=== PATIENT | male | born 1945 | race Caucasian/White ===

== ENCOUNTER 2025-01-30 06:43 | Emergency (ER) | payer MEDICARE, SELFPAY ==
--- NOTE | 2025-01-30 06:38 | CTR_ITS ---
PROCEDURE INFORMATION: Exam: CT Head Without Contrast Exam date and time: 01/30/2025 6:36 AM Age: 79 years old Clinical indication: Stroke-like symptoms; Speech disturbance; Additional info: Symptoms of acute stroke TECHNIQUE: Imaging protocol: Computed tomography of the head without contrast. Radiation optimization: All CT scans at this facility use at least one of these dose optimization techniques: automated exposure control; mA and/or kV adjustment per patient size (includes targeted exams where dose is matched to clinical indication); or iterative reconstruction. Other technique: STROKE PROTOCOL was implemented. COMPARISON: No relevant prior studies available. RADIATION DOSE METRICS: Total DLP (mGy-cm): 1090.08 FINDINGS: Brain: No hemorrhage. Periventricular white matter lucency represents atherosclerotic encephalopathic changes. Cerebral ventricles: No ventriculomegaly. Ventricular prominence proportionate to the degree of atrophy. Paranasal sinuses: Visualized sinuses are unremarkable. No fluid levels. Mastoid air cells: Visualized mastoid air cells are well aerated. Bones: Unremarkable. No acute fracture. Soft tissues: Unremarkable. Other findings: No mass effect. CT/CT head thrombolytic 99781 IMPRESSION: No acute intracranial abnormality. ASSESSMENT: ASPECTS ([place] Stroke Program Early CT Score) is 10.
--- NOTE | 2025-01-30 06:39 | W.ED.NEUROSD ---
HPI - Neuro Symptoms/Deficit General: Chief Complaint: Neuro Symptoms/Deficit Stated Complaint: low bp, fever History of Present Illness: 79-year-old male brought in by EMS as a stroke alert. Other complaints are low blood pressure and fever. Last known well was 2030 last evening. Patient is visiting here from [place]. On arrival here he is some slurred speech is difficult to tell if it is his usual speech ro or if there is actually an acute change. He gives a completely negative review of systems he has some vomitus on the front of his T-shirt which he acknowledges but cannot really give an explanation. There is no family at the bedside. Patient relates he is on medications but is not able to give any of the names of them. His stroke score was done initially when he was seen and was 1 for speech although I do not have a baseline to compare or any collateral history to endorse. Associated symptoms: Deny chest pain Related Data Home Medications ?Medication ?Instructions ?Recorded ?Confirmed amlodipine 5 mg tablet 5 mg PO DAILY 01/30/25 01/30/25 citalopram 20 mg tablet 20 mg PO DAILY 01/30/25 01/30/25 clopidogrel 75 mg tablet 75 mg PO DAILY 01/30/25 01/30/25 fluticasone propionate 50 1 spray intranasal DAILY 01/30/25 01/30/25 mcg/actuation nasal spray,suspension furosemide 20 mg tablet 20 mg PO DAILY PRN Edema 01/30/25 01/30/25 metoprolol succinate 25 mg 25 mg PO DAILY 01/30/25 01/30/25 tablet,extended release 24 hr rosuvastatin 40 mg tablet 40 mg PO DAILY 01/30/25 01/30/25 tramadol 50 mg tablet 50 mg PO Q8H PRN Pain 01/30/25 01/30/25 Previous Rx's ?Medication ?Instructions ?Recorded losartan 100 mg tablet 50 mg (1/2 x 100 mg) PO DAILY #30 01/30/25 tabs sitagliptin phosphate 50 mg tablet 50 mg PO DAILY #30 tabs 01/30/25 (Januvia) Allergies Allergy/AdvReac Type Severity Reaction Status Date / Time No Known Allergies Allergy Unverified 01/30/25 08:37 Review of Systems Const: Denies: fever(s) or chills Card: Denies: chest pain Resp: Denies: dyspnea GI: Denies: abdominal pain : Denies: dysuria, urinary frequency or urinary urgency Musc: Denies: neck pain or back pain Skin/Breast: Denies: rash NIH stroke score NIHSS: Level Of Consciousness - 1a: 0 Level Of Consciousness Questions - 1b: Both Correct Level Of Consciousness Commands - 1c: Both Correct Best Gaze - 2: Normal Visual Farrar - 3: No Visual Loss Facial Palsy - 4: Normal Motor Arm Right - 5: No Drift Motor Arm Left - 5: No Drift Motor Leg Right - 6: No Drift Motor Leg Left - 6: No Drift Limb Ataxia - 7: Absent Sensory - 8: Normal Best Language - 9: No Aphasia Dysarthia - 10: Mild/Moderate Dysarthia Extinction And Inattention - 11: 0 Score: Total Score: 1 Physical Exam Const: GENERAL APPEARANCE: cooperative ORIENTATION/CONSCIOUSNESS: Yes awake HENMT: COMMON NORMALS: normocephalic, atraumatic and hearing grossly normal bilaterally HEAD & SCALP: normocephalic and atraumatic Resp: COMMON NORMALS: normal respiratory effort, No retractions, No use of accessory muscles and clear to auscultation bilaterally AUSCULTATION: clear to auscultation bilaterally Cardio: COMMON NORMALS: regular rate, regular rhythm and No murmurs present (Cardio) RATE: regular rate RHYTHM: regular rhythm GI: COMMON NORMALS: Soft to palpation and No hepatosplenomegaly present AUSCULTATION: Yes normoactive bowel sounds PALPATION: Yes Soft to palpation, No Tenderness to palpation present (GI), No Guarding due to palpation present (GI) and Yes No hepatosplenomegaly present Extremity: COMMON NORMALS: normal to inspection, capillary refill normal, no clubbing, cyanosis or edema, no calf tenderness and no pedal edema Skin: COMMON NORMALS: no rashes or lesions noted GENERAL SKIN EXAM: no rashes or lesions noted Course Vital Signs: Vital signs: Vital Signs Temperature 97.7 F 01/30/25 06:45 Pulse Rate 62 01/30/25 08:31 Respiratory Rate 18 01/30/25 06:45 Blood Pressure 142/71 01/30/25 07:30 Pulse Oximetry 96 01/30/25 08:31 Oxygen Delivery Me thod Room Air 01/30/25 08:31 MDM - Neuro Symptoms/Deficit Medical Decision Making Glucose on arrival was 58 serum glucose 33. Patient was given orange juice as well as [address] head is negative. Patient glucose was rechecked he is doing much better he is not taking any of his morning meds today's was last glimepiride was yesterday. Family feels he is back at his baseline has been eating and drinking sustaining his blood glucose independently. He would prefer to go home at this point. Asked him to continue to monitor his blood sugars closely. He should stop his glimepiride and his metformin will put him on Januvia 50 mg once daily. Additionally because his creatinine is significantly elevated decrease his losartan to 50 mg daily. He should follow-up with his doctor as soon as he is able when he returns home. If blood sugar decreases and they cannot get it up or improved he should return to the emergency room. Medical Records I reviewed the patient's medical records. Lab Data I reviewed the patient's lab results. 01/30/25 06:46 01/30/25 06:[address] 01/30/25 06:38 IMPRESSION: No acute intracranial abnormality. ASSESSMENT: ASPECTS ([place] Stroke Program Early CT Score) is 10. ADDENDUM: 01/30/25 0704 THIS REPORT CONTAINS FINDINGS THAT MAY BE CRITICAL TO PATIENT CARE. The findings were electronically communicated via transcribed final report with TIM GUERRIER at 7:01 AM UROLOGIC NURSE on 01/30/2025. The findings were acknowledged and understood. Chest X-Ray 01/30/25 07:45 IMPRESSION: No acute chest abnormality. Laboratory Results WBC 9.29 10^3/uL (3.29-11.43) 01/30/25 06:46 RBC 5.18 10^6/uL (3.85-5.65) 01/30/25 06:46 Hgb 14.70 g/dL (11.27-16.99) 01/30/25 06:46 Hct 46.7 % (37-53) 01/30/25 06:46 MCV 90.2 fl (82-101) 01/30/25 06:46 MCH 28.4 pg (27-33) 01/30/25 06:46 MCHC 31.5 g/dL (30-55) 01/30/25 06:46 RDW 15.2 % (12.1-15.1) H 01/30/25 06:46 Plt Count 339 10^3/cmm (157-399) 01/30/25 06:46 MPV 9.4 fL (7.4-10.4) 01/30/25 06:46 Neut % (Auto) 68.6 % 01/30/25 06:46 Lymph % (Auto) 15.1 % 01/30/25 06:46 Meagher % (Auto) 13.3 % 01/30/25 06:46 Eos % (Auto) 1.7 % 01/30/25 06:46 Baso % (Auto) 1.0 % 01/30/25 06:46 Neut # (Auto) 6.37 10^3/uL (1.8-7.7) 01/30/25 06:46 Lymph # (Auto) 1.4 10^3/uL (0.8-4.8) 01/30/25 06:46 Meagher # (Auto) 1.2 10^3/uL (0.2-0.9) H 01/30/25 06:46 Eos # (Auto) 0.2 10^3/uL (0.0-0.8) 01/30/25 06:46 Baso # (Auto) 0.1 10^3/uL (0.0-0.1) 01/30/25 06:46 Nucleated RBC % (auto) 0 % 01/30/25 06:46 Nucleated RBCs # 0.0 /100WBC 01/30/25 06:46 PT 12.30 SECONDS (12.1-14.9) 01/30/25 06:46 INR 0.85 (0.8-1.2) 01/30/25 06:46 APTT 29.3 SECONDS (23.9-36.7) 01/30/25 06:46 Sodium 142 mmol/L (136-145) 01/30/25 06:46 Potassium 4.1 mmol/L (3.5-5.1) 01/30/25 06:46 Chloride 100 mmol/L (98-107) 01/30/25 06:46 Carbon Dioxide 26 mmol/L (22-29) 01/30/25 06:46 Anion Gap 20.1 (5-19) H 01/30/25 06:46 BUN 48 mg/dL (8-23) H 01/30/25 06:46 Creatinine 4.3 mg/dL (0.7-1.2) H 01/30/25 06:46 GFR Calculation Not Reportable 01/30/25 06:46 Glucose 39 mg/dL (65-115) L* 01/30/25 06:46 POC Glucose 106 mg/dL (70-110) 01/30/25 09:52 Calculated Osmolality 303 mOsm/kg (285-295) H 01/30/25 06:46 Lactic Acid 1.1 mmol/L (0.5-2.2) 01/30/25 06:46 Calcium 9.0 mg/dL (8.5-10.5) 01/30/25 06:46 Total Bilirubin 0.4 mg/dL (0.15-1.2) 01/30/25 06:46 AST 26 U/L (0-40) 01/30/25 06:46 ALT 13 U/L (0-41) 01/30/25 06:46 Alkaline Phosphatase 60 U/L (40-130) 01/30/25 06:46 Total Protein 8.2 g/dL (6.6-8.7) 01/30/25 06:46 Albumin 4.2 g/dL (3.5-5.2) 01/30/25 06:46 Globulin 4.0 g/dL (1.3-4.6) 01/30/25 06:46 Urine Color Yellow (Yellow) 01/30/25 07:50 Urine Appearance Cloudy (CLEAR) A 01/30/25 07:50 Urine pH 5.0 (5-7) 01/30/25 07:50 Ur Specific [place] 1.015 (1.005-1.030) 01/30/25 07:50 Urine Protein 2+ (Negative) A 01/30/25 07:50 Urine Glucose (UA) Negative (Normal) 01/30/25 07:50 Urine Ketones Negative (Negative) 01/30/25 07:50 Urine Blood 1+ (Negative) A 01/30/25 07:50 Urine Nitrate Negative (Negative) 01/30/25 07:50 Urine Bilirubin Negative (Negative) 01/30/25 07:50 Urine Urobilinogen 1.0 mg/dL (Negative) 01/30/25 07:50 Ur Leukocyte Esterase Negative (Negative) 01/30/25 07:50 Urine RBC 0-2 /hpf (0-2) 01/30/25 07:50 Urine WBC 0-5 /hpf (0-5) 01/30/25 07:50 Ur Squamous Epith Cells 11-20 /hpf (0-5) H 01/30/25 07:50 Amorphous Sediment Not Reportable 01/30/25 07:50 Urine Bacteria Trace /hpf (NONE) 01/30/25 07:50 Hyaline Casts 7.85 /lpf 01/30/25 07:50 Coarse Granular Casts 0-4 /lpf H 01/30/25 07:50 Urine Opiates Screen Negative ng/mL (Negative) 01/30/25 07:50 Ur Barbiturates Screen Negative ng/mL (Negative) 01/30/25 07:50 Ur Phencyclidine Scrn Negative ng/mL (Negative) 01/30/25 07:50 Ur Amphetamines Screen Negative ng/mL (Negative) 01/30/25 07:50 U Benzodiazepines Scrn Negative ng/mL (Negative) 01/30/25 07:50 Urine Cocaine Screen Negative ng/mL (Negative) 01/30/25 07:50 U Marijuana (THC) Screen Negative ng/mL (Negative) 01/30/25 07:50 Influenza A (PCR) Negative (Negative) 01/30/25 07:20 Influenza Type B (PCR) Negative (Negative) 01/30/25 07:20 RSV (PCR) Negative (Negative) 01/30/25 07:20 SARS-CoV-2 (PCR) Negative (Negative) 01/30/25 07:20 All radiology interpretation(s) finalized by discharge EKG Data EKG 1: I personally reviewed and interpreted this EKG as follows: Interpretation: EKG 01/30/2025 7:50 AM sinus rhythm rate of 64 WI interval [address]Tc [address] No acute [address] changes noted. No EKG available for comparison. Discharge Plan Discharge Patient Disposition: Home Clinical Impression: Hypoglycemia Condition: Stable Prescriptions: New Januvia 50 mg tablet 50 mg PO DAILY Qty: 30 0RF Changed losartan 100 mg tablet 50 mg PO DAILY Qty: 30 0RF Discontinued glimepiride 2 mg tablet 2 mg PO QAM metformin 500 mg tablet 500 mg PO BID No Action clopidogrel 75 mg tablet 75 mg PO DAILY amlodipine 5 mg tablet 5 mg PO DAILY tramadol 50 mg tablet 50 mg PO Q8H PRN (Reason: Pain) citalopram 20 mg tablet 20 mg PO DAILY metoprolol succinate 25 mg tablet extended release 24 hr 25 mg PO DAILY fluticasone propionate 50 mcg/actuation spray,suspension 1 spray INTRANASAL DAILY rosuvastatin 40 mg tablet 40 mg PO DAILY furosemide 20 mg tablet 20 mg PO DAILY PRN (Reason: Edema) Discharge Orders: Discharge ED (Routine); Ordered 01/30/25 Ordered By: Tim Guerrier Discharge Diet: Usual diet Discharge Activity: Resume usual activity Patient Instructions: Opioid Safety, Pain Management, Patient Portal & Umesh Instructions Activity Restrictions/Additional Instructions: Thank you for choosing [facility] for your healthcare needs today. It is very important that you follow up as instructed or that you return to the Emergency Department should you have concerns or if your condition changes or worsens in any way. Emergency department visits are focused on emergent conditions, in some cases you may require further evaluation on an outpatient basis. You were seen in the emergency room with difficulty with your speech and evaluated for or stroke which was negative. We did find that your glucose was significantly low at 33. You were given IV fluids to raise your glucose which did improve and your symptoms resolved. CT of your head was negative. We noted signs of chronic kidney issues on your lab work. Recommend the following in regards to your medications. Stop the glimepiride and the metformin as these can both be detrimental to your kidney function. Decrease your losartan to 50 mg once daily (half tablet). Finally we will start you on Januvia 50 mg daily, while this medicine helps lower blood sugars a does not cause hypoglycemia. You should follow-up with your doctor as soon as you are able when she return home. (Please note that included in your discharge packet is information concerning opioid safety and pain management. This information is given to all patients were discharged from the ER regardless of their discharge diagnosis or the medicines they usually take or are prescribed.) Print Language: Maltese Coding Level of Care Code ED Visual C Developer for Trena Chirinos
[2025-01-30 06:45] VITALS: BP 161/75; PULSE 67; RESP 18; TEMP 36.5; O2SAT 95; BMI 24.4
[2025-01-30 06:57] LABS: Hematocrit 46.7 % (37-53); Hemoglobin 14.70 g/dL (11.27-16.99); Mean Corpuscular HGB Conc 31.5 g/dL (30-55); Mean Corpuscular Hemoglobin 28.4 pg (27-33); Mean Corpuscular Volume 90.2 fl (82-101); Nucleated Red Blood Cells % 0 %; Platelet Count 339 10^3/cmm (157-399); Red Blood Count 5.18 10^6/uL (3.85-5.65); White Blood Count 9.29 10^3/uL (3.29-11.43)
[2025-01-30 07:10] VITALS: BP 161/75; PULSE 65
[2025-01-30 07:12] LABS: Lactic Sepsis W/Reflex 1.1 mmol/L (0.5-2.2)
[2025-01-30 07:13] LABS: Alanine Aminotransferase 13 U/L (0-41); Albumin Level 4.2 g/dL (3.5-5.2); Alkaline Phosphatase 60 U/L (40-130); Anion Gap 20.1 (5-19); Aspartate Amino Transferase 26 U/L (0-40); Blood Urea Nitrogen 48 mg/dL (8-23); Calcium 9.0 mg/dL (8.5-10.5); Carbon Dioxide 26 mmol/L (22-29); Chloride 100 mmol/L (98-107); Globulin 4.0 g/dL (1.3-4.6); Osmolality Calculated 303 mOsm/kg (285-295); Potassium 4.1 mmol/L (3.5-5.1); Sodium 142 mmol/L (136-145); Total Protein 8.2 g/dL (6.6-8.7)
[2025-01-30 07:18] LABS: Glucose 39 mg/dL (65-115)
[2025-01-30 07:23] LABS: INR 0.85 (0.8-1.2); Prothrombin Time 12.30 SECONDS (12.1-14.9)
[2025-01-30 07:24] LABS: Partial Thromboplastin Time 29.3 SECONDS (23.9-36.7)
[2025-01-30 07:30] VITALS: BP 142/71
--- NOTE | 2025-01-30 07:45 | XR_ITS ---
WS: [id number] XR chest 1V portable 02017 REASON FOR EXAM: Fever FINDINGS: No comparison examination. Mild to moderate tortuosity of the thoracic aorta with calcified aortic arch. Cardiomegaly. Coronary artery stent. Additional intracardiac device uncertain location likely atrial. Elevation of the right hemidiaphragm. Calcified granulomatous disease bilaterally. No acute pulmonary parenchymal or pleural abnormality. 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 Mild dextroscoliosis and degenerative spondylosis in the thoracic spine. XR/XR chest 1V portable [id number] IMPRESSION: No acute chest abnormality.
--- NOTE | 2025-01-30 07:50 | ECG_ITS ---
[facility] Test Date: 2025-01-30 Pat Name: Sha Bailey Department: Room: Gender: Male Slag Worker: : 1945 Requested By: Tim Nair Order Number: [id number] Mathieu MD: Alfredo Alvarez M.D. Measurements Intervals [place] Rate: 64 P: 46 SC: 200 QRS: -19 QRSD: 90 T: 28 QT: 418 QTc: 432 Interpretive Statements SINUS RHYTHM POSSIBLE ANTERIOR MYOCARDIAL INFARCTION , OF INDETERMINATE AGE [30 ms Q WAVE IN V3/V4, OR R < 0.2 mV IN V4] No previous ECG available for comparison Electronically Signed On 01-31-2025 14:04:57 PERSONNEL TRAINING OFFICER by Alfredo Alvarez M.D. [email or web address]
[2025-01-30 08:11] LABS: Glucose Urine UA Negative (Normal); Nitrate Urine Negative (Negative); Specific Gravity, Urine 1.015 (1.005-1.030)
[2025-01-30 08:12] LABS: Respiratory Syncytial Virus Ce NEGATIVE (Negative); SARS-CoV-2 PCR NEGATIVE (Negative)
[2025-01-30 08:20] LABS: PCP Screen Urine Negative (Negative)
[2025-01-30 08:25] LABS: Add Urine Microscopic? YES
[2025-01-30 08:31] VITALS: PULSE 62; O2SAT 96
--- NOTE | 2025-01-30 08:34 | PC.PHAR ---
Addendum entered by Adelina Hanna 01/30/25 08:37: Pt states he took all his meds yesterday. Original Note: [facility] states pt stopped filling Amlodipine 5mg when new order came in for Losartan 100mg. Pt also stopped filling Metformin 500mg last fill 08/27/24 90ds. Meds are verified with [facility] in [place] [phone].
[2025-01-30 08:35] LABS: UA Slide Review UA Slide Review Perf
== END 2025-01-30 10:03 | disposition home or self-care (01) ==
PROVIDERS: Emergency Provider Family Medicine
DX: R73.9 Hyperglycemia, unspecified (principal); Z11.52 Encounter for screening for COVID-19; Z79.02 Long term (current) use of antithrombotics/antiplatelets
CPT/HCPCS: 36416; 70450; 71045; 80053; 80306; 81001; 82962; 83605; 85025; 85610; 85730; 87040; 87637; 93005; 99285; J7030; J7799; J9999

== ENCOUNTER 2025-01-30 18:28 | Inpatient (IN) | payer MEDICARE, SELFPAY ==
[2025-01-30 18:31] VITALS: BP 137/62; PULSE 72; RESP 18; TEMP 36.7; O2SAT 100
--- OUTSIDE RECORDS SUMMARY | 2025-01-30 18:34 | XMS_ITS | Encounter Summary ---
Author Organization [facility] Address [address] [place], [address] Care Team Providers Care Punch Press Operator Helper Name Role Phone LeanneerTaurus MD Unavailable [phone] Mark Chery MD Primary Care Provider [phone] Lorena Ariza [facility] [phone] Merlene Wallis RN Unavailable Unavailable Milo Olson RN Unavailable Unavailable Osiris Mota RN Unavailable [phone] Pancho English MD Primary Care Provider [phone] Bernadette Bedolla RN Unavailable [phone] Encounter Details Date Type Department Care Team (Late st Contact Info) Description 04/15/2018 Medicare CCM [facility] [address] [place] [address] [place] [phone] Milo Olson, RN Type 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 disease, without long-term current use of insulin (HCC Code) (Primary Dx) Social History Tobacco Use Types Packs/Day Years Used Date Smoking Tobacco: Former Smokeless Tobacco: Former Chew Alcohol Use Standard Drinks/Week Comments No 0 (1 standard drink = 0.6 oz pur e alcohol) PHQ-2 Answer Date Recorded PHQ-2 Score 3 01/20/2018 Sex and Gender Information Value Date Recorded Sex Assigned at Not on file Legal Sex Male 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 Answer Date of Assessment Author No 11/30/2017 2:00 PM CDT Adolfo De La Garza, SULY * *Walks in Home Answer Date of Assessment Author No 11/30/2017 2:00 PM CDT Adolfo De La Garza, SULY * *Bathing Answer Date of Assessment Author No 11/30/2017 2:00 PM CDT Adolfo De La Garza RN * *Due to conditions difficulty w/ independent errands,shopping? Answer Date of Assessment Author No 11/30/2017 2:00 PM CDT Adolfo De La Garza RN documented as of this encounter Mental Status * *Due to conditions have difficulty w/decisions Answer Entry Date Author No 11/30/2017 2:00 PM CDT documented in this encounter Plan of Treatment Upcoming Encounters Date Type Department Care Team (Late st Contact Info) Description 02/09/2025 11:00 AM DENTAL INSTRUMENT MAKER Office Visit [facility] [address] [place] [address] 1[address] [place] [address] Sha Briggs MD [address] [place] [phone] 02/25/2025 2:00 PM DENTAL INSTRUMENT MAKER Office Visit [facility] [address] [place] [address], [place] [address] Fran Prajapati MD [address] [place] [phone] 02/27/2025 10:00 AM DENTAL INSTRUMENT MAKER Office Visit [facility] [address] [facility] [place] [address] Pancho English MD [address] [place] [address], [place] [phone] 05/13/2025 3:10 PM DENTAL INSTRUMENT MAKER [facility] Visit [facility] [address] [place] [address] Chris Read, LACE WINDER [address] [facility] [place] [address] documented as of this encounter Goals Goal Patient Goal Type Associated Problems Recent Progress Patient-Stated? Author Limit sodium intake to less than 2000 mg daily Additional Goals/Barriers Not on track(2024 2:34 PM CDT) Celestina Bejarano RN Take Plavix as prescribed Additional Goals/Barriers On track(2024 2:34 PM CDT) Celestina Bejarano RN CHF / AFib / CAD Additional Goals/Barriers On track(2024 2:33 PM CDT) Celestina Bejarano RN Note: Maintain pressure on skin tears for at least 5 minutes. Inspect skin with daily care and observe for bruising. Observe for signs of bleeding and report to provider immediately. Monitor for blood in urine, tarry colored stools, or bleeding after brushing teeth. Report any episodes of increased shortness of breath or chest pain Additional Goals/Barriers On track(2024 2:34 PM CDT) Celestina Bejarano RN Report any weight gain of three pounds overnight or five pounds in a week Additional Goals/Barriers On track(2024 2:34 PM CDT) Celestina Bejarano RN Note: CONGESTIVE HEART FAILURE (CHF): 1. Weigh yourself every morning at the same time with the same amount of clothes and before you eat or drink anything, and keep track of the readings on these sheets. Use the same scale each day. 2. Learn what your D ry Weight is, which is what you weigh without any extra water (fluid). Your goal is to keep your weight within 4 pounds of your dry weight. 3. If you gain more than 2-3 pounds in one day (24 hours) OR If you gain more than __5__lbs in five [5] days OR If you have swelling in legs, feet, or ankles, or you feel short of breath, then: A. Take an extra __Lasix 20 mg___ (fluid pill) that afternoon in addition to the usual dose of water pill that you usually take. Keep head elevated after eating Additional Goals/Barriers On track(2024 2:33 PM CDT) No Celestina Higgins RN Limit intake of spicy foods, greasy foods, and foods high in acid Additional Goals/Barriers Not on track(2024 2:33 PM CDT) Celestina Bejarano RN Limit intake of sugars, starches, and carbs and eat more fruits and vegetables Additional Goals/Barriers On track(2024 2:34 PM CDT) Celestina Bejarano RN Limit intake of fatty foods and eat more baked and grilled meats Additional Goals/Barriers On track(2024 2:33 PM CDT) Celestina Bejarano RN Blood Pressure < 140/90 Blood Pressure 134/63(12/02 9:37 AM CDT) Celestina Bejarano RN Plate method diet Diet On track(2024 2:34 PM CDT) Argentina Palacios RN Note: Diet, e.g. plate method - half plate fruits and vegetables, 1/4 plate lean meat, 1/4 plate starch (high-fiber/whole grain). Avoid carbohydrates in beverages (e.g. sweet tea, regular soda, fruit juice) Increase water intake Diet On track(2024 2:33 PM CDT) No Argentina Escamilla RN Note: Drink 40-60 ounces of water daily. Increase physical activity Lifestyle On track(2024 2:33 PM CDT) Argentina Palacios RN Note: Walk 10 minutes 3 days a week. Patient walks 4-6 miles daily. LDL CHOLESTEROL < 70 Result Component 62( 5 9:33 AM CDT) No Celestina Higgins RN PHOSPHORUS < 5.5 Result Component 3.6(08/25/19 8:08 PM CDT) No Celestina Higgins RN POTASSIUM < 5.5 Result Component 4.4(09/02/19 9:33 AM CDT) No Celestina Higgins RN Note: Low Potassium diet as needed to maintain this goal. HEMOGLOBIN A1C < 6.5 Result Component 5.9(12/03/19 9:38 AM CDT) No Argentina Escamilla RN documented as of this encounter Visit Diagnoses Diagnosis Type 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 disease, without long-term current use of insulin (HCC Code) (HCC)- Primary documented in this encounter Additional Health Concerns Infection Onset Date Last Indicated Resolved Time COVID-19 pending 09/19/2019 09/19/2019 09/21/2019 6:36 AM CDT COVID-19 pending 10/21/2019 10/21/2019 10/22/2019 12:10 PM CDT Mycoplasma pending 10/22/2019 10/22/2019 0 6:05 PM CDT COVID-19 pending 03/08/2020 03/08/2020 03/08/2020 11:04 AM DENTAL INSTRUMENT MAKER COVID-19 pending 03/08/2020 03/08/2020 03/08/2020 2:29 PM DENTAL INSTRUMENT MAKER COVID-19/FLU/RSV pending 05/08/2020 05/08/2020 10:52 AM DENTAL INSTRUMENT MAKER Mycoplasma pending 05/08/2020 05/08/2020 1 1:00 PM DENTAL INSTRUMENT MAKER documented as of this encounter Care Teams Punch Press Operator Helper Relationship Specialty Start Date End Date Mark Chery MD [address] [facility] [place], [phone] PCP - General Family Medicine 12/06/16 06/12/22 Pancho English MD [address] [place] [address], [place] [address] PCP - General Family Medicine 06/13/22 Taurus Jerry MD Cardiology 05/06/14 05/20/20 Lorena Ariza LMSW [address] [place] [address] Motorcycle Assembler 12/27/17 06/29/24 Merlene Wallis RN [address] [place] [address] CCM Computer Networking Instructor 12/27/17 Milo Olson RN [address] [place] [address] CCM Computer Networking Instructor 03/14/18 Osiris Mota, RN [address] [place] [address] Electric Repair Supervisor 08/25/21 09/23/21 Bernadette Bedolla, RN [address] [place] [address] Electric Repair Supervisor 06/30/24 documented as of this encounter
--- OUTSIDE RECORDS SUMMARY | 2025-01-30 18:34 | XMS_ITS | Encounter Summary ---
Author Organization [facility] Address [address] [place] [address] Care Team Providers Care External Auditor Name Role Phone Taurus Jerry MD Unavailable [phone] Mark Chery MD Primary Care Provider [phone] Celestina Higgins RN Unavailable Unavaila Lorena Crenshaw [facility] Unavailable [phone] Merlene Wallis RN Unavailable Unavailable Milo Olson RN Unavailable Unavailable Osiris Mota RN Unavailable [phone] Pancho English MD Primary Care Provider [phone] Mark Chery MD Unavailable [phone] Mark Chery MD Unavailable [phone] Bernadette Bedolla RN Unavailable [phone] Reason for Visit * Reason Comments Medication Refill Encounter Details Date Type Department Care Team (Late st Contact Info) Description 04/01/2014 Refill [facility] Care Services [address] [address] Lenore Ferrell MD [address] [place] [address] [place], [phone] Medication Refill Social History Tobacco Use Types Packs/Day Years Used Date Smoking Tobacco: Former Smokeless Tobacco: Current Chew Alcohol Use Standard Drinks/Week Comments No 0 (1 standard drink = 0.6 oz pur e alcohol) Sex and Gender Information Value Date Recorded Sex Assigned at Not on file Legal Sex Male 6:30 AM EDGER FEEDER Gender Identity Not on file Sexual Orientation Not on file documented as of this encounter Functional Status * Hearing - Left Ear Answer Date of Assessment Author No 01/28/2014 8:09 PM Russell Nunez RN * *Are you blind or serious difficulty even w/glasses? Answer Date of Assessment Author No 01/28/2014 8:09 PM EDGER FEEDER Russell Gilbert RN * *Walks in Home Answer Date of Assessment Author No 01/28/2014 8:09 PM Russell Nunez RN * *Bathing Answer Date of Assessment Author No 01/28/2014 8:09 PM Russell Nunez RN * *Due to conditions difficulty w/ independent errands,shopping? Answer Date of Assessment Author No 01/28/2014 8:09 PM Russell Nunez RN documented as of this encounter Mental Status * *Due to conditions have difficulty w/decisions Answer Entry Date Author No 01/28/2014 8:09 PM EDGER FEEDER documented in this encounter Plan of Treatment Upcoming Encounters Date Type Department Care Team (Late st Contact Info) Description 02/09/2025 11:00 AM EDGER FEEDER Office Visit [facility] Urology [address] [place] [address] 1st [place] [address] Sha Briggs MD [address] [place] [phone] 02/25/2025 2:00 PM EDGER FEEDER Office Visit Heart & Vascular [address] [place] [address], [place] [address] Fran Prajapati MD [address] [place] [address], [place] [phone] 02/27/2025 10:00 AM EDGER FEEDER Office Visit [address] [place] [address] Pancho English MD [address] [place] [address], [place] [phone] 05/13/2025 3:10 PM EDGER FEEDER [facility] [address] [place], [address] Chris Read, FEDERAL MEDIATION COMMISSIONER [address] [facility] [place], [address] documented as of this encounter Visit Diagnoses Not on filedocumented in this encounter Additional Health Concerns Infection Onset Date Last Indicated Resolved Time COVID-19 pending 09/19/2019 09/19/2019 09/21/2019 6:36 AM CDT COVID-19 pending 10/21/2019 10/21/2019 10/22/2019 12:10 PM CDT Mycoplasma pending 10/22/2019 10/22/2019 0 6:05 PM CDT COVID-19 pending 03/08/2020 03/08/2020 03/08/2020 11:04 AM EDGER FEEDER COVID-19 pending 03/08/2020 03/08/2020 03/08/2020 2:29 PM EDGER FEEDER COVID-19/FLU/RSV pending 05/08/2020 05/08/2020 10:52 AM EDGER FEEDER Mycoplasma pending 05/08/2020 05/08/2020 1:00 PM EDGER FEEDER documented as of this encounter Care Teams External Auditor Relationship Specialty Start Date End Date Mark Chery MD [address] [facility], [address] PCP - General Family Medicine 12/06/16 06/12/22 Pancho English MD [address] [place] [address], [phone] PCP - General Family Medicine 06/13/22 Mark Chery MD [address] [place] [address], [place] [address] PCP - Attributed Provider-Medicare ACO 09/08/17 10/16/17 Mark Chery MD [address] [facility], [address] PCP - Attributed Provider-Medicare ACO 12/09/17 03/25/18 Taurus Jerry MD Cardiology 05/06/14 05/20/20 Celestina Higgins, SULY [address] [facility], [address] CCM Radio News Writer 03/21/17 05/09/17 Lorena Ariza [facility] [address] [place] [address] Pediatric Physical Therapist 12/27/17 06/29/24 Merlene Wallis RN [address] [place] [address] CCM Radio News Writer 12/27/17 10/02/18 Milo Olson RN [address] [place] [address] CCM Radio News Writer 03/14/18 07/05/18 Osiris Mota, RN [address] [place] [address] Blanket Weaver 08/25/21 09/23/21 Bernadette Bedolla, SULY [address] [place] [address] Blanket Weaver 06/30/24 documented as of this encounter
--- OUTSIDE RECORDS SUMMARY | 2025-01-30 18:34 | XMS_ITS | Encounter Summary ---
Author Organization [facility] Address [address] [place] [address] Care Team Providers Care Neurosurgical Nurse Practitioner Name Role Phone Pancho English MD Primary Care Provider Bernadette Bedolla RN Unavailable [phone] Encounter Details Date Type Department Care Team (Late st Contact Info) Description 12/04/2024 Orders Only [facility] Care Services [address] [place] [address], [place] [address] Provider, MD Twin [address] [place] [address], [place] [address] Social History Tobacco Use Types Packs/Day Years Used Date Smoking Tobacco: Former Cigarettes Q uit: 1992 Pipe Passive Smoke Exposure: Never Smokeless Tobacco: Former Chew Quit: 1992 Alcohol Use Standard Drinks/Week Comments No 0 (1 standard drink = 0.6 oz pur e alcohol) B1300 Health Literacy Answer Date Recor ded How often do you need to hav e someone help you when you read instructions, pamphlets, or other written material from your doctor or pharmacy? Never 06/30/2024 [facility] Utilities Answer Date Recorded In the past 12 months has e [employer], gas, oil, or water [employer] threatened to shut off services in your home? No 06/30/2024 Humiliation, Afraid, Rape, and Kick questionnair e Answer Date Recorded Within the last year, have y ou been afraid of your partner or ex-partner? No 06/30/2024 Within the last year, have y ou been humiliated or emotionally abused in other ways by your partner or ex-partner? No Within the last year, have y ou been kicked, hit, slapped, or otherwise physically hurt by your partner or ex-partner? No 06/30/2024 Within the last year, have y ou been raped or forced to have any kind of sexual activity by your partner or ex-partner? No 06/30/2024 Social Connection and Isolation Panel Answer Date Recorded In a typical week, how many times do you talk on the phone with family, friends, or neighbors? More than three times a week 06/30/2024 Frequency of Social Gatherin gs with Friends and Family Not on file 06/30/2024 Attends Mosque Services Not on file 06/30 Do you belong to any clubs o r organizations such as spiritism groups, unions, fraternal or athletic groups, or school groups? No 06/30/2024 How often do you attend meet ings of the clubs or organizations you belong to? Never 06/30/2024 Are you , , di vorced, , never , or living with a partner? 06/30/2024 AUDIT-C Answer Date Recorded Q1: How often do you have a drink containing alcohol? Never 06/30/2024 Q2: How many drinks containi ng alcohol do you have on a typical day when you are drinking? Patient does not drink Q3: How often do you have si x or more drinks on one occasion? Never 06/30/2024 Overall Financial Resource Strain (CARDIA) Answe r Date Recorded How hard is it for you to pa y for the very basics like food, housing, medical care, and heating? Not hard at all 06/30/2024 PHQ-2 Answer Date Recorded Patient Health Questionnaire-2 Score 0 2024 [facility] [place] [facility] Occupat ional Health - Occupational Stress Questionnaire Answer Date Recorded Do you feel stress - tense, restless, nervous, or anxious, or unable to sleep at night because your mind is troubled all the time - these days? Not at all 06/30/2024 Exercise Vital Sign Answer Date Recorde d On average, how many days pe r week do you engage in moderate to strenuous exercise (like a brisk walk)? 0 days 06/30/2024 On average, how many minutes do you engage in exercise at this level? 0 min 06/30/2024 Hunger Vital Sign Answer Date Recorded Within the past 12 months, y ou worried that your food would run out before you got the money to buy more. Never true 07/01/19 Within the past 12 months, t he food you bought just didn't last and you didn't have money to get more. Never true 06/30/2024 PRAPARE - Transportation Answer Date Re corded In the past 12 months, has l ack of transportation kept you from medical appointments or from getting medications? No 06/11 In the past 12 months, has l ack of transportation kept you from meetings, work, or from getting things needed for daily living? No 06/30/2024 PHQ-9 Answer Date Recorded PHQ-9 Total Score 6 06/30/2024 Housing Stability Vital Sign Answer Mino e Recorded In the last 12 months, was t here a time when you were not able to pay the mortgage or rent on time? No 06/30/2024 In the past 12 months, how m any times have you moved where you were living? 0 06/30/2024 At any time in the past 12 m [facility], were you homeless or living in a correction (including now)? No 06/30/2024 NCSS - Interpersonal Safety Answer Date Recorded Do you feel physically and e motionally safe where you currently live? Yes 06/30/2024 Within the past 12 months, h ave you been hit, slapped, kicked or otherwise physically hurt by someone? No 06/30/2024 Within the past 12 months, h ave you been humiliated or emotionally abused in other ways by your partner or ex-partner? No 06/30/2024 Hunger Vital Sign Answer Date Recorded Within the past 12 months, y ou worried that your food would run out before you got the money to buy more. Never true 09/06/19 25 Within the past 12 months, t he food you bought just didn't last and you didn't have money to get more. Never true 2024 [facility] Utilities Answer Date Recorded In the past 12 months has th e electric, gas, oil, or water company threatened to shut off services in your home? No 2024 [facility] - Inadequate Housing Answer Date Re corded What is your living situation today? I have a [address] place to live [address] you li ve. Do you have problems with any of the following? None of the above 2024 [facility] - Transportation Answer Date Record ed In the past 12 months, has l ack of reliable transportation kept you from medical appointments, meetings, work or from getting things needed for daily living? No 2024 [facility] - Personal Safety Answer Date Recor ded How often does anyone, len zaragoza family and friends, physically hurt you? Never 2024 How often does anyone, len zaragoza family and friends, insult or talk down to you? Never 2024 How often does anyone, len zaragoza family and friends, threaten you with harm? Never 2024 How often does anyone, len zaragoza family and friends, scream or curse at you? Never 2024 [facility] - Financial Strain Answer Date Benito rded How hard is it for you to pa y for the very basics like food, housing, medical care, and heating? Would you say it is: Not hard at all 2024 [facility] - Employment Answer Date Recorded Do you want help finding or keeping work or a job? I do not need or want help 2024 [facility] - Social Connections Answer Date Re corded If for any reason you need h elp with day-to-day activities such as bathing, preparing meals, shopping, managing finances, etc., do you get the help you need? I don't need any help 2024 How often do you feel lonely or isolated from those around you? Never 2024 [facility] - Education Answer Date Recorded Do you speak a language other than [place] at [facility]? No 2024 Do you want help with school or training? For example, starting or completing job training or getting a high school diploma, GED or equivalent. No 2024 [facility] - Physical Activity Answer Date Rec orded In the last 30 days, other t osborne the activities you did for work, on average, how many days per week did you engage in moderate exercise (like walking fast, running, jogging, dancing, swimming, biking, or other similar activities)? 0 2024 On average, how many minutes did you usually spend exercising at this level on one of those days? 0 2024 [facility] - Substance Use Answer Date Recorde d How many times in the past 1 2 months have you had 5 or more drinks in a day (males) or 4 or more drinks in a day (females)? One drink is 12 ounces of beer, 5 ounces of wine, or 1.5 ounces of 80-proof spirits. Never 2024 How many times in the past 1 2 months have you used tobacco products (like cigarettes, cigars, snuff, chew, electronic cigarettes)? Never 2024 How many times in the past y ear have you used prescription drugs for non-medical reasons? Never 2024 How many times in the past year have you used il legal drugs? Never 2024 [facility] - Mental Health Answer Date Recorde d Little interest or pleasure in doing things Not at all 2024 Feeling down, depressed, or hopeless Not at all 2024 Stress means a situation in which a person feels tense, restless, nervous, or anxious, or is unable to sleep at night because his or her mind is troubled all the time. Do you feel this kind of stress these days? Not at all 2024 [facility] - Self-Management Answer Date Recor ded Because of a physical, menta l, or emotional condition, do you have serious difficulty concentrating, remembering, or making decisions? (5 years old or older) No 2024 Because of a physical, menta l, or emotional condition, do you have difficulty doing errands alone such as visiting a doctor's office or shopping? (15 years old or older) No 2024 Education Answer Date Recorded What is the highest level of school you have completed or the highest degree you have received? Associate degree: occupational, technical, or vocational program 08/30/2020 Sex and Gender Information Value Date Recorded Sex Assigned at Not on file Legal Sex Male 6:30 AM POT ROOM SUPERVISOR Gender Identity Not on file Sexual Orientation Not on file documented as of this encounter Functional Status * Hearing - Left Ear Answer Date of Assessment Author Yes 05/05/2022 1:00 PM Esther Anders RN * *Are you blind or serious difficulty even w/glasses? Answer Date of Assessment Author No 05/05/2022 1:00 PM POT ROOM SUPERVISOR Esther Lawton, RN * *Walks in Home Answer Date of Assessment Author No 05/05/2022 1:00 PM POT ROOM SUPERVISOR Esther Lawton, RN * *Bathing Answer Date of Assessment Author No 05/05/2022 1:00 PM Esther Anders, SULY * *Due to conditions difficulty w/ independent errands,shopping? Answer Date of Assessment Author No 05/05/2022 1:00 PM POT ROOM SUPERVISOR Esther Lawton RN documented as of this encounter Mental Status * *Due to conditions have difficulty w/decisions Answer Entry Date Author No 05/05/2022 1:00 PM POT ROOM SUPERVISOR Ady Max MD documented in this encounter Plan of Treatment Upcoming Encounters Date Type Department Care Team (Late st Contact Info) Description 02/09/2025 11:00 AM POT ROOM SUPERVISOR Office Visit [facility] Urology [address] [place] [address] 1st [place] [address] Sha Briggs MD [address] [place] [address], [place] [phone] 02/25/2025 2:00 PM POT ROOM SUPERVISOR Office Visit Heart & Vascular [address] [place] [address], [place] [address] Fran Prajapati MD [address] [place] [address], [place] [phone] 02/27/2025 10:00 AM POT ROOM SUPERVISOR Office Visit [address] [place] [phone] Pancho English MD [address] [place] [address], [place] [phone] 05/13/2025 3:10 PM POT ROOM SUPERVISOR [facility] [address] [facility] [address] [place], [address] Chris Read FNP [address] [facility] [place] [address] documented as of this encounter Goals Goal Patient Goal Type Associated Problems Recent Progress Patient-Stated? Author Limit sodium intake to less than 2000 mg daily Additional Goals/Barriers Not on track(2024 2:34 PM CDT) No Celestina Higgins RN Take Plavix as prescribed Additional Goals/Barriers [...] intake Diet On track(2024 2:33 PM CDT) Argentina Palacios RN Note: Drink 40-60 ounces of water daily. Increase physical activity Lifestyle On track(2024 2:33 PM CDT) Argentina Palacios RN Note: Walk 10 minutes 3 days a week. Patient walks 4-6 miles daily. LDL CHOLESTEROL < 70 Result Component 62( 9:33 AM CDT) No Celestina Higgins RN PHOSPHORUS < 5.5 Result Component 3.6(08/25/19 8:08 PM CDT) No Celestina Higgins RN POTASSIUM < 5.5 Result Component 4.4(09/02/19 9:33 AM CDT) No Celestina Higgins RN Note: Low Potassium diet as needed to maintain this goal. HEMOGLOBIN A1C < 6.5 Result Component 5.9(12/03/19 9:38 AM CDT) No Argentina Escamilla RN documented as of this encounter Procedures Procedure Name Priority Date/Time Associated Diagnosis Comments DIABETIC EYE EXAM - EXTERNAL Routine 11/24/2024 documented in this encounter Results * Diabetic Eye Exam - External (11/24/2024) Diabetic Retinopathy No Hypertensive Retinopathy No Anatomical Region Laterality Modality Radiographic Isabelle ging us Historical Provider MD OPHTHALMOLOGY SERVICES OR DERABLES Edited Result - Final documented in this encounter Visit Diagnoses Not on filedocumented in this encounter Care Teams Neurosurgical Nurse Practitioner Relationship Specialty Start Date End Date Pancho English MD [address] [place] [phone] PCP - General Family Medicine 06/13/22 Bernadette Bedolla RN [address] [place] [address] [place] [address] Facing Baster 06/30/24 documented as of this encounter
--- OUTSIDE RECORDS SUMMARY | 2025-01-30 18:34 | XMS_ITS | Encounter Summary ---
Author Organization [facility] Address [address] [address] Care Team Providers Care Risk Advisor Name Role Phone Taurus Jerry MD Unavailable [phone] Mark Chery MD Primary Care Provider [phone] Lorena Ariza [facility] Unavailable [phone] Osiris Mota RN Unavailable [phone] Pancho English MD Primary Care Provider [phone] Bernadette Bedolla RN Unavailable [phone] Encounter Details Date Type Department Care Team (Latest Contact Info) Description 12/18/2018 Scanned Document EXTERNAL Scan, Clinical [address] [facility] [address] Social History Tobacco Use Types Packs/Day Years Used Date Smoking Tobacco: Former Cigarettes Smokeless Tobacco: Former Chew Alcohol Use Standard Drinks/Week Comments No 0 (1 standard drink = 0.6 oz pur e alcohol) PHQ-2 Answer Date Recorded PHQ-2 Score 0 09/02/2018 Sex and Gender Information Value Date Recorded Sex Assigned at Not on file Legal Sex Male 6:30 AM FISHING VESSEL OPERATOR Gender Identity Not on file Sexual Orientation Not on file documented as of this encounter Functional Status * Hearing - Left Ear Answer Date of Assessment Author No 05/29/2018 6:22 PM CDT Familia Antunez, RN * *Are you blind or serious difficulty even w/glasses? Answer Date of Assessment Author No 05/29/2018 6:22 PM CDT Familia Antunez RN * *Walks in Home Answer Date of Assessment Author No 05/29/2018 6:22 PM CDT Familia Antunez RN * *Bathing Answer Date of Assessment Author No 05/29/2018 6:22 PM CDT Familia Antunez, SULY * *Due to conditions difficulty w/ independent errands,shopping? Answer Date of Assessment Author No 05/29/2018 6:22 PM CDT Familia Antunez RN documented as of this encounter Mental Status * *Due to conditions have difficulty w/decisions Answer Entry Date Author No 05/29/2018 6:22 PM CDT documented in this encounter Plan of Treatment Upcoming Encounters Date Type Department Care Team (Late st Contact Info) Description 02/09/2025 11:00 AM FISHING VESSEL OPERATOR Office Visit [facility] Urology [address] [place] [address] 1st [place] [address] Sha Briggs MD [address] [place] [address] 02/25/2025 2:00 PM FISHING VESSEL OPERATOR Office Visit Heart & Vascular [address] [place] [address], [place] [address] Fran Prajapati MD [address] [place] [address], [place] [address] 02/27/2025 10:00 AM FISHING VESSEL OPERATOR Office Visit [address] [place] [phone] Pancho English MD [address] [place] [address], [place] [phone] 05/13/2025 3:10 PM FISHING VESSEL OPERATOR [facility] [address] [place] [address] Chris Read FNP [address] [place] [address] documented as of this encounter Goals Goal [...] CDT) Celestina Bejarano RN Limit intake of spicy foods, greasy [...] diet Diet On track(2024 2:34 PM CDT) No Argentina Escamilla RN Note: Diet, e.g. plate method - [...] 70 Result Component 62( 9:33 AM CDT) Celestina Bejarano RN PHOSPHORUS < 5.5 Result Component 3.6(08/25/19 8:08 PM CDT) No Celestina Higgins RN POTASSIUM < 5.5 Result Component 4.4(09/02/19 9:33 AM CDT) No Celestina Higgins RN Note: Low Potassium diet as needed to maintain this goal. HEMOGLOBIN A1C < 6.5 Result Component 5.9(12/03/19 9:38 AM CDT) No Argentina Escamilal RN documented as of this encounter Visit Diagnoses Not on filedocumented in this encounter Additional Health Concerns Infection Onset Date Last Indicated Resolved Time COVID-19 pending 09/19/2019 09/19/2019 09/21/2019 6:36 AM CDT COVID-19 pending 10/21/2019 10/21/2019 10/22/2019 12:10 PM CDT Mycoplasma pending 10/22/2019 10/22/2019 0 6:05 PM CDT COVID-19 pending 03/08/2020 03/08/2020 03/08/2020 11:04 AM FISHING VESSEL OPERATOR COVID-19 pending 03/08/2020 03/08/2020 03/08/2020 2:29 PM FISHING VESSEL OPERATOR COVID-19/FLU/RSV pending 05/08/2020 05/08/2020 10:52 AM FISHING VESSEL OPERATOR Mycoplasma pending 05/08/2020 05/08/2020 1 1:00 PM FISHING VESSEL OPERATOR documented as of this encounter Care Teams Risk Advisor Relationship Specialty Start Date End Date Mark Chery MD [address] [place] [phone] PCP - General Family Medicine 12/06/16 06/12/22 Pancho English MD [address] [place] [address], [place] [phone] PCP - General Family Medicine 06/13/22 Taurus Jerry MD Cardiology 05/06/14 05/20/20 Lorena Ariza LMSW [address] [place] [address], [place] [address] Sleep Technologist 12/27/17 06/29/24 Osiris Mota, SULY [address] [place] [address], [place] [address] Baffle Installer 08/25/21 09/23/21 Bernadette Bedolla, RN [address] [place] [address], [place] [phone] Baffle Installer 06/30/24 documented as of this encounter
--- OUTSIDE RECORDS SUMMARY | 2025-01-30 18:34 | XMS_ITS ---
Author Organization [facility] Address [address] [place] [address] [place], [address] Care Team Providers Care Sales Associate Key Holder Name Role Phone Pancho English MD Primary Care Provider [phone] Bernadette Bedolla RN Unavailable [phone] Active Problems Patient Care Coordination No te Formatting of this note migh t be different from the original. The patient is a 79 y.o. male followed by Pancho Stone MD who has agreed to participate in the APCM program. The patient resides with family in own home. The patient does not require assistance with ADLS. The patient follows a low-sodium, diabetic diet and does notparticipate in an exercise program. In review of the chart, the patient has the following chronic diagnoses: CAD, HTN, CHF, AFIB, CKD5, OA, DM, GERD, HLD, Depression, BPH Problem Noted Date Diagnosed Date Hypertensive heart and chron ic kidney disease with heart failure and with stage 5 chronic kidney disease, or end stage renal disease 05/19/2022 History of prostate cancer 05/19/2022 Nausea and vomiting 05/05/2022 Primary localized osteoarthrosis of right should er region 05/30/2021 Nontraumatic complete tear of right rotator cuff 05/30/2021 Benign prostatic hyperplasia with nocturia 04/14 Hypertensive heart and renal disease with congestive heart failure (HCC Code) 11/05/2020 Respiratory distress 08/04/2020 Status post ablation of atrial fibrillation 07/11 Presence of Watchman left atrial appendage closu re device 06/08/2020 Acute on chronic systolic co ngestive heart failure (HCC Code) 10/21/2019 Diabetic gastroparesis (HCC Code) 10/21/2019 Dyspnea 09/25/2019 Class 1 obesity with serious comorbidity and body mass index (BMI) of 34.0 to 34.9 in adult 10/31/2018 Actinic keratosis due to exposure to sunlight Debility 06/21/2018 Cardiomyopathy, ischemic 06/18/2018 Severe obesity (BMI 35.0-39.9) with comorbidity (HCC Code) 12/07/2017 Chronic combined systolic an d diastolic congestive heart failure (HCC Code) 12/07/2017 Type 2 diabetes mellitus wit h stage 3 chronic kidney disease, without long-term current use of insulin (HCC Code) 12/07/2017 Mild single current episode of major depressive disorder 12/07/2017 Memory loss 12/11/2016 Gout, unspecified 07/13/2015 Chronic a-fib 07/13/2015 Bilateral knee pain 07/13/2015 CKD (chronic kidney disease) stage 3, GFR 30-59 ml/min 05/06/2014 Mixed hyperlipidemia 05/06/2014 Essential hypertension 05/06/2014 GERD (gastroesophageal reflux disease) 4 Hypertensive heart disease w ith chronic combined systolic and diastolic congestive heart failure (HCC Code) 01/28/2014 Atrial fibrillation with RVR (HCC Code) 01/29/20 14 Coronary artery disease invo lving [place] coronary artery of [place] heart with other form of angina pectoris Current Treatment and Therapy Plans No current plan information found. Past Treatment and Therapy Plans No past plan information found. Lifetime Dose Tracking * Chemical Lifetime Dose Automatic Entry Manual Entr y Radiation 121.3 mSv 121.3 mSv 0 mSv Resolved Problems Problem Noted Date Diagnosed Date Resolved Date Chest pain, rule out acute m yocardial infarction 05/05/2022 03/26/2024 Slurred speech 08/24/2021 08/25/2021 Acute congestive heart failure (HCC Code) 08/04/2020 04/29/2021 Atrial fibrillation with rap id ventricular response (HCC Code) 05/08/2020 09/01/2024 Pneumonia of both lungs due to infectious organism 03/08/2020 06/08/2022 Acute hypoxemic respiratory failure (HCC Code) 10/21/2019 10/23/2019 Hyperglycemic hyperosmolar n onketotic coma (HCC Code) 10/21/2019 10/21/2019 Prostate cancer (HCC Code) 11/29/2018 0 05/19/2022 Cancer Staging:Clinical stage from 12/05/2018:Stage IIB(cT1c, cN0, cM0, PSA: 19, Grade Group: 2) - Signed by Hazel Pollard MD on 12/05/2018 Hypertension 10/31/2018 03/10/2021 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 Weight as of 05/30/18: 218 lb 14.4 oz (99.3 kg). Influenza B 03/07/2017 03/20/2017 Morbid obesity with BMI of 4 0.0-44.9, adult (HCC Code) 07/13/2015 03/20/2017 Presence of stent in LAD coronary artery 07/13/2015 12/07/2017 Anticoagulated by anticoagulation treatment 07/13/2015 11/22/2019 Left ventricular systolic dysfunction 07/13/2015 12/07/2017 Mild mitral regurgitation 07/13/2015 Dry eyes 08/19/2014 12/07/2017 Cataract, nuclear 08/19/2014 12/07/2017 Presbyopia - Both Eyes 08/19/201412/07 Astigmatism 08/19/2014 12/07/2017 Far-sightedness 08/19/2014 12/07/2017 Diabetes mellitus without co mplication (HCC Code) 08/19/2014 06/12/2017 Type 2 diabetes mellitus wit h hyperglycemia, without long-term current use of insulin (HCC Code) 05/06/2014 09/02/2018 Acute on chronic systolic co ngestive heart failure (HCC Code) 01/29/2014 05/06/2014
--- OUTSIDE RECORDS SUMMARY | 2025-01-30 18:34 | XMS_ITS | Encounter Summary ---
Author Organization [facility] Address [address] [place], [address] Care Team Providers Care Sales Engineering Manager Name Role Phone Lorena Ariza [facility] Un[place] Pancho English MD Primary Care Provider [phone] Bernadette Bedolla RN Unavailable [phone] Encounter Details Date Type Department Care Team (Late st Contact Info) Description 02/05/[address] [place] [address] Pancho English MD [address] [place] [address], [place] [address] Social History Tobacco Use Types Packs/Day Years Used Date Smoking Tobacco: Former Cigarettes Q uit: 1992 Pipe Passive Smoke Exposure: Never Smokeless Tobacco: Former Chew Quit: 1992 Alcohol Use Standard Drinks/Week Comments No 0 (1 standard drink = 0.6 oz pur e alcohol) PHQ-2 Answer Date Recorded PHQ-2 Score Yes - No Depression 04/13/2023 PHQ-9 Answer Date Recorded PHQ-9 Total Score 2 04/13/2023 Education Answer Date Recorded What is the highest level of school you have completed or the highest degree you have received? Associate degree: occupational, technical, or vocational program 08/30/2020 Sex and Gender Information Value Date Recorded Sex Assigned at Not on file Legal Sex Male 6:30 AM SUPERINTENDENT GEOPHYSICAL LABORATORY Gender Identity Not on file Sexual Orientation Not on file documented as of this encounter Functional Status * Hearing - Left Ear Answer Date of Assessment Author Yes 05/05/2022 1:00 PM SUPERINTENDENT GEOPHYSICAL LABORATORY Esther Lawton, SULY * *Are you blind or serious difficulty even w/glasses? Answer Date of Assessment Author No 05/05/2022 1:00 PM SUPERINTENDENT GEOPHYSICAL LABORATORY Esther Lawton, RN * *Walks in Home Answer Date of Assessment Author No 05/05/2022 1:00 PM SUPERINTENDENT GEOPHYSICAL LABORATORY Esther Lawton, SULY * *Bathing Answer Date of Assessment Author No 05/05/2022 1:00 PM SUPERINTENDENT GEOPHYSICAL LABORATORY Esther Lawton, RN * *Due to conditions difficulty w/ independent errands,shopping? Answer Date of Assessment Author No 05/05/2022 1:00 PM SUPERINTENDENT GEOPHYSICAL LABORATORY Esther Lawton RN documented as of this encounter Mental Status * *Due to conditions have difficulty w/decisions Answer Entry Date Author No 05/05/2022 1:00 PM SUPERINTENDENT GEOPHYSICAL LABORATORY Ady Max MD documented in this encounter Miscellaneous Notes * Telephone Encounter - Dami Wray LPN - 02/06/2024 9:22 AM CST Samples left at manager helpdesk and pt notified [employer]OR[employer] * Telephone Encounter - Imani Lagunas - 02/05/2024 3:25 PM CST Needs jardiance 25 samples [employer] documented in this encounter Plan of Treatment Upcoming Encounters Date Type Department Care Team (Late st Contact Info) Description 02/09/2025 11:00 AM SUPERINTENDENT GEOPHYSICAL LABORATORY Office Visit [facility] Urology [address] [place] [address] 1st [place] [address] Sha Briggs MD [address] [place] [address] 02/25/2025 2:00 PM SUPERINTENDENT GEOPHYSICAL LABORATORY Office Visit Heart & Vascular [address] [place] [address] Fran Prajapati MD [address] [facility] [place], [phone] 02/27/2025 10:00 AM SUPERINTENDENT GEOPHYSICAL LABORATORY Office Visit [address] [place] [address] Pancho English MD [address] [place] [phone] 05/13/2025 3:10 PM SUPERINTENDENT GEOPHYSICAL LABORATORY [facility] [address] [place] [address] Chris Read FNP [address] [place] [address] documented as of this encounter Goals Goal Patient Goal Type Associated Problems Recent Progress Patient-Stated? Author Limit sodium intake to less than 2000 mg daily Additional Goals/Barriers Not on track(2024 2:34 PM CDT) No Celestina Higgins RN Take Plavix as prescribed Additional Goals/Barriers On track(2024 2:34 PM CDT) No Celestina Higgins RN CHF / AFib / CAD Additional Goals/Barriers On track(2024 2:33 PM CDT) No Celestina Higgins RN Note: Maintain pressure on skin tears for at least 5 minutes. Inspect skin with daily care and observe for bruising. Observe for signs of bleeding and report to provider immediately. Monitor for blood in urine, tarry colored stools, or bleeding after brushing teeth. Report any episodes of increased shortness of breath or chest pain Additional Goals/Barriers On track(2024 2:34 PM CDT) No Celestina Higgins, SULY Report any weight gain of three pounds overnight or five pounds in a week Additional Goals/Barriers On track(2024 2:34 PM CDT) No Celestina Higgins RN Note: CONGESTIVE HEART FAILURE (CHF): 1. [...] Goals/Barriers On track(2024 2:33 PM CDT) Celestina Bjearano RN Blood Pressure < 140/90 Blood Pressure 134/63(12/02 9:37 AM CDT) No Celestina Higgins RN Plate method diet Diet On track(2024 [...] activity Lifestyle On track(2024 2:33 PM CDT) No Argentina Escamilla RN Note: Walk 10 minutes 3 days a week. Patient walks 4-6 miles daily. LDL CHOLESTEROL < 70 Result Component 62( 9:33 AM CDT) No Celestina Higgins RN PHOSPHORUS < 5.5 Result Component 3.6(08/25/19 8:08 PM CDT) Celestina Bejarano RN POTASSIUM < 5.5 Result Component 4.4(09/02/19 9:33 AM CDT) Celestina Bejarano RN Note: Low Potassium diet as needed to maintain this goal. HEMOGLOBIN A1C < 6.5 Result Component 5.9(12/03/19 9:38 AM CDT) No Argentina Escamilla RN documented as of this encounter Visit Diagnoses Not on filedocumented in this encounter Care Teams Sales Engineering Manager Relationship Specialty Start Date End Date Pancho English MD [address] [place] [address] PCP - General Family Medicine 06/13/22 Lorena Ariza LMSW [address] [place] [address], [place] [address] Peach Grower 12/27/17 06/29/24 Bernadette Bedolla RN [address] [place] [address], [place] [address] Hollow Core Door Frame Assembler 06/30/24 documented as of this encounter
--- OUTSIDE RECORDS SUMMARY | 2025-01-30 18:34 | XMS_ITS | Encounter Summary ---
Author Organization [facility] Address [address] [place] [address] Care Team Providers Care Servicenow Administrator Developer Name Role Phone Taurus Jerry MD Unavailable [phone] Mark Chery MD Primary Care Provider [phone] Celestina Higgins RN Unavailable Unavaila Lorena Crenshaw [facility] [place] [place] Unavailable [phone] Merlene Wallis RN Unavailable Unavailable Milo Olson RN Unavailable Unavailable Osiris Mota RN Unavailable [phone] Pancho English MD Primary Care Provider [phone] Mark Chery MD Unavailable [phone] Mark Chery MD Unavailable [phone] Bernadette Bedolla RN Unavailable [phone] Encounter Details Date Type Department Care Team (Latest Contact Info) Description 08/19/2014 Scanned Document EXTERNAL Scan, Clinical [address] [facility] [place] [address] Social History Tobacco Use Types Packs/Day Years Used Date Smoking Tobacco: Former Smokeless Tobacco: Current Chew Alcohol Use Standard Drinks/Week Comments No 0 (1 standard drink = 0.6 oz pur e alcohol) Sex and Gender Information Value Date Recorded Sex Assigned at Not on file Legal Sex Male 6:30 AM COVERING MACHINE OPERATOR Gender Identity Not on file Sexual Orientation Not on file documented as of this encounter Functional Status * Hearing - Left Ear Answer Date of Assessment Author No 01/28/2014 8:09 PM Russell Nunez RN * *Are you blind or serious difficulty even w/glasses? Answer Date of Assessment Author No 01/28/2014 8:09 PM Russell Nunez RN * *Walks in Home Answer Date [...] Entry Date Author No 01/28/2014 8:09 PM COVERING MACHINE OPERATOR documented in this encounter Plan of Treatment Upcoming Encounters Date Type Department Care Team (Late st Contact Info) Description 02/09/2025 11:00 AM COVERING MACHINE OPERATOR Office Visit [facility] Urology [address] [place] [address] 1st [place] [address] Sha Briggs MD [address] [place] [address], [place] [phone] 02/25/2025 2:00 PM COVERING MACHINE OPERATOR Office Visit Heart & Vascular [address] [place] [address], [place] [address] Fran Prajapati MD [address] [place] [address] 02/27/2025 10:00 AM COVERING MACHINE OPERATOR Office Visit [address] [place] [phone] Pancho English MD [address] [place] [address], [place] [phone] 05/13/2025 3:10 PM COVERING MACHINE OPERATOR [facility] Visit [facility] [address] [address] [address] [place] [address] ReadChris, CUSTOMER CARE SPECIALIST [address] [facility] [place], [address] documented as of this encounter Visit Diagnoses Not on filedocumented in this encounter Additional Health Concerns Infection Onset Date Last Indicated Resolved Time COVID-19 pending 09/19/2019 09/19/2019 09/21/2019 6:36 AM CDT COVID-19 pending 10/21/2019 10/21/2019 10/22/2019 12:10 PM CDT Mycoplasma pending 10/22/2019 10/22/2019 0 6:05 PM CDT COVID-19 pending 03/08/2020 03/08/2020 03/08/2020 11:04 AM COVERING MACHINE OPERATOR COVID-19 pending 03/08/2020 03/08/2020 03/08/2020 2:29 PM COVERING MACHINE OPERATOR COVID-19/FLU/RSV pending 05/08/2020 05/08/2020 10:52 AM COVERING MACHINE OPERATOR Mycoplasma pending 05/08/2020 05/08/2020 1:00 PM COVERING MACHINE OPERATOR documented as of this encounter Care Teams Servicenow Administrator Developer Relationship Specialty Start Date End Date Mark Chery MD [address] [place] [address], [place] [address] PCP - General Family Medicine 12/06/16 06/12/22 Pancho English MD [address] [place] [phone] PCP - General Family Medicine 06/13/22 Mark Chery MD [address] [place] [address], [place] [address] PCP - Attributed Provider-Medicare ACO 09/08/17 10/16/17 Mark Chery MD [address] [place] [address] PCP - Attributed Provider-Medicare ACO 12/09/17 03/25/18 Taurus Jerry MD Cardiology 05/06/14 05/20/20 Celestina Higgins, RN [address] [place] [address] CCM [employer] Mechanic 03/21/17 05/09/17 Lorena Ariza [facility] [place] [place] [address] [place] [address] Hybrid Tester 12/27/17 06/29/24 Merlene Wallis RN [address] [place] [address], [place] [address] CCM [employer] Mechanic 12/27/17 10/02/18 Milo Olson RN [address] [place] [address] CCM [employer] Mechanic 03/14/18 07/05/18 Osiris Mota, RN [address] [place] [address], [place] [address] Log Preparer 08/25/21 09/23/21 Bernadette Bedolla, RN [address] [address] Log Preparer 06/30/24 documented as of this encounter
--- OUTSIDE RECORDS SUMMARY | 2025-01-30 18:34 | XMS_ITS | Encounter Summary ---
Author Organization [facility] Address [address] [place] [address] Care Team Providers Care Building Wrecker Name Role Phone Pancho English MD Primary Care Provider [phone] Bernadette Bedolla RN Unavailable [phone] Encounter Details Date Type Department Care Team ([facility] Contact Info) Description 01/12/[address] [place] [address] Pancho English MD [address] [place] [address], [place] [address] Social History Tobacco Use Types Packs/Day [...] from your doctor or pharmacy? Never 06/30/2024 [facility] Utilities Answer Date Recorded In the past 12 months has e electric, gas, oil, or water company [...] and Family Not on file 06/30/2024 Attends Congregational Services Not on file 06/30 Do you belong to any clubs o r organizations such as protestant groups, unions, fraternal or athletic groups, or [...] Recorded Patient Health Questionnaire-2 Score 0 2024 [facility] [place] of Occupat ional Health - Occupational Stress [...] any time in the past 12 m [facility], were you homeless or living in a residential (including now)? No 06/30/2024 [facility] - Interpersonal [...] money to get more. Never true 2024 [facility] Utilities Answer Date Recorded In the past 12 months has th e electric, gas, oil, or water company threatened to shut off services in your home? No 2024 [facility] - Inadequate Housing Answer Date Re corded What is your living situation today? I have a [facility] place to live [address] you li ve. Do you have problems with any of the following? None of the above 2024 [facility] - Transportation Answer Date Record ed In the past 12 months, has l ack of reliable transportation kept you from medical appointments, meetings, work or from getting things needed for daily living? No 2024 [facility] - Personal Safety Answer Date Recor ded [...] scream or curse at you? Never 2024 [facility] - Financial Strain Answer Date Benito rded How hard is it for you to pa y for the very basics like food, housing, medical care, and heating? Would you say it is: Not hard at all 2024 [facility] - Employment Answer Date Recorded Do you want help finding or keeping work or a job? I do not need or want help 2024 [facility] - Social Connections Answer Date Re corded If for any reason you need h elp with day-to-day activities such as bathing, preparing meals, shopping, managing finances, etc., do you get the help you need? I don't need any help 2024 How often do you feel lonely or isolated from those around you? Never 2024 [facility] - Education Answer Date Recorded Do you speak a language other than [place] at [facility]? No 2024 Do you want help with school or training? For example, starting or completing job training or getting a high school diploma, GED or equivalent. No 2024 [facility] - Physical Activity Answer Date Rec orded [...] on one of those days? 0 2024 [facility] - Substance Use Answer Date Recorde d [...] you used il legal drugs? Never 2024 [facility] - Mental Health Answer Date Recorde d [...] stress these days? Not at all 2024 [facility] - Self-Management Answer Date Recor ded Because [...] file Legal Sex Male 6:30 AM SUPERINTENDENT SERVICE Gender Identity Not on file Sexual Orientation Not on file documented as of this encounter Functional Status * Hearing - Left Ear Answer Date of Assessment Author Yes 05/05/2022 1:00 PM SUPERINTENDENT SERVICE Esther Lawton, SULY * *Are you blind or serious difficulty even w/glasses? Answer Date of Assessment Author No 05/05/2022 1:00 PM SUPERINTENDENT SERVICE Esther Lawton, RN * *Walks in Home Answer Date of Assessment Author No 05/05/2022 1:00 PM SUPERINTENDENT SERVICE Esther Lawton, SULY * *Bathing Answer Date of Assessment Author No 05/05/2022 1:00 PM SUPERINTENDENT SERVICE Esther Lawton, SULY * *Due to conditions difficulty w/ independent errands,shopping? Answer Date of Assessment Author No 05/05/2022 1:00 PM SUPERINTENDENT SERVICE Esther Lawton RN documented as of this encounter Mental Status * *Due to conditions have difficulty w/decisions Answer Entry Date Author No 05/05/2022 1:00 PM SUPERINTENDENT SERVICE Ady Max MD documented in this encounter Miscellaneous Notes * Telephone Encounter - Imani Lagunas - 01/15/2025 4:08 PM CST Karyn called to follow up. Asking for PT due to patients recent falls RINTENDENT SERVICE * Telephone Encounter - Imani Lagunas - 01/12/2025 1:06 PM CST [facility] out patient rehab called, said they just completed OT eval, also asking for PT eval to be ordered RINTENDENT SERVICE documented in this encounter Plan of Treatment Upcoming Encounters Date Type Department Care Team (Late st Contact Info) Description 02/09/2025 11:00 AM SUPERINTENDENT SERVICE Office Visit [facility] Urology [address] 1st [place] [address] Sha Briggs MD [address] [place] [address] [facility] [place] [phone] 02/25/2025 2:00 PM SUPERINTENDENT SERVICE Office Visit Heart & Vascular [address] [place] [address] Fran Prajapati MD [address] [place] [phone] 02/27/2025 10:00 AM SUPERINTENDENT SERVICE Office Visit [address] [place] [phone] Pancho English MD [address] [place] [address], [place] [phone] 05/13/2025 3:10 PM SUPERINTENDENT SERVICE [facility] [address] [place] [address] Chris Read FNP [address] [place] [address] documented as of this encounter Goals Goal [...] 2:34 PM CDT) No Celestina Higgins RN Report any weight gain of three [...] on filedocumented in this encounter Care Teams Building Wrecker Relationship Specialty Start Date End Date Pancho English MD [address] [place] [address] PCP - General Family Medicine 06/13/22 Bernadette Bedolla RN [address] [place] [address] [place] [address] Construction Worker 4/21/25 documented as of this encounter
--- OUTSIDE RECORDS SUMMARY | 2025-01-30 18:34 | XMS_ITS | Encounter Summary ---
Author Organization [facility] Address [address] [place] [address] Care Team Providers Care Remediation Project Engineer Name Role Phone Pancho English MD Primary Care Provider [phone] Bernadette Bedolla RN Unavailable [phone] Encounter Details Date Type Department Care Team ([facility] Contact Info) Description 11/19/[address] [place] [address] Pancho English MD [address] [place] [address], [place] [address] Social History Tobacco Use Types Packs/Day [...] from your doctor or pharmacy? Never 06/30/2024 [facility] Utilities Answer Date Recorded In the past [...] and Family Not on file 06/30/2024 Attends [employer] Not on file 06/30 Do you belong to any clubs o r organizations such as jain groups, unions, fraternal or athletic groups, or [...] Recorded Patient Health Questionnaire-2 Score 0 2024 [facility] Occupat ional [facility] - Occupational Stress [...] any time in the past 12 m [facility], were you homeless or living in a halfway (including now)? No 06/30/2024 [facility] - Interpersonal [...] money to get more. Never true 2024 [facility] Utilities Answer Date Recorded In the past 12 months has th e electric, gas, oil, or water company threatened to shut off services in your home? No 2024 [facility] - Inadequate Housing Answer Date Re corded What is your living situation today? I have a [facility] [address] place to live [address] you li ve. Do you have problems with any of the following? None of the above 2024 [facility] - Transportation Answer Date Record ed In the past 12 months, has l ack of reliable transportation kept you from medical appointments, meetings, work or from getting things needed for daily living? No 2024 [facility] - Personal Safety Answer Date Recor ded [...] scream or curse at you? Never 2024 [facility] - Financial Strain Answer Date Benito rded How hard is it for you to pa y for the very basics like food, housing, medical care, and heating? Would you say it is: Not hard at all 2024 [facility] - Employment Answer Date Recorded Do you want help finding or keeping work or a job? I do not need or want help 2024 [facility] - Social Connections Answer Date Re corded If for any reason you need h elp with day-to-day activities such as bathing, preparing meals, shopping, managing finances, etc., do you get the help you need? I don't need any help 2024 How often do you feel lonely or isolated from those around you? Never 2024 [facility] - Education Answer Date Recorded Do you speak a language other than [place] at [facility]? No 2024 Do you want help with school or training? For example, starting or completing job training or getting a high school diploma, GED or equivalent. No 2024 [facility] - Physical Activity Answer Date Rec orded [...] on one of those days? 0 2024 [facility] - Substance Use Answer Date Recorde d [...] you used il legal drugs? Never 2024 [facility] - Mental Health Answer Date Recorde d [...] stress these days? Not at all 2024 [facility] - Self-Management Answer Date Recor ded Because [...] on file Legal Sex Male 6:30 AM OPTICAL BRIGHTENER MAKER HELPER Gender Identity Not on file Sexual Orientation Not on file documented as of this encounter Functional Status * Hearing - Left Ear Answer Date of Assessment Author Yes 05/05/2022 1:00 PM OPTICAL BRIGHTENER MAKER HELPER Esther Lawton, SULY * *Are you blind or serious difficulty even w/glasses? Answer Date of Assessment Author No 05/05/2022 1:00 PM OPTICAL BRIGHTENER MAKER HELPER Esther Lawton, SULY * *Walks in Home Answer Date of Assessment Author No 05/05/2022 1:00 PM OPTICAL BRIGHTENER MAKER HELPER Esther Lawton, SULY * *Bathing Answer Date of Assessment Author No 05/05/2022 1:00 PM OPTICAL BRIGHTENER MAKER HELPER Esther Lawton, SULY * *Due to conditions difficulty w/ independent errands,shopping? Answer Date of Assessment Author No 05/05/2022 1:00 PM OPTICAL BRIGHTENER MAKER HELPER Esther Lawton RN documented as of this encounter Mental Status * *Due to conditions have difficulty w/decisions Answer Entry Date Author No 05/05/2022 1:00 PM OPTICAL BRIGHTENER MAKER HELPER Ady Max MD documented in this encounter Miscellaneous Notes * Telephone Encounter - Dami Wray LPN - 11/19/2024 11:29 AM CDT LEFT AT [employer] [facility]ER AND PT NOTIFIED THROUGH [facility] * Telephone Encounter - Nida Montiel - 11/19/2024 10:27 AM CDT Pt needs handicap form filled out documented in this encounter Plan of Treatment Upcoming Encounters Date Type Department Care Team (Late st Contact Info) Description 02/09/2025 11:00 AM OPTICAL BRIGHTENER MAKER HELPER Office Visit [facility] Urology [address] [place] [address] Sha Briggs MD [address] [place], [phone] 02/25/2025 2:00 PM OPTICAL BRIGHTENER MAKER HELPER Office Visit Heart & Vascular [address] [place] [address] Fran Prajapati MD [address] [place], [phone] 02/27/2025 10:00 AM OPTICAL BRIGHTENER MAKER HELPER Office Visit [address] [place] [address] Pancho English MD [address] [place] [address], [place] [phone] 05/13/2025 3:10 PM OPTICAL BRIGHTENER MAKER HELPER [facility] [address] [facility] [place] [address] Chris Read FNP [address] [facility] [place] [address] documented as of this encounter Goals Goal [...] on filedocumented in this encounter Care Teams Remediation Project Engineer Relationship Specialty Start Date End Date Pancho English MD [address] [facility] [place] [address] PCP - General Family Medicine 06/13/22 Bernadette Bedolla RN [address] [place], [phone] News Agent 06/30/24 documented as of this encounter
--- OUTSIDE RECORDS SUMMARY | 2025-01-30 18:34 | XMS_ITS | Encounter Summary ---
Author Organization [facility] Address [address] [facility] [address] Care Team Providers Care Personal Companion Name Role Phone Taurus Jerry MD Unavailable [phone] Mark Chery MD Primary Care Provider [phone] Lorena Ariza [facility] Unavailable [phone] Osiris Mota RN Unavailable [phone] Pancho English MD Primary Care Provider [phone] Bernadette Bedolla RN Unavailable [phone] Encounter Details Date Type Department Care Team (Late st Contact Info) Description 05/21/2019 Telephone [facility] [address] [place] [address] 2nd [place] [address] Rose Max MD [address] [facility] [place] [address] Social History Tobacco Use Types Packs/Day Years Used Date Smoking Tobacco: Former Cigarettes Smokeless Tobacco: Former Chew Alcohol Use Standard Drinks/Week Comments No 0 (1 standard drink = 0.6 oz pur e alcohol) PHQ-2 Answer Date Recorded PHQ-2 Score Yes - No Depression 04/22/2019 Sex and Gender Information Value Date Recorded Sex Assigned at Not on file Legal Sex Male 6:30 AM EMR ANALYST Gender Identity Not on file Sexual Orientation Not on file documented as of this encounter Functional Status * Is the person deaf or does he/she have difficulty hearing? Answer Date of Assessment Author No 05/21/2019 1:40 PM CDT Familia Antunez RN * Is this person blind or does he/she have serious difficulty seeing even when wearing glasses? Answer Date of Assessment Author No 05/21/2019 1:40 PM CDT Familia Antunez RN * Does this person have serious difficulty walking or climbing stairs? Answer Date of Assessment Author No 05/21/2019 1:40 PM CDT Familia Antunez RN * Does this person have difficulty dressing or bathing? Answer Date of Assessment Author No 05/21/2019 1:40 PM CDT Familia Antunez RN * Because of a medical condition, does this person have difficulty doing errands alone such as visiting a doctor's office or shopping? Answer Date of Assessment Author No 05/21/2019 1:40 PM CDT Familia Antunez RN documented as of this encounter Mental Status * Because of a medical condition, does this person have serious difficulty concentrating, remembering, or making decisions? Answer Entry Date Author No 05/21/2019 1:40 PM CDT Ady Max MD documented in this encounter Miscellaneous Notes * Telephone Encounter - Ruchi Vila - 05/21/2019 2:04 PM CDT Called pt to inform that his appt with was scheduled for June 02 at 1:15pm. documented in this encounter Plan of Treatment Upcoming Encounters Date Type Department Care Team (Late st Contact Info) Description 02/09/2025 11:00 AM EMR ANALYST Office Visit [facility] Urology [address] 1st [place] [address] Sha Briggs MD [address] [place] [facility] [place] [address] 02/25/2025 2:00 PM EMR ANALYST Office Visit Heart & Vascular [address] [facility] [place] [address] Fran Prajapati MD [address] [facility] [place] [facility] [place], [phone] 02/27/2025 10:00 AM EMR ANALYST Office Visit [address] [place] [address] Pancho English MD [address] [facility] [address] 05/13/2025 3:10 PM EMR ANALYST [facility] Visit [facility] [address] [place] [address] Chris Read FNP [address] [place] [address] documented as of this encounter Goals Goal [...] Goals/Barriers On track(2024 2:34 PM CDT) Celestina Bejarano, RN Report any weight gain of three [...] 6.5 Result Component 5.9(12/03/19 9:38 AM CDT) Argentina Palacios RN documented as of this encounter Visit Diagnoses Not on filedocumented in this encounter Additional Health Concerns Infection Onset Date Last Indicated Resolved Time COVID-19 pending 09/19/2019 09/19/2019 09/21/2019 6:36 AM CDT COVID-19 pending 10/21/2019 10/21/2019 10/22/2019 12:10 PM CDT Mycoplasma pending 10/22/2019 10/22/2019 0 6:05 PM CDT COVID-19 pending 03/08/2020 03/08/2020 03/08/2020 11:04 AM EMR ANALYST COVID-19 pending 03/08/2020 03/08/2020 03/08/2020 2:29 PM EMR ANALYST COVID-19/FLU/RSV pending 05/08/2020 05/08/2020 10:52 AM EMR ANALYST Mycoplasma pending 05/08/2020 05/08/2020 1:00 PM EMR ANALYST documented as of this encounter Care Teams Personal Companion Relationship Specialty Start Date End Date Mark Chery MD [address] [facility] [place] [address] PCP - General Family Medicine 12/06/16 06/12/22 Pancho English MD [address] [place] [address] PCP - General [facility] Medicine 06/13/22 Taurus Jerry MD Cardiology 05/06/14 05/20/20 Lorena Ariza [facility] [address] [place] [address], [place] [address] Rail Walker 12/27/17 06/29/24 Osiris Mota RN [address] [place] [address], [place] [address] News Wire Photo Operator 08/25/21 09/23/21 Bernadette Bedolla RN [address] [place] [address] News Wire Photo Operator 06/30/24 documented as of this encounter
--- OUTSIDE RECORDS SUMMARY | 2025-01-30 18:34 | XMS_ITS | Clinical Summary ---
Author Organization [facility] Address [address] [place] [address] [place], [address] Care Team Providers Care Dowel Inserting Machine Operator Name Role Phone Pancho English MD Primary Care Provider Bernadette Bedolla RN Unavailable [phone] Allergies Active Allergy Reactions Criticality Noted Date Comments Penicillins Rash Low 04/04/2013 Medications [place]-3 Fatty Acids (FISH OIL) 500 MG CAPS Take 1 capsule by mouth daily. Active docusate sodium (COLACE) 100 MG capsule Take 100 mg by mouth daily. Active mirabegron (MYRBETRIQ) 50 MG 24 hr tabletIndications :Urinary urgency Take 1 tablet (50 mg total) by mouth daily. 30 tablet 11 08/14/19 20 Active aspirin 81 MG EC tablet Take 1 tablet (81 mg total) by mouth daily. 30 tablet 11 06/12/19 21 Active famotidine (PEPCID) 20 MG tablet Take 20 mg by mouth once daily. Active [place] 3 1000 MG CAPS Take 2 capsules (2,000 mg total) by mouth 2 (two) times daily. 180 each 06/09/19 23 Active nitroGLYCERIN (NITROSTAT) 0.4 MG SL tabletIndications :Coronary artery disease of [place] artery of [place] heart with stable angina pectoris (HCC Code) Place 1 tablet (0.4 mg total) under the tongue every 5 (five) minutes as needed for Chest pain. 90 tablet 3 06/14/19 23 Active losartan (COZAAR) 100 MG tablet Take 1 tablet (100 mg total) by mouth daily. 30 tablet 11 06/04/19 25 026 Active empagliflozin (JARDIANCE) 25 MG tablet Take 25 mg by mouth daily. Active sacubitril-valsar sood (ENTRESTO) 49-51 MG per tablet Take 1 tablet by mouth 2 (two) times daily. Active metoprolol (TOPROL-XL) 25 MG 24 hr tabletIndications :Hypertensive heart and renal disease with congestive heart failure (HCC Code) ([facility]) Take 1 tablet (25 mg total) by mouth daily. 90 tablet 3 07/02/19 25 026 Active rosuvastatin (CRESTOR) 40 MG tabletIndications :Hypertensive heart and renal disease with congestive heart failure (HCC Code) ([facility]) Take 1 tablet (40 mg total) by mouth daily. 90 tablet 07/02/19 026 Active Misc supplyIndications :Type 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 disease, without long-term current use of insulin, unspecified whether stage 3a or 3b CKD (HCC Code) ([facility]) Glucometer( [employer] insurance will cover), lancets, test strips, alcohol pads, control solution Check blood glucose twice a day 1 each 07/02/19 25 Active amLODIPine (NORVASC) 5 MG tabletIndications :Hypertensive heart and renal disease with congestive heart failure (HCC Code) ([facility]) Take 1 tablet (5 mg total) by mouth daily. 90 tablet 3 09/10/19 25 Active clopidogrel (PLAVIX) 75 MG tablet Take 1 tablet (75 mg total) by mouth daily. 90 tablet 3 09/10/19 25 Active furosemide (LASIX) 20 MG tablet Take 1 tablet (20 mg total) by mouth daily as needed. 90 tablet 3 09/10/19 25 Active glimepiride (AMARYL) 2 MG tablet Take 2 mg by mouth daily. 09/30/19 25 Active fluticasone (FLONASE) 50 MCG/ACT nasal sprayIndications: Bilateral chronic serous otitis media 1 spray by Each Nare route daily. 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 180 tablet 01/15/20 25 Active traMADol (ULTRAM) 50 MG tabletIndications :Primary osteoarthritis of right shoulder Take 2 tablets (100 mg total) by mouth every 8 (eight) hours as needed. 180 tablet 2 09/02/19 25 025 Discontinued Active Problems Patient Care Coordination No te [...] 01/29/20 14 Coronary artery disease invo lving [place] coronary artery of [place] heart with other form of angina pectoris Resolved Problems Problem Noted Date Diagnosed Date [...] with type 2 diabetes mellitus (HCC Code) 12/07/2017 10/0 10/2018 Chest pain with low risk for cardiac [...] ngestive heart failure (HCC Code) 01/29/2014 05/06/2014 Encounters Date Type Department Care Team Description 01/16/2025 Orders Only [facility] [address] [facility] [place] [address] Pancho English MD Frequent falls (Primary Dx) 01/15/2025 1:45 PM LAUNDRY MACHINE OPERATOR [facility] [address] [place], [address] Pancho English MD 01/15/2025 Travel 01/12/2025 12:00 PM LAUNDRY MACHINE OPERATOR [facility] [address] [place] [address] Pancho English MD Right shoulder pain, unspecified chronicity (Primary Dx) 01/12/2025 Refill [facility] [address] [place] [address] Pancho English MD Medication Refill 01/12/2025 Orders Only [address] [place] [address] Pancho English MD Right shoulder pain, unspecified chronicity (Primary Dx) 01/12/2025 Plan of Care Documentation [facility] [address] [place] [address] 01/12/[address] [place] [address] Pancho English MD 01/12/2025 Travel 01/08/2025 Orders Only [address] [place] [address] Pancho English MD 01/06/2025 [facility] Quality Management [address] [place] [address], [place] [address] Bernadette Bedolla RN 01/06/2025 Orders Only [facility] Management [address] [place] [address], [place] [address] Pacnho English MD Right shoulder pain, unspecified chronicity (Primary Dx) 12/24/[address] [place] [address] Pancho English MD Medication Refill 12/08/2024 [facility] Management [address] [place] [address], [place] [address] Bernadette Bedolla, SULY Routine health maintenance (Primary Dx) 12/04/2024 Orders Only [facility] [address] [place] [address], [place] [address] ProviderTwin MD 12/02/2024 9:30 AM CDT Office Visit [address] [place] [address] Pancho English MD Essential hypertension (Primary Dx); Type 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 disease, without long-term current use of insulin, unspecified whether stage 3a or 3b CKD (HCC Code); Atrial fibrillation with RVR (HCC Code); Bilateral chronic serous otitis media; Nontraumatic complete tear of right rotator cuff; Primary localized osteoarthrosis of right shoulder region; Primary osteoarthritis of right shoulder 11/19/[address], [address] Pancho English MD 11/13/2024 10:45 AM CDT [facility] [address] [facility] [address] [place], [phone] Chris Read FNP from Last 3 Months Immunizations Immunization Administration Dates Next Due Fluzone High-dose Influenza Vaccine 65+ Y/o 12/26/2022,02/13/2022,03/10/2021,03/10,03/10/2021,10/30/2019,12/07/2017 Moderna SARS-CoV-2 Vaccination 05/12/2021,2021 PPD Test 06/17/2018 Pneumococcal Polysaccharide Vaccine 23 Valent 12/06/2016 Pneumococcal conjugate vacci ne, 13 valent, for IM use 07/13/2015 Family History * Patient is adopted Medical History Relation Comments No Known Problems Brother No Known Problems Daughter 1 No Known Problems Daughter 2 No Known Problems Daughter 3 No Known Problems Daughter 4 No Known Problems Father No Known Problems Maternal Aunt No Known Problems Maternal Grandfather No Known Problems Maternal Grandmother No Known Problems Maternal Uncle Cataracts Mother Diabetes Mother Glaucoma Mother Heart disease Mother Hypertension Mother No Known Problems Other No Known Problems Paternal Aunt No Known Problems Paternal Grandfather No Known Problems Paternal Grandmother No Known Problems Paternal Uncle Cancer Sister 1 Diabetes Sister 1 Heart attack Sister 1 Heart disease Sister 1 Hypertension Sister 1 Diabetes Sister 2 Heart disease Sister 2 Hypertension Sister 2 Diabetes Sister 3 Heart disease Sister 3 Hypertension Sister 3 Diabetes Sister 4 Heart disease Sister 4 Hypertension Sister 4 Diabetes Sister 5 Heart disease Sister 5 Hypertension Sister 5 Amblyopia Neg Hx Blindness Neg Hx Macular degen Neg Hx Retinal detachment Neg Hx Strabismus Neg Hx Stroke Neg Hx Thyroid disease Neg Hx Relation Status Comments Brother Daughter 1 Alive Daughter 2 Alive Daughter 3 Alive Daughter 4 Alive Father Maternal Aunt Maternal Grandfather Maternal Grandmother Maternal Uncle Mother Other Paternal Aunt Paternal Grandfather Paternal Grandmother Paternal Uncle Sister 1 Sister 2 Sister 3 Sister 4 Sister 5 Social History Tobacco Use Types Packs/Day Years Used Date Smoking Tobacco: Former Cigarettes Q uit: 1992 Pipe Passive Smoke Exposure: Never Smokeless Tobacco: Former Chew Quit: 1992 Tobacco Cessation:Counseling Given: No Alcohol Use Standard Drinks/Week Comments No 0 (1 standard drink = 0.6 oz pur e alcohol) B1300 Health Literacy Answer Date Recor ded How often do you need to hav e someone help you when you read instructions, pamphlets, or other written material from your doctor or pharmacy? Never 06/30/2024 [facility] Utilities Answer Date Recorded In the past 12 months has e [employer], gas, oil, or water [employer] threatened to shut off services in your [...] and Family Not on file 06/30/2024 Attends Hinduism Services Not on file 06/30 Do you belong to any clubs o r organizations such as anabaptist groups, unions, fraternal or athletic groups, or [...] Recorded Patient Health Questionnaire-[address] [facility] - Occupational Stress [...] money to buy more. Never true 07/01/19 25 Within the past 12 months, t [...] any time in the past 12 m [facility], were you homeless or living in a fdc (including now)? No 06/30/2024 [facility] - Interpersonal [...] money to get more. Never true 2024 [facility] Utilities Answer Date Recorded In the past 12 months has th e electric, gas, oil, or water company threatened to shut off services in your home? No 2024 [facility] - Inadequate Housing Answer Date Re corded What is your living situation today? I have a [facility] place to live [address] you li ve. Do you have problems with any of the following? None of the above 2024 [facility] - Transportation Answer Date Record ed In the past 12 months, has l ack of reliable transportation kept you from medical appointments, meetings, work or from getting things needed for daily living? No 2024 [facility] - Personal Safety Answer Date Recor ded How often does anyone, inclu ding family and friends, physically hurt you? Never 2024 How often does anyone, inclu ding family and friends, insult or talk down to you? Never 2024 How often does anyone, inclu ding family and friends, threaten you with harm? Never 2024 How often does anyone, inclu ding family and friends, scream or curse at you? Never 2024 [facility] - Financial Strain Answer Date Benito rded How hard is it for you to pa y for the very basics like food, housing, medical care, and heating? Would you say it is: Not hard at all 2024 [facility] - Employment Answer Date Recorded Do you want help finding or keeping work or a job? I do not need or want help 2024 [facility] - Social Connections Answer Date Re corded If for any reason you need h elp with day-to-day activities such as bathing, preparing meals, shopping, managing finances, etc., do you get the help you need? I don't need any help 2024 How often do you feel lonely or isolated from those around you? Never 2024 [facility] - Education Answer Date Recorded Do you speak a language other than [place] at [facility]? No 2024 Do you want help with school or training? For example, starting or completing job training or getting a high school diploma, GED or equivalent. No 2024 [facility] - Physical Activity Answer Date Rec [...] on one of those days? 0 2024 [facility] - Substance Use Answer Date Recorde [...] you used il legal drugs? Never 2024 [facility] - Mental Health Answer Date Recorde [...] stress these days? 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 Gender Identity Not on file Sexual Orientation Not on file Last Filed Vital Signs Vital Sign Reading Time Taken Comments Blood Pressure 134/63 12/02/2024 9:37 AM CDT Pulse 65 12/02/2024 9:37 AM CDT Temperature 36.6 C (97.8 F) 12/02/2024 9:35 AM CDT Respiratory Rate 18 12/02/2024 9:35 AM CDT Oxygen Saturation 97% 12/02/2024 9:35 AM CDT Inhaled Oxygen Concentration - - Weight 81.5 kg (179 lb 9.6 oz) 12/02/2024 9:35 A M CDT Height 167.6 cm (5' 6 ) 12/02/2024 9:35 AM CDT Body Mass Index 28.99 12/02/2024 9:35 AM CDT Plan of Treatment Upcoming Encounters Date Type Department Care Team (Late st Contact Info) Description 02/09/2025 11:00 AM LAUNDRY MACHINE OPERATOR Office Visit [facility] Urology [address] [place] [address] 1st [place] [address] Sha Briggs MD [address] [place] [address], [place] [address] 02/25/2025 2:00 PM LAUNDRY MACHINE OPERATOR Office Visit [facility] & V[facility] [address] [place] [address] Fran Prajapati MD [address] [place], [place] [address] [place] [address] 02/27/2025 10:00 AM LAUNDRY MACHINE OPERATOR Office Visit [address] [place] [phone] Pancho English MD [address] [place] [address], [place] [phone] 05/13/2025 3:10 PM LAUNDRY MACHINE OPERATOR [facility] [address] [place] [phone] Chris Read FNP [address] [place] [address] Health Maintenance Due Date Last Done Comments ZOSTER VACCINE AGE 50 AND OVER (1 of 2) 09/04/1993 Adult RSV Vaccine Age 60 and older (1 - 1-dose 75+ series) 09/04/2018 INFLUENZA VACCINE 10/10/2024 12/26/2022, , 03/10/2021, Additional history exists COVID-19 Vaccine (2024- season) 2024 05/12/2021, 04/14/2021 DIABETES MELLITUS YEARLY MICROALBUMIN 12/02/2025 12/02/2024, 06/24/2024, 03/26/2024, Additional history exists DIABETIC EYE EXAM 11/24/2026 11/24/2024, , 01/16/2023, Additional history exists ADULT TETANUS VACCINE (2) 12/11/2026 12/11/2016 (Dec lined) Adult Pneumococcal Age 50 and Older Completed 12/06/2016, 07/13/2015 Annual 360 Visit Completed 03/26/2024, 04/2023, 05/16/2022, Additional history exists DIABETES MELLITUS YEARLY SERUM CREATININE Discontinued 09/01/2024, 09/01/2024, 06/28/2024, Additional history exists Meningococcal ACWY Aged Out No longer eligible based on patient's age to complete this topic Meningococcal B Aged Out No longer el igible based on patient's age to complete this topic Goals Goal Patient Goal Type Associated Problems [...] 9:38 AM CDT) No Argentina Escamilla RN Medical Devices Implanted Type Area Resource Efficiency Manager Device Identifier Shelf Expiration Date Model / Serial / Lot German Implanted:Qty: 1 on 02/13/2017 by Rose Max MD at [facility] Intraocular lens Right: Eye 07/14/2018 [id number] / [id number] / Iol Lens - Staar - [id number] Implanted:Qty: 1 on 02/28/2017 by Rose Max MD at [facility] Intraocular lens Left: Eye 11/09/2018 [id number] / [id number] / Procedures Procedure Name Priority Date/Time Associated Diagnosis Comments MICROALBUMIN/CREAT RATIO, URINE (SPOT) Routine 12/02/2024 9:39 AM CDT Type 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 disease, without long-term current use of insulin, unspecified whether stage 3a or 3b CKD (HCC Code) POCT GLYCOSYLATED HEMOGLOBIN (HGB A1C) Routine 12/02/2024 9:38 AM CDT Type 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 disease, without long-term current use of insulin, unspecified whether stage 3a or 3b CKD (HCC Code) DIABETIC EYE EXAM - EXTERNAL Routine 11/24/2024 BASIC METABOLIC PANEL Routine 09/01/2024 9:09 AM CDT Acute congestive heart failure, unspecified heart failure type (HCC Code) from Last 3 Months or Most Recently Relevant to Health Maintenance Results * Microalbumin/creat ratio, urine (spot) (12/02/2024 9:39 AM CDT) Creatinine, Urine 62.3 mg/dL 12/02/2024 4:17 PM CDT HBC Microalbumin, Urine <0.5 mg/dL 12/02/2024 4:17 PM CDT HBC Urine 12/02/2024 9:39 AM CDT 12/02/2024 9:39 AM CDT Narrative HBC - 12/02/2024 4:17 PM CDT Unable to perform calculations, urine microalbumin below instrument sensitivity Pancho English MD URINE ORDERABLES Final Resu lt [facility] [address] [place] [address], [place] * POCT glycosylated hemoglobin (Hb A1C) (12/02/2024 9:38 AM CDT) Hemoglobin A1C 5.9 4.2 - 6.5 % [facility] Blood, Capillary 12/02/2024 9:38 AM CDT Pancho English MD POINT OF CARE TEST ORDERABL ES Final Result Performing Organization Address City/[facility]/ZIP Co de Phone Number [facility] [address] [place] [address] * Diabetic Eye Exam - External (11/24/2024) Diabetic Retinopathy No Hypertensive Retinopathy No Anatomical Region Laterality Modality Radiographic Isabelle ging Historical Provider OPHTHALMOLOGY SERVICES OR DERABLES Edited Result - Final * (ABNORMAL) Basic metabolic panel (09/01/2024 9:09 AM CDT) Sodium 145 135 - 145 mEq/L 09/01/2024 4:50 PM CDT HBC Potassium 4.5 3.4 - 5.1 mEq/L 09/01/2024 4:50 PM CDT HBC Chloride 108 101 - 112 mEq/L 09/01/2024 4:50 PM CDT HBC CO2 27 18 - 32 mEq/L 09/01/2024 4:50 PM CDT HBC BUN 32(H) 6 - 20 mg/dL 09/01/2024 4:50 PM CDT HBC Creatinine 1.57(H) 0.60 - 1.20 mg/dL 09/01/2024 4:50 PM CDT HBC Calcium 8.4(L) 8.5 - 10.5 mg/dL 09/01/2024 4:50 PM CDT HBC Glucose 106 74 - 106 mg/dL 09/01/2024 4:50 PM CDT HBC Osmolality Calc 296(H) 275 - 295 mOsml/kg 09/01/2024 4:50 PM CDT HBC Anion Gap 10 3 - 15 mEq/L 09/01/2024 4:50 PM CDT HBC eGFR 44(L) >=60 mls/min/1. 73m2 09/01/2024 4:50 PM CDT HBC Blood Venipuncture / Unknown 09/01/2024 9:09 AM CDT 09/01/2024 9:09 AM CDT Lisa KERR LAB BLOOD ORDERABLES Rose l Result [facility] [address] [place] [address], from Last 3 Months or Most Recently Relevant to Health Maintenance Insurance [employer] PREFERRED MEDICARE ADVANTAGE [facility] [employer] Advance Directives * Full Code (Latest Code Status on File) Date Activated Date Inactivated Comments 05/05/2022 8:59 AM 05/06/2022 5:36 PM * Full Code Date Activated Date Inactivated Comments 08/24/2021 11:44 PM 08/25/2021 11:00 PM * Full Code Date Activated Date Inactivated Comments 08/04/2020 10:25 AM 08/12/2020 3:11 PM * Full Code Date Activated Date Inactivated Comments 07/29/2020 4:04 PM 07/30/2020 1:48 PM * Full Code Date Activated Date Inactivated Comments 06/08/2020 8:06 PM 06/11/2020 5:05 PM Care Teams Dowel Inserting Machine Operator Relationship Specialty Start Date End Date Pancho English MD [address] [place] [address], [place] [address] PCP - General Family Medicine 06/13/22 Bernadette Bedolla, RN [address] [address] Internal Control Specialist 06/30/24
--- OUTSIDE RECORDS SUMMARY | 2025-01-30 18:34 | XMS_ITS | Encounter Summary ---
Author Organization [facility] Address [address] [address] Care Team Providers Care Replenishment Associate Name Role Phone Taurus Jerry MD Unavailable [phone] Mark Chery MD Primary Care Provider [phone] Celestina Higgins RN Unavailable Unavaila Lorena Crenshaw [facility] Unavailable [phone] Merlene Wallis RN Unavailable Unavailable Milo Olson RN Unavailable Unavailable Osiris Mota RN Unavailable [phone] Pancho English MD Primary Care Provider [phone] Mark Chery MD Unavailable [phone] Mark Chery MD Unavailable [phone] Bernadette Bedolla RN Unavailable [phone] Encounter Details Date Type Department Care Team (Latest Contact Info) Description 09/02/2013 Scanned Document EXTERNAL Scan, Clinical [address] [facility] [place] [address] Social History Tobacco Use Types Packs/Day Years Used Date Smoking Tobacco: Former Smokeless Tobacco: Current Chew Alcohol Use Standard Drinks/Week Comments No 0 (1 standard drink = 0.6 oz pur e alcohol) Sex and Gender Information Value Date Recorded Sex Assigned at Not on file Legal Sex Male 6:30 AM FUND DIRECTOR Gender Identity Not on file Sexual Orientation Not on file documented as of this encounter Plan of Treatment Upcoming Encounters Date Type Department Care Team (Late st Contact Info) Description 02/09/2025 11:00 AM FUND DIRECTOR Office Visit [facility] Urology [address] [place] [address] 1st [place] [address] Sha Briggs MD [address] [place] [address], [place] [address] 02/25/2025 2:00 PM FUND DIRECTOR Office Visit Heart & Vascular [address] [place] [address], [place] [address] Fran Prajapati MD [address] [place] [address], [place] [phone] 02/27/2025 10:00 AM FUND DIRECTOR Office Visit [address] [place] [phone] Pancho English MD [address] [place] [address], [place] [address] 05/13/2025 3:10 PM FUND DIRECTOR [facility] Visit [facility] [address] [place] [address] Chris Read FNP [address] [place] [address] documented as of this encounter Visit Diagnoses Not on filedocumented in this encounter Additional Health Concerns Infection Onset Date Last Indicated Resolved Time COVID-19 pending 09/19/2019 09/19/2019 09/21/2019 6:36 AM CDT COVID-19 pending 10/21/2019 10/21/2019 10/22/2019 12:10 PM CDT Mycoplasma pending 10/22/2019 10/22/2019 0 6:05 PM CDT COVID-19 pending 03/08/2020 03/08/2020 03/08/2020 11:04 AM FUND DIRECTOR COVID-19 pending 03/08/2020 03/08/2020 03/08/2020 2:29 PM FUND DIRECTOR COVID-19/FLU/RSV pending 05/08/2020 05/08/2020 10:52 AM FUND DIRECTOR Mycoplasma pending 05/08/2020 05/08/2020 1:00 PM FUND DIRECTOR documented as of this encounter Care Teams Replenishment Associate Relationship Specialty Start Date End Date Mark Chery MD [address] [place] [address], [place] [address] PCP - General Family Medicine 12/06/16 06/12/22 Pancho English MD [address] [place] [address], [place] [address] PCP - General Family Medicine 06/13/22 Mark Chery MD [address] [place] [address], [place] [address] PCP - Attributed Provider-Medicare ACO 09/08/17 10/16/17 Mark Chery MD [address] [place] [address], [place] [address] PCP - Attributed Provider-Medicare ACO 12/09/17 03/25/18 Taurus Jerry MD Cardiology 05/06/14 05/20/20 Celestina Higgins, RN [address] [place] [address] CCM Electronics Mechanic Apprentice 03/21/17 05/09/17 Lorena Ariza LMSW [address] [place] [address] Laborer Dairy Farm 12/27/17 06/29/24 Merlene Wallis, RN [address] [place] [facility] [place] [address] CCM Electronics Mechanic Apprentice 12/27/17 10/02/18 Milo Olson RN [address] [address] CCM Electronics Mechanic Apprentice 03/14/18 07/05/18 Osiris Mota RN [address] [place] [address], [place] [address] Sas Programmer Remote 08/25/21 09/23/21 Bernadette Bedolla RN [address] [address] Sas Programmer Remote 06/30/24 documented as of this encounter
--- OUTSIDE RECORDS SUMMARY | 2025-01-30 18:34 | XMS_ITS | Data Portability ---
Author Organization [place] [facility] [employer] [facility] Address [address] [place] [id number] Care Team Providers Care Fight Manager Name Role Phone REI RICHARDS Primary Care Provider [phone] Assessment Encounter Date Assessment Date Assessment LastModified by Organization Details LastModified Time 04/09/2023 04/09/2023 I spent minutes [id number] with the patient. Over half of the time was spent in discussion of the diagnosis, the treatment plan including risks, benefits and alternatives, and the importance of adherence. Consents in [employer]. Patient educated on program and services. Follow up as below, patient educated that if a need arises they can contact [facility] 02/10. Direct provider number provided to patient. Next Primary Care appointment is on Next Nephrology appointment is on Return to Clinic- On: . After visit summary will be faxed to active providers listed, and uploaded to [employer] by Patient Dyehouse Worker (PSS) and for review and communication to [facility] Assigned Care Managers and Social Workers. Patient to follow up on regular ro with Managed Care [facility] Metal Forger'S Assistant and Ribbing Machine Operator. [email or web address] Not available 04/09/2023 15:17:34 11/08/2023 11/08/2023 I spent 40 minutes [id number] with the patient. Over half of the time was spent in discussion of the diagnosis, the treatment plan including risks, benefits and alternatives, and the importance of adherence. Patient evaluated for a renal complication related to diabetes. Patient educated on risk for kidney disease and need to control blood sugar levels to prevent injury. Discussed follow up and orders indicated below. [email or web address] Not available 11/13/2023 14:20:12 08/18/2024 08/18/2024 I spent 60 minutes telephonic with the patient. Over half of the time was spent in discussion of the diagnosis, the treatment plan including risks, benefits and alternatives, and the importance of adherence. Next Primary Care appointment is on 10/31/2024 [employer] [facility] Visit Scheduled for 12/15/24 Self Management Activities Patient understands the importance of and agrees to the following Self Management Activities at today's visit: Blood Pressure Log. Patient agrees to perform Daily. Not available 08/18/2024 10:02:39 Plan of Treatment Reminders Order Date Submit Date Provider Last Modified By Organization Details Last Modified Time Details Appointments None record ed. Lab None record ed. Referral None record ed. Procedures None record ed. Surgeries None record ed. Imaging None record ed. Medication Orders None record ed. Patient TargetsNo targets recorded. Patient Instructions Encounter Date Encounter Id Patient Instructions Last Modified By Organization Details Last Modified Time 04/09/2023 [id number] You were seen to day for a [facility] [employer] Comprehensive Inventory Assessment as recommended by your health plan. You are recommended to: 1. Have routine physical activity of at least 30 minutes 5 times per week. 2. Eat a healthy diet low in sodium and saturated fats 3. Smoking cessation, if you are a smoker. This includes e-cigarettes and vaping as well. 4. Obtain your annual Influenza vaccination as well as Pneumonia vaccination if you have not had one since age 63. 5. Obtain an annual diabetic foot and eye exam, if you have Diabetes. 6. Take your daily medications as prescribed 7. Follow up with your Primary Care Provider for your preventative cancer screenings, including colorectal cancer screening, mammogram for women, prostate exam for men, and Lung CT for smokers. 8. It is important to know that for those patients over the age of 60 with certain chronic conditions, that you are at risk for adverse outcomes from COVID-19. 9. It is important to know that for patients with CKD Stage 4 and one or more of the following chronic conditions, then you are most at risk for adverse outcomes: Hypertension, Diabetes, Hypercholesterolemi a, Obesity, Tobacco use, Proteinuria, Hyperkalemia, Anemia due to renal disease, Volume overload, Hyperphosphatemia, and Secondary hyperparathyroidism . 10. Follow up with your Primary Care Provider as scheduled for continued management of your chronic health conditions. [email or web address] Not available 04/09/2023 15:17:35 11/08/2023 [id number] I, Ema Pavon MD, was not present for the visit. I have reviewed the encounter/chart and below is a summary of my review: Pt is an 78 y/o male with CKD 3a, HTN, T2D, and maybe undiagnosed heart failure. He is currently on appropriate treatment with RASI, SGLT2i, and a statin. His labs are from several months ago and should be updated. We also should obtain labs to assess for albuminuria (urine albumin, urine creatinine, and albumin/creatinine ratio). [email or web address] Not available 11/14/2023 10:13:50 08/18/2024 [id number] Top Three Goals: The Patient agrees to focus on improving the top three health conditions identified on today's LUIS visit, as documented in the Assessment and Plan. Assigned prioritization reflects a collaborative effort, and includes input from the Patient. The patient will work on these conditions with a [facility] RN, who will create patient-specific care goals based on today's visit. The patient will receive a [facility] Plan of Care within 60 days, and follow-up visits with both the RN and LUIS will be scheduled according to the personalized plan of care. Instructions: You had a [employer] Follow Up Visit today, as recommended by your health plan. Here are some important steps to help you stay healthy: 1. Get Moving: Aim for at least 30 minutes of physical activity, 5 days a week. 2. Eat Smart: Focus on a diet low in sodium and saturated fats to keep your heart healthy. 3. Avoid Harmful Habits: Stay away from smoking and limit or avoid alcohol. 4. Keep Vaccinations Current: Make sure your vaccinations are up to date. 5. Take Medications: Remember to take your daily medications as prescribed. 6. Stay on top of Screenings: Keep up with your preventive screening tests to catch any issues early. 7. Track Your Health: Monitor your blood pressure, weight, and other [facility] stats regularly. 8. Follow Up: Keep in touch with your [facility] Team, Primary Care Provider, and any specialists as scheduled to manage your health conditions. Following these recommendations will help you maintain your health and well-being. Not available 08/18/2024 09:44:55 Reason for Referral None Reported. Results Created Date Observation Date Name Description Value Unit Range Abnormal Flag Note LastModifiedBy Organization Detail LastModifiedTime 04/04/19 24 07/19/2022 cardi ac stres s test No observ ation record ed. [email or web address] Not Available 15:17:38 Result Notes None recorded. Problems Name Problem SNOMED Code Status Onset Date Resolution Date Notes Provider Name and Address Organization Details Recorded Time History of malignant neoplasm of prostate 771526928 Active 2023 Jimmie Boggs Sach[place], [employer] [address], [place], [address] , [facility] 10:43:31 Recurrent major depression in full remission 16163113 Active 2023 Jimmie Boggs Sachin, [employer] [address], [place], [address] , [facility] 10:44:49 Mixed hyperlipid emia 766998755 Active 2023 Jimmie Boggs Sachin, [employer] [address], [place], [address] , [facility] 10:48:14 Chronic kidney disease stage 3A 229022954 Active 2024 Jayda Howe NP [address], [place], [address] , [facility] 10:02:08 Essential hypertensi on 58723592 Active 2024 Jadya Howe NP [address], [place], [address] , [facility] 10:02:18 Chronic kidney disease due to type 2 diabetes mellitus 360867530826 Active 2024 Jayda Howe NP [address], [place], [address] , [facility] 10:02:22 Coronary arterioscl erosis 21209479 Active 2024 Jayda Howe NP [address], [place], [address] , [facility] 10:03:32 Congestive heart failure 14696674 Active 2024 Jayda Howe NP [address], [place], [address] , [facility] [employer] 5 10:11:42 Chronic atrial fibrillati on 968855799 Active 2024 Jayda Howe, CARE WORKER [address], [place], [address] , [facility] [employer] 10:11:42 Problem Notes None recorded. Medical Equipment None Reported. Medications Name Sig Start Date Stop Date Status Note LastModified by Organization Details LastModified Time metformin 500 mg tablet Take 1 tablet twice a day by oral route for 90 days. active Not Available Not Available No t Available doxycycline hyclate 100 mg capsule TAKE 1 CAPSULE BY MOUTH TWICE DAILY FOR 7 DAYS DIRECTED 11/12 completed Not Available Not Available Not Available azithromyci n 250 mg tablet TAKE 2 TABLETS BY MOUTH FOR 1 DAY THEN TAKE 1 TABLET BY MOUTH DAILY FOR 4 DAYS 11/12 completed Not Available Not Available Not Available clopidogrel 75 mg tablet Take 1 tablet every day by oral route for 90 days. active Not Available Not Available No t Available amlodipine 5 mg tablet Take 1 tablet every day by oral route for 90 days. active Not Available Not Available No t Available sulfamethox azole 800 mg-trimetho prim 160 mg tablet TAKE 1 TABLET BY MOUTH TWICE DAILY FOR 10 DAYS 08/18 completed Not Available Not Available Not Available tramadol 50 mg tablet TAKE 1 TABLET BY MOUTH EVERY 6 HOURS NEEDED active Not Available Not Available No t Available guaifenesin 100 mg/5 mL oral liquid TAKE 10 ML BY MOUTH EVERY 4 HOURS NEEDED 11/12 completed Not Available Not Available Not Available citalopram 20 mg tablet Take 1 tablet every day by oral route for 30 days. active Not Available Not Available No t Available erythromyci n 5 mg/gram (0.5 %) eye ointment APPLY THIN LAYER IN LEFT EYE THREE TIMES DAILY FOR 5 DAYS 04/10 completed Not Available Not Available Not Available nitroglycer in 0.[address] 1 TABLET (0.4 MG) BY SUBLINGUA L ROUTE AT 1ST SIGN OF ATTACK; MAY REPEAT EVERY 5 MINUTES UP TO 3 TABS; IF NO RELIEF SEEK MEDICAL HELP active Not Available Not Available No t Available furosemide 20 mg tablet Take 1 tablet every day by oral route for 90 days. active Not Available Not Available No t Available metoprolol succinate ER 25 mg tablet,exte nded release 24 hr Take 1 tablet every day by oral route for 90 days. active Not Available Not Available No t Available fluticasone propionate 50 mcg/actuati on nasal spray,suspe nsion SHAKE LIQUID AND USE 1 SPRAY IN EACH NOSTRIL DAILY active Not Available Not Available No t Available rosuvastati n 40 mg tablet Take 1 tablet every day by oral route for 90 days. active Not Available Not Available No t Available Alcohol Prep Pads USE TO TEST SUGAR TWICE DAILY active Not Available Not Available No t Available omega-3 acid ethyl esters 1 gram capsule Take 2 capsules twice a day by oral route. 08/18 completed Not Available Not Available Not Available aspirin 81mg one tab daily active Not Available Not Available No t Available Micro Thin Lancets 33 gauge USE TO TEST SUGAR TWICE DAILY active Not Available Not Available No t Available Jardiance 10 mg tablet Take 1 tablet every day by oral route. 11/12 completed Not Available Not Available Not Available Jardiance 25 mg tablet Take 1 tablet every day by oral route for 90 days. active Not Available Not Available No t Available True Metrix Glucose Meter USE TO TEST SUGAR TWICE DAILY active Not Available Not Available No t Available Entresto 49 mg-51 mg tablet TAKE 1 TABLET BY MOUTH TWICE DAILY active Not Available Not Available No t Available Vitals Date Recorded Body height Heart rate Body mass index (BMI) Body weight Systolic And Diastolic Provider Name and Address Organization Details Last Updated DateTime 04/09/2023 167.64 cm 66 /min 29.7 kg/m2 29083 g 117/68 mm[Hg] Jimmie Stephenson, ROBER [address], [place], [address] , [facility] [employer] 04/10/2023 10:32:13 Date Recorded Body height Body mass index (BMI) Body weight Heart rate Systolic And Diastolic Provider Name and Address Organization Details Last Updated DateTime 08/18/2024 167.64 cm 27.8 kg/m2 69393.89 g 97 /min 114/58 mm[Hg] Jayda Howe, LINNETTE [address], [place], [address], [facility] [employer] 09:45:49 Date Recorded Body height Body mass index (BMI) Body weight Heart rate Systolic And Diastolic Provider Name and Address Organization Details Last Updated DateTime 11/08/2023 167.64 cm 28.9 kg/m2 18557.03 g 88 /min 138/80 mm[Hg] Jimmie Stephenson, [address], [place], [address] , [place] - [facility] [employer] 11/13/2023 12:54:21 Social History Question Answer Notes LastModified by Organizat ion Details LastModified Time In A Normal Week, How Many Times Do You Engage In Vjcrxpau-rm-stua nuous Physical Activity For At Least 30 Minutes At A Time? Moderate Physical Activity Is Any Activity That Causes Speaking To Take A Little More Effort Than Usual, But Doesn t Leave You Gasping For Air, And Would Still Allow You To Carry On A Conversation. None [email or web address] Information not available 04/10/2023 What Is Your Current Smoking Status? Former Smoker [email or web address] Information not available 04/10/2023 In A Normal Week How Many Days Do You Consume Alcohol? None [email or web address] Information not available 04/10/2023 Describe Your Level Of Cognitive Function; Considering Your Ability To Communicate And Understand Instructions And Ability To Process Information About Your Current Health Conditions? Alert/oriented And Able To Focus And Shift Attention/compr ehends And Recalls Direction Independently. Information not available 04/10/2023 Do You Require Assistance Walking? No - Patient Is Fully Independent And Requires No Assistance Walking. [email or web address] Information not available 04/10/2023 Do You Require Assistance Transferring? No - Patient Is Fully Independent And Requires No Assistance Transferring. [email or web address] Information not available 04/10/2023 Do You Require Assistance With Feeding? No - Patient Is Fully Independent And Requires No Assistance With Feeding. [email or web address] Information not available 04/10/2023 Do You Require Assistance With Bathing? No - Patient Is Fully Independent And Requires No Assistance With Bathing. [email or web address] Information not available 04/10/2023 Do You Require Assistance Grooming? No - Patient Is Fully Independent And Requires No Assistance Grooming. [email or web address] Information not available 04/10/2023 Do You Require Assistance Getting Dressed? No - Patient Is Fully Independent And Requires No Assistance Getting Dressed. [email or web address] Information not available 04/10/2023 Do You Require Assistance Toileting? No - Patient Is Fully Independent And Requires No Assistance Toileting. [email or web address] Information not available 04/10/2023 Are You Incontinent Of The Following? Bladder [email or web address] Information not available 04/10/2023 Sex: Unknown Functional Status Question Answer Note LastModified by Organizat ion Details LastModified Time Do you use any illicit or recreational drugs? No Information not available 04/10/2023 Do you or have you ever used any other forms of tobacco or nicotine? No [email or web address] Information not available 04/10/2023 Are you currently employed? No [email or web address] Information not available 04/10/2023 Mental Status Question Answer Note LastModified by Organization D etails LastModified Time Do you have difficulty concentrating, remembering or making decisions? No [email or web address] Information no t available 04/10/2023 Family History Nothing Reported Notes:Cataracts Mother Diabe corky Mother Glaucoma Mother Heart disease Mother Hypertension Mother Medical History No medical history recorded. Past Encounters Encounter ID Performer Location Encounter Start Date Encounter Closed Date Diagnosis/Indication Diagnosis SNOMED-CT Code Diagnosis ICD10 Code Diagnosis IMO Codes Diagnosis Note [id number] [facility] [address] [facility] [address] [place] [address] 04/09/2023 15:15:25 04/16/2023 16:34:56 Chronic kidney disease stage 3B 320759016 N18.32 dialysis thoughts: have not thought about dialysis yet egfr 39 Reviewed home modalities and conservati ve kidney management with patient and all questions answered Reviewed with the patient the most recent renal function and current CKD stage. Discussed general principles to prevent further CKD progressio n including: blood pressure & blood sugar control, smoking cessation, eating foods low in salt and animal protein & avoiding NSAID medication s. recommende d and discussed the importance of regular medical follow-up as kidney function can often decline significan tly without symptoms. Stressed the importance of informing all medical providers of their impaired renal function as medication adjustment s may be necessary. 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 -Be aware of the warning symptoms of a blood clot - obtain medical help immediatel y if you suspect one (see above for symptoms). -Avoid lack of fluid in the body (dehydrati on) by drinking adequate amounts of fluid. Dehydratio n can contribute to blood clots forming. -Keep active and avoid being immobile for long periods - immobility helps cause blood clots in the legs (DVTs). -Caution with medication : some medication s increase the risk of a blood clot. For example, the combined oral contracept leander (DAMIR) pill or patch, and tablet forms of hormone replacemen t therapy (HRT). You may be advised to avoid certain medication s, or to change to one which does not affect blood clotting. -Keep to a healthy weight - being overweight or obese increases the risk of blood clots in legs. -To keep blood vessels healthy (arteries in particular ), do not smoke. This is important if you have thrombophi sulaiman of a type that can cause blood clots in arteries, as smoking also promotes arterial blood clots.Cathi ent is currently stable. Atrial fibrillation 494 6004 I48.20 -Recommend ations: Don't Ignore the Warning Signs, Control Diabetes and Blood Pressure, Eat a Heart-Heal thy Diet, Quit Smoking, Take Blood Thinners as Prescribed , Limit Alcohol and Stimulants , Avoid Excess Caffeine, Stay Active. -Follow up with your Cardiologi st. Coronary atherosclerosis 023143768 I25.118 -recommend ation onnot smoking (if applies) is one of the best ways to lower the risk of atheroscle rosis complicati ons-Exerci se most days of the week. Regular exercise improves blood flow, lowers blood pressure, and reduces the risk of conditions that increase the risk of atheroscle rosis and heart disease Chronic ki dney disease due to type 2 diabetes mellitus 2275047831 08 E11.22 N18.32 HbA1c 6.8Stresse d the importance of regular blood sugar monitoring , medication adherence, physical activity, and avoidance of foods with high sugar or carbohydra te content. Discussed increased risk of hypoglycem ia given impaired kidney function. Educated patient regarding signs and symptoms of hypoglycem ia and appropriat e response to both symptomati c and asymptomat ic hypoglycem ia. Managed by PCP/Encour aged daily BG monitoring and logging, as well as diabetic diet and exercise MEDICATION : metformin Hypertensi ve heart and renal disease with (congestive) heart failure 182400115 I13.0 - EF % unknown - Medication s: furosemide - Call your provider if your weight goes up by more than 3 pounds (about 1.5 kilograms) in a day or 5 pounds (2 kilograms) in a week. Also call your provider if you lose a lot of weight. - Track blood pressure with a daily log - Low sodium diet - If you shoes or clothing becomes tight this could be a sign of edema. - If you become short of breathe at night or have to sleep on multiple pillows or in a recliner let call your doctor. - Recommenda tions: start simple exercise regimen as discussed History of malignant neoplasm of prostate 196913996 Z85.46 patient education/ recommenda tion and treatment options: -Lifestyle changes Behavioral modificati ons and therapies may be helpful, particular ly as an adjunct to medication . Lifestyle changes include avoiding fluids prior to bedtime or before going out as well as reducing consumptio n of mild diuretics such as caffeine and alcohol. Pelvic floor muscle training, including the use of biofeedbac k, may be particular ly helpful for patients with urgency symptoms.. This includes: Stop drinking fluids a few hours before bedtime or going out.-Avoid or drink less fluids that can make you go more often, like caffeine and alcohol.Do uble void. This means that after you empty your bladder, you wait a moment and try to go again. --Do not strain or push to empty. Patient is stable Mixed hyperlipidemia 267 927601 E78.2 Current Medication s: rosuvastat in -Recommend ations: DASH Diet, Limit sodium 2g daily, Weight Reduction if applicable , 30min/5 days a week physical activity, limit alcohol consumptio n Recurrent major depression in full remission 36184747 F33.42 Patient educated on importance of compliance of pharmacoth erapy treatment and also participat ing in psychother apy treatment as combinatio n treatment is more effect than one treatment alone. Patient also educated on importance of relaxation , positive activities , and exercise as an outlet.Heidy riveront educated on common adverse effects of antidepres juan r medication s including diarrhea, nausea and vomiting, sexual dysfunctio n, somnolence , and weight gain.Briana nt educated on suicide hotline number 014 Essential hypertension 20846421 I10 patient taking amlodipine You have been diagnosed with hypertensi on, which means your blood pressures are too high. Having hypertensi on can increase your risk of heart attack and stroke and worsen kidney function. Everyone s blood pressure should be less than 140/90. Some patients with chronic kidney disease may have a lower blood pressure goal of 120/80. Your goal blood pressure is less than 140/90____ __. We have also asked you to keep a blood pressure log and let us know within the next month to see how things are going. In addition, we have discussed strategies to lower blood pressure including exercise, weight loss, and a low sodium diet. Certain over-the-c ounter medication s such as nonsteroid al anti-infla mmatory agents (NSAIDs, i.e. ibuprofen, Advil and Aleve) and cough/cold medication s that contain pseudoephe drine, ephedrine, phenylephr ine, naphazolin e and oxymetazol ine can contribute to high blood pressures and should be avoided. Acetaminop hen (Tylenol) and Coricidin HBP are safe, over-the-c ounter medication s to take for people with hypertensi on. Stable angina 695317018 I20.89 StableMedi cation: nitroglyce rin as directed No recent angina episodes [id number] ROBER Mata [facility] [address] [place] [address] 11/08/2023 14:48:57 03/21/2024 15:01:30 Chronic kidney disease due to hypertension [id number] 73786 N18.32 Medication : amlodipine and furosemide as directed-B P 138/80 11-08-23-BP 137/81 05-04-23-Do es not take BP daily-Admi ts to having lower extremity edema and some SOB-Denies any dizziness or chest pain You have been diagnosed with hypertensi on, which means your blood pressures are too high. Having hypertensi on can increase your risk of heart attack and stroke and worsen kidney function. Everyone s blood pressure should be less than 140/90. Some patients with chronic kidney disease may have a lower blood pressure goal of 120/80. Your goal blood pressure is less than 140/90____ __. We have also asked you to keep a blood pressure log and let us know within the next month to see how things are going. In addition, we have discussed strategies to lower blood pressure including exercise, weight loss, and a low sodium diet. Certain over-the-c ounter medication s such as nonsteroid al anti-infla mmatory agents (NSAIDs, i.e. ibuprofen, Advil and Aleve) and cough/cold medication s that contain pseudoephe drine, ephedrine, phenylephr ine, naphazolin e and oxymetazol ine can contribute to high blood pressures and should be avoided. Acetaminop hen (Tylenol) and Coricidin HBP are safe, over-the-c ounter medication s to take for people with hypertensi on. Chronic ki dney disease due to type 2 diabetes mellitus [id number] 08 E11.22 HbA1c 6.7 2-2-24- Hba1c 7 12-26-22-n o complaints of excessive thirst, significan t weight gain, vision changes-do es not take daily blood sugars daily Stressed the importance of regular blood sugar monitoring , medication adherence, physical activity, and avoidance of foods with high sugar or carbohydra te content. Discussed increased risk of hypoglycem ia given impaired kidney function. Educated patient regarding signs and symptoms of hypoglycem ia and appropriat e response to both symptomati c and asymptomat ic hypoglycem ia. Managed by PCP/Encour aged daily BG monitoring and logging, as well as diabetic diet and exercise MEDICATION : metformin and jardiance as directed Chronic ki dney disease stage 3A [id number] N18.31 dialysis thoughts: Does not know what he will do about dialysisEG FR 50 2-2-24EGFR 39 12-26-22-D enies any foamy urine, vomiting, fatigue Reviewed home modalities and conservati ve kidney management with patient and all questions answered Reviewed with the patient the most recent renal function and current CKD stage. Discussed general principles to prevent further CKD progressio n including: blood pressure & blood sugar control, smoking cessation, eating foods low in salt and animal protein & avoiding NSAID medication s. recommende d and discussed the importance of regular medical follow-up as kidney function can often decline significan tly without symptoms. Stressed the importance of informing all medical providers of their impaired renal function as medication adjustment s may be necessary. [id number] Jayda Howe NP [facility] [address] [facility] [place] [address] 08/18/2024 09:43:31 10/27/2024 15:23:52 Chronic kidney disease stage 3A [id number] N18.31 [id number] Stable- GFR : 5 53CKD Stage 3a01/ 25 49CKD Stage 3a/05/01 24 50CKD Stage 3a12/27/19 23 39CKD Stage 3b12/27/19 23 39 -on SGLT21 and sartan-rep orts that he has been drinking Dr Gipson and encouraged him to reduce/moriah t dark sodas from his diet- Denies symptoms of CKD including fatigue, N/V, loss of appetite, SOB, swelling, pruritis, urinary changes- Discussed causes of renal disease and goal of preventing further kidney damage -Avoid Nephrotoxi c Agents/NSA IDs & radiocontr ast unless emergent-D iet: 0.8-1.2 gm/kg /day Protein, 2 gm/day sodium, plus (possible additions - renal diet w/ potassium and phosphorus restrictio ns) Essential hypertension [id number] I10 20583 Status:rosina perezDamaso agement:am lodipine, valsartan, furosemide , metoprolol Referral:Shivam MALDONADO, cardiology Encouraged patient to monitor blood pressure daily with at home blood pressure machine. Keep blood pressure log. BP goal <140/90 Recommenda tions: DASH Diet, Limit sodium 2g daily, Weight Reduction if applicable , 30min/5 days a week physical activity, limit alcohol consumptio n. Follow low sodium diet, limit caffeine, increase water intake and exercise regularly. You have been diagnosed with hypertensi on, which means your blood pressures are too high. Having hypertensi on can increase your risk of heart attack and stroke and worsen kidney function. Everyone s blood pressure should be less than 140/90. Some patients with chronic kidney disease may have a lower blood pressure goal of 120/80. Your goal blood pressure is less than 140/90. We have also asked/gurjit mmended you to keep a blood pressure log and let us know within the next month to see how things are going. In addition, we have discussed strategies to lower blood pressure including exercise, weight loss, and a low sodium diet. Certain over-the-c ounter medication s such as nonsteroid al anti-infla mmatory agents (NSAIDs, i.e. ibuprofen, Advil and Aleve) and cough/cold medication s that contain pseudoephe drine, ephedrine, phenylephr ine, naphazolin e and oxymetazol ine can contribute to high blood pressures and should be avoided. Acetaminop hen (Tylenol) and Coricidin HBP are safe, over-the-c ounter medication s to take for people with hypertensi on. 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 Stressed the importance of regular blood sugar monitoring , medication adherence, physical activity, and avoidance of foods with high sugar or carbohydra te content. Discussed increased risk of hypoglycem ia given impaired kidney function. Educated patient regarding signs and symptoms of hypoglycem ia and appropriat e response to both symptomati c and asymptomat ic hypoglycem ia. Congestive heart failure [id number] I50.33 - Status of Diagnosis: Stable- Last known LV EF64% on 07/19/2022 Current Heart Failure Medication TherapyBet ablocker:m etoprololA RNi/ARB/AC Ei:valsart anAldoster one inhibitor: Diuretic:f urosemideS GLT2i:empa gliflozin( Jardiance) complaint with [employer] Patient Education- Call your provider if your weight goes up by more than 2 pounds in a day or 5 pounds in a week. Also call your provider if you lose more than 10lbs.- Hold BP medication s if systolic <100 before taking medication s.- Track blood pressure with a daily log- Low sodium diet- If your shoes or clothing becomes tight this could be a sign of edema.- If you become SOB at night and awaken SOB, have to sleep on multiple pillows, and/or sleep in a recliner. Immediatel y let your provider know.- If you have JOSR ensure you are utilizing CPAP, if you are unable to tolerate CPAP ensure you contact your sleep medicine provider. Cardiology Follow up: Annually Dr Sukhi Thomas at ria fibrillation [id number] I48.20 -presence of Watchman device-fol lowed by cardiology -compliant with metoprolol Mixed hyperlipidemia [id number] E78.2 compliant with rosuvastat [facility] ed following low cholestero l diet, cardiovasc ular exercise and weight loss. Avoid eating fatty, fried foods. 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 Discussed potential benefits & side effects. Patient agrees and verbalizes understand ing of adhering to statin use. Educated patient on potential side effects to include: myalgias & muscle weakness necessitat ing stopping the medication and contacting a doctor. Also discussed the importance of avoiding alcohol while taking this medication . Patient denies use of ETOH. Health Concerns Section Related Observation LastModified by Organization Detai ls LastModified Time None Recorded Concern Status LastModified by Organization Details LastModified Time None Recorded Advance Directives Directive None Recorded Payers Insurance Date Sequence Insurance Name Policy Number Policy Zuniga Covered Member ID [id number] Member ID Guarantor Name 08/18/2024 1 [place] - [place] - [place] - [facility] [place] - [place] - [place] - [place] (MEDICARE REPLACEMENT/AD VANTAGE - HMO) Sha Bailey [id number] Sha Bailey 12/11/2024 1 [place]USAN - [employer] [place] - [place] - [facility] - [place] - [place] - [place] - DUAL ELIGIBLE (MEDICARE REPLACEMENT/AD VANTAGE - HMO) Sha Bailey [id number] Sha Bailey 08/18/2024 1 [place] - [place] - [place] - [place] - [place] - [place] - [place]MEDICARE REPLACEMENT/AD VANTAGE - HMO) Sha Bailey [id number] Sha Bailey 08/18/2024 1 [employer] [place] - [place] - [place]MEDICARE REPLAC[place]/AD VANTAGE - HMO) Sha Bailey [id number] Sha Bailey 08/18/2024 1 [employer] [place] - [place] - [place] - [place] - [place] - [place] (MEDICARE REPLAC[place]/AD VANTAGE - HMO) Sha Bailey [id number] Sha Bailey Notes Date Note Type Note Provider Name and Address Organization Details Recorded Time 4 text/htm l Comprehensive Inventory Assessment ([facility])Reported by PatientMental StatusFor speech/motor difficulties, patient reportsno speech difficultiesandno difficulty expressing formulated concepts.Functional AbilityFor instrumental activities of daily living, patient reportsable to grocery shop with limited or no assistance,able to prepare meals with limited or no assistance,able to use the phone with limited or no assistance, andable to do housekeeping independently. For diet and nutrition, patient reportsdiscussed portion controlanddiscussed diet improvement. For fall risk assessment, patient reportsno fall in the past year.Pain AssessmentFor pain intensity and frequency, patient reports(if no pain = 0, has pain = 1-10) 10.Blood and Urine ScreeningsFor egfr (within 12 months), patient reportsdate: 88-20-84zawhdqvtv: 39 (ml/min/1.73). For a1c (within 12 months), patient reportsdate: ___.Preventative Screenings- (Results Must Include MM/DD/YYYY)For bladder control screening, patient reportsduring the last 3 months - have you leaked urine (even a small amount)? yesanddiscussed urinary incontinence, including bladder training exercises, medication and surgery yes.Chronic Condition Management- (Results Must Include MM/DD/YYYY)For depression, patient reportsseverity - phq-9 score: minimal 0-4,episode - recurrent,remission - full,psychotic features - no, andsuicidal ideation - nobut reportsphq-9 complete,depression - yes, andif depression; treatment: medications. For coronary artery disease (cad), patient reportscad - yesandif yes for cad; statin use: yes. For diabetes mellitus (dm), patient reportsdm - yesandif yes for dm; statin use: yes. For congestive heart failure (chf), patient reportschf - yes. For cancer, patient reportscancer - yesandif cancer; type: history of prstate cancer.Medication review for Optimal CKD Management:For 1. korey inhibitors/arbs, patient reportsnot taking. For 2. statin, patient reportstaking. For 4. nsaids, patient reportsnot taking.Patient given education on chronic kidney disease, increasing an exercise regimen, having nutritonal meals daily, and the importance of keeping all follow up appointments along with keeping a blood sugar and blood pressure log if appropriate. Patient seen today for in home assessment. Kazaana Metal Forger'S Assistant is present in home during visit. Patient located at home: [place] Provider located at home office in City/ State: [place] Patient s identity was confirmed with Driving License/ Other mode of identity. Metal Forger'S Assistant present in patients home: Metal Forger'S Assistant took patient vital signs: Reasonable efforts have been made to maintain usual and customary patient confidentiality. Reason for telemedicine visit: The HPI consists of patient reported history and the provider's clinical interpretation. Jimmie Stephenson, [facility] [address], [place], [address], [facility] - [employer] 04/18/2023 13:21:47 4 text/htm l Endocrinology - Diabetes HPIReported by PatientHPI- DiabetesFor nutrition, patient reportspatient does not know how to count carbohydratesandeats a high carbohydrate diet. For type of diabetes, patient reportstype 2 diabetes mellitus. For diabetes therapy, patient reportspatient is compliant with diabetic regimen. For glucose monitoring, patient reportsno recent hypoglycemic episodesandhypoglycemia awareness. For metabolic control and effort, patient reportsimproved diabetes control since last visit. For interval hospitalizations and emergency room visits, patient reportsno diabetic related hospitalizations/er visits in the past year. Treatment Visit HPIReported by PatientCKD:For ckd stage, patient reportsckd stage 3a,last gfr 50,last bun 25,last cr 1.42, andon date 04-13-23. For gfr trend, patient reportsincreasing.Medicatio ns:For 1. korey inhibitors/arbs, patient reportstaking. For 3. statin, patient reportstaking. For 4. nsaids, patient reportsnot taking.Recent Hospitalization/ER visits/Urgent Care Visits:For recent hospitalization/er visits/urgent care visits, patient reportsno. For hospitalization risk, patient reportsnot at risk for hospitalization.Concerning CKD Symptoms:For concerning ckd symptoms, patient reportsedemabut reportsno foamy urine,no anorexia,no vomiting, andno fatigue.Health Literacy:For health literacy, patient reportsaware of severity & stage of kidney diseaseandaware of nsaids risk.Lifestyle Concerns:For lifestyle, patient reportsdiet.Hypertension:Fo r hypertension, patient reportspatient has hypertension. For hypertension: reported range of home bp readings, patient reportsnot checking at home. For concerning symptoms, patient reportsno dizziness,no headache,no vision changes, andno chest pain.Diabetes:For diabetes, patient reportsyes. For glycemic control, patient reportslast a1c result & date 6.7 04-13-23. For a1c trend, patient reportsdecreasing. For concerning symptoms, patient reportsno weight gainandno weight loss.CHF:For chf, patient reportspatient does not have chf. For concerning symptoms, patient reportsno increased weight.78 year old male seen on today for follow up for HTN, DM, and CKD 3A. His last EGFR noted was 50 on 04-13-23 which is a increase from 39 on 12-26-22. His last A1c was 6.7 which is a decrease from 7 on 12-26-22. He takes jardiance and metformin for his DM. His blood pressure on today was 138/80. He does not keep a log of blood sugars or blood pressure readings and rarely takes them. He take rosuvastatin for his hyperlipemia. Metformin and Jardiance for his DM. Furosemide for his HTN. He is aware of his CKD stage but not sure if he understands the severity from speaking with the patient and explaining again what CKD is. Gave patient handouts to further explain his CKD stage along with a HTN and DM logs. He admits to having lower extremity edema and some SOB Denies any dizziness or chest pain Patient given extended education on chronic kidney disease, increasing an exercise regimen as tolerated , having nutritonal meals daily, and the importance of keeping all follow up appointments along with keeping a blood sugar and blood pressure log if appropriate. Encouraged to call monogram with all immediate needs. Patient located at home: [place] Provider located at home office in City/ State: [place], [place] Patient s identity was confirmed with Driving License/ Other mode of identity. Metal Forger'S Assistant present in patients home: Yes Metal Forger'S Assistant took patient vital signs: Yes BHAVANA MataP [address], [place], [address], [facility] - [employer] 11/14/2023 10:18:54 5 text/htm l Patient seen today for assessment. Kazaana Metal Forger'S Assistant is/not home during visit. Patient located at home: [place], [place] Provider located at home office in City/ State: [place], [place] Patient s identity was confirmed with Driving License/ Other mode of identity. Reasonable efforts have been made to maintain usual and customary patient confidentiality. The HPI consists of patient reported history and the provider's clinical interpretation. CLINICAL SUMMARY Sha Bailey is an 78 y/o M with identified conditions: Osteoarthritis, Congestive Heart Failure, Chronic Kidney Disease (Stage 1-4), Hypertensive Disorder, Type 2 Diabetes Mellitus, Anxiety. Currently in Kazaana s CKDelay Risk Factors program, indicating eGFR 45 or is unknown. Last seen by Kazaana on April 25, 2024 by a campground caretaker. Pharmacist medication review pending; clinicians reviewed medication list. no changes. Kazaana has not received notice of any inpatient or emergency visits in the last 12 months. Patient is currently receiving services for the following concerns: Behavioral Health. LABS eGFR 06/28/2024 (53 mL/min/1.73) 03/26/2024 (49 mL/min/1.73) 04/13/2023 (50 mL/min/1.73) Creatinine 06/28/2024 (1.36 mg/dL) 03/26/2024 (1.44 mg/dL) 04/13/2023 (1.42 mg/dL) Potassium 06/28/2024 (4.4 mmol/L) 06/24/2024 (4.1 mmol/L) 03/26/2024 (4 mmol/L) Bicarbonate (CO2) 06/28/2024 (28 mmol/L) 06/24/2024 (23 mmol/L) 04/13/2023 (27 mmol/L) Albumin (Serum) 06/28/2024 (4.1 g/dL) 06/24/2024 (3.9 g/dL) Vitamin D3 (25-OH) No recent Parathyroid Hormone (PTH), Intact No recent Albumin/Creatinine Ratio, Urine (uACR) 06/24/2024 (20.83 mg/g) Hemoglobin A1c (A1c) 06/24/2024 (6.1 %) 06/24/2024 (6.1 %) 03/26/2024 (6.6 %) Glucose 06/28/2024 (35 mg/dL) 06/24/2024 (118 mg/dL) 03/26/2024 (136 mg/dL) LDL 06/24/2024 (43.0 mg/dL) Triglycerides 06/24/2024 (107.0 mg/dL) White Blood Cell (WBC) Count No recent Hemoglobin No recent Iron No recent Ferritin No recent Total Iron Binding Capacity (TIBC) No recent CLINICAL HISTORY Was the patient hospitalized in the last 30 days? No [facility] CURRENT PROGRAM Please select the appropriate [employer] Program for this patient CKDelay - With Risk Factors Is patient in a Palliative Care Program? No, Patient is not enrolled in a Palliative Care Program DEMOGRAPHICS Patient's Primary Language Bengali Residence Status Lives With Family or Friend Are you currently employed? No MEDICATION Medication Review Completed Yes Is the patient taking all their prescription medications as prescribed? Yes Do you need help with any of your medications? No Do you have enough medication to get you through the next 30 days? Yes PATIENT REPORTED HEALTH CONDITIONS Stage of CKD CKD 3A Does the patient have a history of kidney transplant? No Does the patient have a functioning weight scale? Yes Checking Daily Weights Yes Does the patient have a Pacemaker, or Implantable Cardioverter-Defibrillator (ICD)? No Does patient have functioning blood pressure cuff? Yes Does the patient have a functioning glucometer? No SOCIAL HISTORY Does the patient require any assistance from a device/equipment or person, with any of the follwing ADLs: Walking, Transferring, Feeding, Bathing, Grooming, Dressing, Toileting, Continence Yes Assistance Walking: Independent Assistance Transferring Independent Assistance Feeding Independent Assistance Bathing Independent Assistance Grooming Independent Assistance Getting Dressed Independent Assistance Toileting Independent Incontinence No Incontinence Does the patient have any Durable Medical Equipment in the home to assist with Activities of Daily Living? Yes Choose durable medical equipment used by patient Cane Has the Patient had any falls in the last 3 months? No Does the Patient worry about falling or feel unsteady when walking? Yes Are there any concerns around the patient's cognitive status? No Are you worried or concerned that in the next two months you may not have stable housing that you own, rent, or stay in as part of a household? No Does your home have any problems that could make you sick or unsafe? (Examples: Pests, mold, smoke detectors not working, no heat, etc.) No In the past 6 months, has anyone threatened to turn off your utilities? (Example: heat, electric, gas, water) No In the past 2 months, did you or others you live with eat smaller meals or skip meals because you didn't have money for food? No Do you have trouble finding or paying for a ride? No Have you ever had to make the choice of buying your medication versus a basic necessity such as food? No Within the past 6 months, does the patient report anyone (including family or friends) causing physical harm, insulting or talking down to them, threatening them, screamed or cursed at them, or taken advantage of them financially? No Describe Patient's exercise level Exercise program in place In a normal week, how many days does the patient consume alcohol? None What is the patient's current smoking status (tobacco or legal use of marijuana)? Former smoker What is the members pack year history? 1 pack a day When did the member quit smoking? More than 15 years ago In the past year have you used any medications that were not prescribed for you, or which you took more of than you were supposed to take? No What Matters Most: What is most important to the patient in regards to their personal health goals, and individual health outcome? Getting senior hadoop developer visit completed as well as keeping on top of his health. Does the patient have a state advance directive in place? No Is the patient open to advance care planning discussion? Yes How would you rate your general health Good Does the patient have difficulty hearing? Yes Does the patient have difficulty seeing? Yes Vision/Hearing Impairment Additional Details He states is [place], does wear eye glasses. Adequacy of Caregiver Support Member independent PHQ 2-9 PHQ 2-9 Completed: Yes Little interest or pleasure in doing things Not at all Feeling down, depressed, or hopeless Not at all Total Score 0 VITALS Height (FT-IN) 08/18/2024 (0 ft 0 in) Weight (LBS) 08/18/2024 (172.0 lbs) Body Mass Index (BMI) 08/18/2024 (27.8) Blood Pressure (Systolic/Diastolic) 08/18/2024 (114/58) Pain Scale Assessment (1-10) 03/19/2024 (10) O2 Sat % No recent Heart Rate 08/18/2024 (97.0) Respiratory Rate No recent Temperature (Fahrenheit) No recent Jayda Howe, [facility] [address], [place], [address], [facility] - [employer] 08/18/2024 10:16:24
--- OUTSIDE RECORDS SUMMARY | 2025-01-30 18:35 | XMS_ITS | Encounter Summary ---
Author Organization [facility] Address [address] [place] [address] Care Team Providers Care Foam Rubber Mixer Name Role Phone Taurus Jerry MD Unavailable [phone] Mark Chery MD Primary Care Provider [phone] Celestina Higgins RN Unavailable Unavaila Lorena Crenshaw [facility] Unavailable [phone] Merlene Wallis RN Unavailable Unavailable Milo Olson RN Unavailable Unavailable Osiris Mota RN Unavailable [phone] Pancho English MD Primary Care Provider [phone] Mark Chery MD Unavailable [phone] Mark Chery MD Unavailable [phone] Bernadette Bedolla RN Unavailable [phone] Encounter Details Date Type Department Care Team (Latest Contact Info) Description 04/04/2016 Scanned Document EXTERNAL Scan, Clinical [address] [facility] [place] [address] Social History Tobacco Use Types Packs/Day Years Used Date Smoking Tobacco: Former Smokeless Tobacco: Current Chew Alcohol Use Standard Drinks/Week Comments No 0 (1 standard drink = 0.6 oz pur e alcohol) Sex and Gender Information Value Date Recorded Sex Assigned at Not on file Legal Sex Male 6:30 AM SECTION CREWS ACTIVITIES CLERK Gender Identity Not on file Sexual Orientation [...] Entry Date Author No 01/28/2014 8:09 PM SECTION CREWS ACTIVITIES CLERK documented in this encounter Plan of Treatment Upcoming Encounters Date Type Department Care Team (Late st Contact Info) Description 02/09/2025 11:00 AM SECTION CREWS ACTIVITIES CLERK Office Visit [facility] [address] [place] [address] 1st [place] [address] Sha Briggs MD [address] [place] [address], [place] [address] 02/25/2025 2:00 PM SECTION CREWS ACTIVITIES CLERK Office Visit [facility] & Vascular [address] [place] [address], [place] [address] Fran Prajapati MD [address] [place] [address] 02/27/2025 10:00 AM SECTION CREWS ACTIVITIES CLERK Office Visit [address] [place] [phone] Pancho English MD [address] [place] [address], [place] [phone] 05/13/2025 3:10 PM SECTION CREWS ACTIVITIES CLERK [facility] [address] [address] [address] [place] [address] ReadChris, ELECTRIC RANGE ASSEMBLER [address] [facility] [address] [facility] [place], [address] documented as of this encounter Visit Diagnoses Not on filedocumented in this encounter Additional Health Concerns Infection Onset Date Last Indicated Resolved Time COVID-19 pending 09/19/2019 09/19/2019 09/21/2019 6:36 AM CDT COVID-19 pending 10/21/2019 10/21/2019 10/22/2019 12:10 PM CDT Mycoplasma pending 10/22/2019 10/22/2019 0 6:05 PM CDT COVID-19 pending 03/08/2020 03/08/2020 03/08/2020 11:04 AM SECTION CREWS ACTIVITIES CLERK COVID-19 pending 03/08/2020 03/08/2020 03/08/2020 2:29 PM SECTION CREWS ACTIVITIES CLERK COVID-19/FLU/RSV pending 05/08/2020 05/08/2020 10:52 AM SECTION CREWS ACTIVITIES CLERK Mycoplasma pending 05/08/2020 05/08/2020 1:00 PM SECTION CREWS ACTIVITIES CLERK documented as of this encounter Care Teams Foam Rubber Mixer Relationship Specialty Start Date End Date Mark Chery MD [address] [place] [address], [place] [address] PCP - General Family Medicine 12/06/16 06/12/22 Pancho English MD [address] [place] [phone] PCP - General Family Medicine 06/13/22 Mark Chery MD [address] [place] [address], [place] [address] PCP - Attributed Provider-Medicare ACO 09/08/17 10/16/17 Mark Chery MD [address] [place] [address] PCP - Attributed Provider-Medicare ACO 12/09/17 03/25/18 Taurus Jerry MD Cardiology 05/06/14 05/20/20 Celestina Higgins, RN [address] [place] [address] CCM Flooring Professional 03/21/17 05/09/17 Lorena Ariza [facility] [address] [place] [address] Top Flavor Attendant 12/27/17 06/29/24 Merlene Wallis RN [address] [place] [address], [place] [address] CCM Flooring Professional 12/27/17 10/02/18 Milo Olson RN [address] [place] [address] CCM Flooring Professional 03/14/18 07/05/18 Osiris Mota, RN [address] [place] [address], [place] [address] Veneer Sorter 08/25/21 09/23/21 Bernadette Bedolla, RN [address] [place] [address] Veneer Sorter 06/30/24 documented as of this encounter
--- OUTSIDE RECORDS SUMMARY | 2025-01-30 18:35 | XMS_ITS | Encounter Summary ---
Author Organization [facility] Address [address] [place] [address] Care Team Providers Care Homeowner Association Manager Name Role Phone Taurus Jerry MD Unavailable [phone] Mark Chery MD Primary Care Provider [phone] Celestina Higgins RN Unavailable Unavaila Lorena Crenshaw [facility] Unavailable [phone] Merlene Wallis RN Unavailable Unavailable Milo Olson RN Unavailable Unavailable Osiris Mota RN Unavailable [phone] Pancho English MD Primary Care Provider [phone] Mark Chery MD Unavailable [phone] Mark Chery MD Unavailable [phone] Bernadette Bedolla RN Unavailable [phone] Encounter Details Date Type Department Care Team (Late st Contact Info) Description 12/04/2006 Historical Encounter [facility] [address] [place] [address] Enriqueta Palmer MD [address] [place] [address] [place], [phone] Social History Tobacco Use Types Packs/Day Years Used Date Smoking Tobacco: Never Assessed Sex and Gender Information Value Date Recorded Sex Assigned at Not on file Legal Sex Male 6:30 AM BUSINESS SERVICES TECH Gender Identity Not on file Sexual Orientation Not on file documented as of this encounter Miscellaneous Notes * [facility] History and Physical - Enriqueta Palmer MD - 12/04/2006 8:53 AM CDT [facility] NAME: Sha Bailey MR UNIT #: [id number] ROOM #: [facility] #: [id number] PATIENT TYPE: E : 1945 ATTEND PHY: Jason Campos MD ADMIT DATE: 12/02/2006 HISTORY/PHYSICAL The patient does not have any primary care. The patient is a 61-year-old white male with a past medical history significant for history of heart attack per patient when he was about 26 years old stating that at that time he used to drink a lot of alcohol and had a rough life and had a heart attack and stayed in the hospital for some time. Other than that he has had a history of dyslipidemia and has been put on Lipitor but has stopped taking Lipitor about a year ago because that was expensive. The patient does not take any medication currently and denies any other medical problem. He presented to the emergency room with a complaint of chest pain. The patient is stating that since Sunday has had this sense of congestion, indigestion and this morning when he was in the congregational he got this severe substernal chest pain which was sharp and radiated to his left shoulder and left arm. The patient also developed shortness of breath and also diaphoretic. The pain was sharp and was about 7/10. Somebody gave him an Excedrin in the congregational and then later on EMS gave him nitroglycerin, which relieved the pain. The patient is currently chest pain free. The patient denies any fever, cough, chills or headaches. PAST MEDICAL HISTORY: As stated above in the history or present illness. The patient has had a history of dyslipidemia. MEDICATIONS: None. ALLERGIES: No known drug allergies. SURGICAL HISTORY: Negative. SOCIAL HISTORY: The patient denies any alcohol or tobacco. Lives with his . The patient states that he used to drink when he was young. FAMILY HISTORY: Positive for diabetes. REVIEW OF SYSTEMS: The patient denies any headache, visual changes, dysphagia. Positive for occasional GERD. Positive for chest pain as described. Denies any shortness of breath. Positive for dyspnea on exertion on occasion. Denies any nausea or vomiting, constipation or diarrhea. Denies any lower extremity edema. The patient denies any fever or chills. The patient denies history of diabetes, thyroid problems or anemia. PHYSICAL EXAMINATION: GENERAL: The patient is alert and oriented in no acute distress. VITAL SIGNS: Blood pressure 145/101, respirations 16, pulse 68, temperature 96.8. HEENT: Head is normocephalic and atraumatic. Eyes are PERRLA. EOMI. Anicteric sclerae. Oral mucosa is moist, pink, no exudate. NECK: Supple, no JVD, no lymphadenopathy. No thyromegaly. CARDIOVASCULAR: Regular rhythm. S1 and S2. No murmur. No gallops. LUNGS: Clear to auscultation bilaterally. No rales, no wheeze, no rhonchi. ABDOMEN: Obese, soft, nontender. Bowel sounds present. EXTREMITIES: No edema. No cyanosis. Pedal pulses present bilaterally. NEUROLOGIC: Cranial nerves 2-12 are intact. The patient moves all extremities. Nonfocal. LYMPHS: There is no lymphadenopathy in the neck, axillary or groin. SKIN: Warm and dry. There is no skin ulceration or abrasion of the upper or lower extremity. LABS: H+H are 15.1 and 45.5, white cells are 7.5 and platelets are 266, sodium 139, potassium 4.2, bicarb 25, chloride 107, BUN and creatinine are 17 and 1. Glucose is 111. The LFTs are in the normal range. A BNP is 18. CK is 124, MB fraction 1, troponin less than 0.01. The patient also has had an EKG, which is showing sinus rhythm with left axis deviation and inferior infarct which is old. There is no current ST elevation or depression. There is no chest x-ray currently. ASSESSMENT AND PLAN: A 61-year-old with past medical history significant for a history of myocardial infarction and dyslipidemia here with chest pain. 1. Cardiovascular. We are going to admit the patient to telemetry. I am going to rule him out of acute coronary syndrome by serial EKGs given his story. I will do a Cardiolite stress test in the morning if the patient rules out. In the meanwhile we will check a lipid profile. If the patient has dyslipidemia the patient can be started on Pravachol, which is a generic version and is very cheap, about $4 a month. For now I will treat the patient with nitroglycerin and aspirin and Fragmin for DVT prophylaxis. 2. Prophylaxis with Protonix and Fragmin. We are going to modify medical management depending on the patient's outcome and his response to treatment. Electronically Signed by Enriqueta Palmer M.D. 12/03/2006 15:01 Enriqueta Palmer M.D. /OSI cc: MD Enriqueta Buchanan M.D. ex: P P DOC #: [id number] This document contains information that is confidential, exempt from disclosure under applicable law and protected by patient medical privilege. documented in this encounter Plan of Treatment Upcoming Encounters Date Type Department Care Team (Late st Contact Info) Description 02/09/2025 11:00 AM BUSINESS SERVICES TECH Office Visit [facility]rology [address] 1st [place] [address] Sha Briggs MD [address] [place] [address], [place] [address] 02/25/2025 2:00 PM BUSINESS SERVICES TECH Office Visit [facility] [address] [place] [address] Fran Prajapati MD [address] [place] [address] 02/27/2025 10:00 AM BUSINESS SERVICES TECH Office Visit [address] [place] [phone] Pancho English MD [address] [place] [address], [place] [phone] 05/13/2025 3:10 PM BUSINESS SERVICES TECH [facility] Visit [facility] [address] [place], [address] JacekJoseua, MAINTENANCE MILLWRIGHT [address] [facility] [place], [address] documented as of this encounter Visit Diagnoses Not on filedocumented in this encounter Additional Health Concerns Infection Onset Date Last Indicated Resolved Time COVID-19 pending 09/19/2019 09/19/2019 09/21/2019 6:36 AM CDT COVID-19 pending 10/21/2019 10/21/2019 10/22/2019 12:10 PM CDT Mycoplasma pending 10/22/2019 10/22/2019 0 6:05 PM CDT COVID-19 pending 03/08/2020 03/08/2020 03/08/2020 11:04 AM BUSINESS SERVICES TECH COVID-19 pending 03/08/2020 03/08/2020 03/08/2020 2:29 PM BUSINESS SERVICES TECH COVID-19/FLU/RSV pending 05/08/2020 05/08/2020 10:52 AM BUSINESS SERVICES TECH Mycoplasma pending 05/08/2020 05/08/2020 1:00 PM BUSINESS SERVICES TECH documented as of this encounter Care Teams Homeowner Association Manager Relationship Specialty Start Date End Date Mark Chery MD [address] [place] [address], [place] [address] PCP - General Family Medicine 12/06/16 06/12/22 Pancho English MD [address] [place] [address], [place] [address] PCP - General Family Medicine 06/13/22 Mark Chery MD [address] [place] [address], [place] [address] PCP - Attributed Provider-Medicare ACO 09/08/17 10/16/17 Mark Chery MD [address] [place] [address] PCP - Attributed Provider-Medicare ACO 12/09/17 03/25/18 Taurus Jerry MD Cardiology 05/06/14 05/20/20 Celestina Higgins, RN [address] [place] [address] CCM Demand Planning Manager 03/21/17 05/09/17 Lorena Ariza, [facility] [address] [address] Biscuit Packer 12/27/17 06/29/24 Merlene Wallis RN [address] [address] CCM Demand Planning Manager 12/27/17 10/02/18 Milo Olson RN [address] [address] CCM Demand Planning Manager 03/14/18 07/05/18 Osiris Mota, SULY [address] [address] Hall Clerk 08/25/21 09/23/21 Bernadette Bedolla, RN [address] [place] [address] Hall Clerk 06/30/24 documented as of this encounter
--- OUTSIDE RECORDS SUMMARY | 2025-01-30 18:35 | XMS_ITS | Encounter Summary ---
Author Organization [facility] Address [address] [place] [address] [place], [address] Care Team Providers Care Purchasing Engineer Name Role Phone Taurus Jerry MD Unavailable [phone] Mark Chery MD Primary Care Provider [phone] Celestina Higgins RN Unavailable Unavaila Lorena Crenshaw [facility] Unavailable [phone] Merlene Wallis RN Unavailable Unavailable Milo Olson RN Unavailable Unavailable Osiris Mota RN Unavailable [phone] Pancho English MD Primary Care Provider [phone] Mark Chery MD Unavailable [phone] Mark Chery MD Unavailable [phone] Bernadette Bedolla RN Unavailable [phone] Encounter Details Date Type Department Care Team (Late st Contact Info) Description 02/19/2007 Historical Encounter HISTORICAL Provider, MD [facility] [address] [facility] [address] Social History Tobacco Use Types Packs/Day Years Used Date Smoking Tobacco: Never Assessed Sex and Gender Information Value Date Recorded Sex Assigned at Not on file Legal Sex Male 6:30 AM HOSPICE MANAGER Gender Identity Not on file Sexual Orientation Not on file documented as of this encounter Plan of Treatment Upcoming Encounters Date Type Department Care Team (Late st Contact Info) Description 02/09/2025 11:00 AM HOSPICE MANAGER Office Visit [facility] Urology [address] 1st [place] [address] Sha Briggs MD [address] [facility] [place] [address] 02/25/2025 2:00 PM HOSPICE MANAGER Office Visit [facility] [address] [place] [address] Fran Prajapati MD [address] [place] [address], [place] [address] 02/27/2025 10:00 AM HOSPICE MANAGER Office Visit [address] [place] [address] Pancho English MD [address] [place] [address], [place] [address] 05/13/2025 3:10 PM HOSPICE MANAGER [facility] Visit [facility] [address] [place] [address] Chris Read FNP [address] [place] [address] documented as of this encounter Visit Diagnoses Not on filedocumented in this encounter Additional Health Concerns Infection Onset Date Last Indicated Resolved Time COVID-19 pending 09/19/2019 09/19/2019 09/21/2019 6:36 AM CDT COVID-19 pending 10/21/2019 10/21/2019 10/22/2019 12:10 PM CDT Mycoplasma pending 10/22/2019 10/22/2019 0 6:05 PM CDT COVID-19 pending 03/08/2020 03/08/2020 03/08/2020 11:04 AM HOSPICE MANAGER COVID-19 pending 03/08/2020 03/08/2020 03/08/2020 2:29 PM HOSPICE MANAGER COVID-19/FLU/RSV pending 05/08/2020 05/08/2020 10:52 AM HOSPICE MANAGER Mycoplasma pending 05/08/2020 05/08/2020 1:00 PM HOSPICE MANAGER documented as of this encounter Care Teams Purchasing Engineer Relationship Specialty Start Date End Date Mark Chery MD [address] [place] [address], [place] [address] PCP - General Family Medicine 12/06/16 06/12/22 Pancho English MD [address] [place] [address], [place] [address] PCP - General Family Medicine 06/13/22 Mark Chery MD [address] [place] [address], [place] [address] PCP - Attributed Provider-Medicare ACO 09/08/17 10/16/17 Mark Chery MD [address] [place] [address], [place] [address] PCP - Attributed Provider-Medicare ACO 12/09/17 03/25/18 Taurus Jerry MD Cardiology 05/06/14 05/20/20 Celestina Higgins, RN [address] [place] [address] CCM Group Sales Coordinator 03/21/17 05/09/17 Lorena Ariza LMSW [address] [place] [address], [place] [address] Jackscrew Worker 12/27/17 06/29/24 Merlene Wallis RN [address] [place] [address], [place] [address] CCM Group Sales Coordinator 12/27/17 10/02/18 Milo Olson RN [address] [place] [address], [place] [address] CCM Group Sales Coordinator 03/14/18 07/05/18 Osiris Mota, SULY [address] [place] [address], [place] [phone] Precision Agriculture Specialist 08/25/21 09/23/21 Bernadette Bedolla RN [address] [place] [address], [place] [address] Precision Agriculture Specialist 06/30/24 documented as of this encounter
--- OUTSIDE RECORDS SUMMARY | 2025-01-30 18:35 | XMS_ITS | Encounter Summary ---
Author Organization [facility] Address [address] [place] [address] Care Team Providers Care Construction Trench Digger Name Role Phone Taurus Jerry MD Unavailable [phone] Mark Chery MD Primary Care Provider [phone] Celestina Higgins RN Unavailable Unavaila Lorena Crenshaw [facility] Unavailable [phone] Merlene Wallis RN Unavailable Unavailable Milo Olson RN Unavailable Unavailable Osiris Mota RN Unavailable [phone] Pancho English MD Primary Care Provider [phone] Mark Chery MD Unavailable [phone] Mark Chery MD Unavailable [phone] Bernadette Bedolla RN Unavailable [phone] Encounter Details Date Type Department Care Team (Late st Contact Info) Description 08/28/2007 Historical Encounter Heart & Vascular [address] [place] [address] Taurus Jerry MD [address] [facility] [address] [facility] [place] [address] Social History Tobacco Use Types Packs/Day Years Used Date Smoking Tobacco: Never Assessed Sex and Gender Information Value Date Recorded Sex Assigned at Not on file Legal Sex Male 6:30 AM SUPERVISOR CONCRETE STONE FINISHING Gender Identity Not on file Sexual Orientation Not on file documented as of this encounter Miscellaneous Notes * Office Visit - Taurus Jerry MD - 08/28/2007 9:42 AM CDT Cardiology - [place] Office Visit DATE OF SERVICE: 08/26/2007 PATIENT NAME: PASCALE BAILEY : 1945 REASON FOR FOLLOW UP: CAD with drug-eluting stent. HISTORY OF PRESENT ILLNESS: The patient is a 61-year-old man with CAD who presented to our clinic with symptoms suggestive of angina. Following an abnormal cardiac CTA, he was taken to the cardiac catheterization laboratory in December of 2006 where he was found to have a high-grade proximal LAD stenosis that was treated with a drug-eluting stent. He has done quite well following his angioplasty procedure and otherwise has no flow limiting stenoses throughout the remainder of his coronary circulation and essentially has luminal irregularities elsewhere. He is continuing to do well and tolerating his current medical regimen without difficulty and we did discuss his medical profile in detail including the need for dual antiplatelet therapy for 12 months following angioplasty and stenting. PAST MEDICAL, PAST SURGICAL, SOCIAL, AND FAMILY HISTORY: Unchanged from prior. REVIEW OF SYSTEMS: As noted above. There is no angina, no shortness of breath, no palpitations, no syncope, no near syncope. PHYSICAL EXAMINATION: VITAL SIGNS: Blood pressure 132/67. Pulse 73 and regular. Respiratory rate normal. GENERAL: Well developed, well nourished, man in no apparent distress. CARDIAC: Regular rate and rhythm with no murmurs, gallops or rubs. LUNGS: Clear to auscultation bilaterally. No wheezes, rales or rhonchi. ABDOMEN: Soft, nontender, and nondistended with no palpable mass. EXT: Warm and well perfused. No cyanosis, clubbing or edema. DATA REVIEW: As referenced above. IMPRESSION: 1. CAD status post drug-eluting stent to the LAD, tolerating current medical regimen without difficulty. 2. Dyslipidemia, on Lipitor therapy. 3. Systemic hypertension, currently under excellent control with Toprol-XL. RECOMMENDATIONS: 1. Continue current medical profile as outlined above. 2. Dual antiplatelet therapy until December of 2007 uninterrupted. 3. Follow up with us in approximately six months. Taurus Jerry MD TR: BTR/TB Conf #: [id number] Dictation ID: [id number] cc: (Signed in IC-Chart by Taurus Jerry MD on 2007-08-28 16:06:42) documented in this encounter Plan of Treatment Upcoming Encounters Date Type Department Care Team (Late st Contact Info) Description 02/09/2025 11:00 AM SUPERVISOR CONCRETE STONE FINISHING Office Visit [facility] Urology [address] [place] [address] 1st [place] [address] Pascale Briggs MD [address] [place] [address] 02/25/2025 2:00 PM SUPERVISOR CONCRETE STONE FINISHING Office Visit Heart & Vascular [address] [place] [address], [place] [address] Fran Prajapati MD [address] [place] [address] 02/27/2025 10:00 AM SUPERVISOR CONCRETE STONE FINISHING Office Visit [address] [place] [address] Pancho English MD [address] [place] [address], [place] [address] 05/13/2025 3:10 PM SUPERVISOR CONCRETE STONE FINISHING [facility] [address] [place] [address] Chris Read FNP [address] [place] [address] documented as of this encounter Visit Diagnoses Not on filedocumented in this encounter Additional Health Concerns Infection Onset Date Last Indicated Resolved Time COVID-19 pending 09/19/2019 09/19/2019 09/21/2019 6:36 AM CDT COVID-19 pending 10/21/2019 10/21/2019 10/22/2019 12:10 PM CDT Mycoplasma pending 10/22/2019 10/22/2019 0 6:05 PM CDT COVID-19 pending 03/08/2020 03/08/2020 03/08/2020 11:04 AM SUPERVISOR CONCRETE STONE FINISHING COVID-19 pending 03/08/2020 03/08/2020 03/08/2020 2:29 PM SUPERVISOR CONCRETE STONE FINISHING COVID-19/FLU/RSV pending 05/08/2020 05/08/2020 10:52 AM SUPERVISOR CONCRETE STONE FINISHING Mycoplasma pending 05/08/2020 05/08/2020 1:00 PM SUPERVISOR CONCRETE STONE FINISHING documented as of this encounter Care Teams Construction Trench Digger Relationship Specialty Start Date End Date Mark Chery MD [address] [place] [address], [place] [address] PCP - General Family Medicine 12/06/16 06/12/22 Pancho English MD [address] [place] [address], [place] [phone] PCP - General Family Medicine 06/13/22 Mark Chery MD [address] [place] [address], [place] [address] [phone] PCP - Attributed Provider-Medicare ACO 09/08/17 10/16/17 Mark Chery MD [address] [facility] [place] [address] [phone] PCP - Attributed Provider-Medicare ACO 12/09/17 03/25/18 Taurus Jerry MD Cardiology 05/06/14 05/20/20 Celestina Higgins, RN [address] [facility] [place] [address] CCM Machinist Supervisor 03/21/17 05/09/17 Lorena Ariza, [facility] [address] [place] [address] Sweeper Brush Maker Machine 12/27/17 06/29/24 Merlene Wallis RN [address] [place] [address] CCM Machinist Supervisor 12/27/17 10/02/18 Milo Olson RN [address] [place] [address] CCM Machinist Supervisor 03/14/18 07/05/18 Osiris Mota, SULY [address] [place] [address] Healthcare Architect 08/25/21 09/23/21 Bernadette Bedolla, SULY [address] [address] Healthcare Architect 06/30/24 documented as of this encounter
--- OUTSIDE RECORDS SUMMARY | 2025-01-30 18:35 | XMS_ITS | Encounter Summary ---
Author Organization [facility] Address [address] [place] [address] Care Team Providers Care Sorting Machine Attendant Name Role Phone Taurus Jerry MD Unavailable [phone] Mark Chery MD Primary Care Provider [phone] Celestina Higgins RN Unavailable Unavaila Lorena Crenshaw [facility] [place] Unavailable [phone] Merlene Wallis RN Unavailable Unavailable Milo Olson RN Unavailable Unavailable Osiris Mota RN Unavailable [phone] Pancho English MD Primary Care Provider [phone] Mark Chery MD Unavailable [phone] Mark Chery MD Unavailable [phone] Bernadette Bedolla RN Unavailable [phone] Encounter Details Date Type Department Care Team (Late st Contact Info) Description 12/11/2006 Historical Encounter Heart & Vascular [address] [place] [address] Taurus Jerry MD [address] [facility] [address] [facility] [place] [address] Social History Tobacco Use Types Packs/Day Years Used Date Smoking Tobacco: Never Assessed Sex and Gender Information Value Date Recorded Sex Assigned at Not on file Legal Sex Male 6:30 AM GLOBAL RISK MANAGEMENT DIRECTOR Gender Identity Not on file Sexual Orientation Not on file documented as of this encounter Miscellaneous Notes * FG Procedures - Taurus Jerry MD - 12/11/2006 11:44 AM CDT [facility] NAME: Sha Bailey MR UNIT #: [id number] CONTROL #: [id number] : 1945 ROOM #: [id number] XRAY #: [id number] PROC DATE:12/11/2006 PROC. TYPE: Chest PT TYPE: RADIOLOGY REPORT HISTORY: chest pain PROCEDURE: Chest single view FINDINGS: Normal heart size. Normal vascularity. The lungs are clear. Mediastinum is normal. . IMPRESSION: No acute findings Electronically Signed by: MD Frank Neil J Document ID: [id number] Interpreted By: MD Frank Neil J Neil J. Solomon, M.D. /[facility] RADIOLOGIST Electronically Signed by Ignacio Frank M.D. 12/11/2006 11:10 cc: Angelo Haider M.D. ex: A A DOC #: [id number] This document contains information that is confidential, exempt from disclosure under applicable law and protected by patient medical privilege. documented in this encounter Plan of Treatment Upcoming Encounters Date Type Department Care Team (Late st Contact Info) Description 02/09/2025 11:00 AM GLOBAL RISK MANAGEMENT DIRECTOR Office Visit [facility] Urology [address] [place] [address] 1st [place] [address] Sha Briggs MD [address] [place] [address] [place] [address] 02/25/2025 2:00 PM GLOBAL RISK MANAGEMENT DIRECTOR Office Visit Heart & Vascular [address] [place] [address], [place] [address] Fran Prajapati MD [address] [place] [address] 02/27/2025 10:00 AM GLOBAL RISK MANAGEMENT DIRECTOR Office Visit [address] [place] [address] Pancho English MD [address] [place] [address] 05/13/2025 3:10 PM GLOBAL RISK MANAGEMENT DIRECTOR [facility] Visit [facility] [address] [place] [address] Chris Read FNP [address] [place] [address] documented as of this encounter Visit Diagnoses Not on filedocumented in this encounter Additional Health Concerns Infection Onset Date Last Indicated Resolved Time COVID-19 pending 09/19/2019 09/19/2019 09/21/2019 6:36 AM CDT COVID-19 pending 10/21/2019 10/21/2019 10/22/2019 12:10 PM CDT Mycoplasma pending 10/22/2019 10/22/2019 0 6:05 PM CDT COVID-19 pending 03/08/2020 03/08/2020 03/08/2020 11:04 AM GLOBAL RISK MANAGEMENT DIRECTOR COVID-19 pending 03/08/2020 03/08/2020 03/08/2020 2:29 PM GLOBAL RISK MANAGEMENT DIRECTOR COVID-19/FLU/RSV pending 05/08/2020 05/08/2020 10:52 AM GLOBAL RISK MANAGEMENT DIRECTOR Mycoplasma pending 05/08/2020 05/08/2020 1:00 PM GLOBAL RISK MANAGEMENT DIRECTOR documented as of this encounter Care Teams Sorting Machine Attendant Relationship Specialty Start Date End Date Mark Chery MD [address] [facility] [place] [address] PCP - General Family Medicine 12/06/16 06/12/22 Pancho English MD [address] [place] [address], [address] PCP - General Family Medicine 06/13/22 Mark Chery MD [address] [place] [address], [place] [address] PCP - Attributed Provider-Medicare ACO 09/08/17 10/16/17 Mark Chery MD [address] [place] [address], [place] [address] PCP - Attributed Provider-Medicare ACO 12/09/17 03/25/18 Taurus Jerry MD Cardiology 05/06/14 05/20/20 Celestina Higgins, RN [address] [place] [address] CCM Waterproofer 03/21/17 05/09/17 Lorena Ariza [facility] [address] [facility] [place] [address] Recreational Therapy Technician 12/27/17 06/29/24 Merlene Wallis, SULY [address] [facility] [place] [address] CCM Waterproofer 12/27/17 10/02/18 Milo Olson RN [address] [facility] [place] [address] CCM Waterproofer 03/14/18 07/05/18 Osiris Mota, SULY [address] [facility] [place] [address] Personalized Living Manager Nurse 08/25/21 09/23/21 Bernadette Bedolla, RN [address] [place] [address] Personalized Living Manager Nurse 06/30/24 documented as of this encounter
--- OUTSIDE RECORDS SUMMARY | 2025-01-30 18:35 | XMS_ITS | Encounter Summary ---
Author Organization [facility] Address [address] [address] Care Team Providers Care Dumpcart Driver Name Role Phone Taurus Jerry MD Unavailable [phone] Mark Chery MD Primary Care Provider [phone] Celestina Higgins RN Unavailable Unavaila Lorena Crenshaw [facility] Unavailable [phone] Merlene Wallis RN Unavailable Unavailable Milo Olson RN Unavailable Unavailable Osiris Mota RN Unavailable [phone] Pancho English MD Primary Care Provider [phone] Mark Chery MD Unavailable [phone] Mark Chery MD Unavailable [phone] Bernadette Bedolla RN Unavailable [phone] Encounter Details Date Type Department Care Team (Late st Contact Info) Description 12/07/2006 Historical Encounter [facility] Services [address] [facility] [place] [address] Julio C Arellano MD Social History Tobacco Use Types Packs/Day Years Used Date Smoking Tobacco: Never Assessed Sex and Gender Information Value Date Recorded Sex Assigned at Not on file Legal Sex Male 6:30 AM COMPUTERIZED TABLE CUTTER Gender Identity Not on file Sexual Orientation Not on file documented as of this encounter Miscellaneous Notes * Imaging - Julio C Arellano MD - 12/07/2006 12:00 AM CDT Imaging Department CT DATE OF SERVICE: 12/07/2006 PATIENT NAME: PASCALE CEJA : 1945 EXAM: [facility]-CARDIAC CTA WITH RADIOLOGIST MICHELE ORDERED BY: JULIO C ARELLANO A CTA study was performed in the Cardiology Department with the CTA vascular images manipulated and interpreted by them. The accompanying routine CT images of the remainder of the soft tissue structures are submitted to the Radiology Department for review and interpretation by us. The CTA findings have been generated in a separate report from the Cardiology Department. Our findings on the remaining visualized structures are included in this separate report. CARDIAC CTA - OVER-READ: LIMITED CT CHEST WITH AND WITHOUT CONTRAST: HISTORY: Chest pain. TECHNIQUE: Precontrast images obtained through the heart. Subsequently, 100 mL of Isovue 370 was administered intravenously and post-contrast images were obtained as well. FINDINGS: Precontrast images do demonstrate coronary calcifications. This will be described in detail on the CTA portion of this exam. With contrast administration, the portion of the thoracic aorta and the pulmonary arteries visualized are unremarkable in this patient. No evidence of filling defects is noted. In evaluating the lungs, no evidence of nodules, masses or focal infiltrates are demonstrated. Portions of the upper abdomen visualized demonstrate no evidence of abnormality. IMPRESSION: Negative limited CT of the chest. Mark Franz MD TR: SUKUMAR Conf #: [id number] Dictation ID: [id number] cc: (Signed in IC-Chart by Parish Alicea MD on Dec 11 2006 7:30AM) (Reviewed in IC-Chart by Julio C Arellano MD on 06/05/2007 2:16:04 PM) documented in this encounter Plan of Treatment Upcoming Encounters Date Type Department Care Team (Late st Contact Info) Description 02/09/2025 11:00 AM COMPUTERIZED TABLE CUTTER Office Visit [facility] Urology [address] 1st [place] [address] Pascale Briggs MD [address] [facility] [place] [address] 02/25/2025 2:00 PM COMPUTERIZED TABLE CUTTER Office Visit Heart & Vascular [address] [place] [address] Fran Prajapati MD [address] [place] [address] 02/27/2025 10:00 AM COMPUTERIZED TABLE CUTTER Office Visit [address] [place] [address] Pancho English MD [address] [place] [address], [place] [address] 05/13/2025 3:10 PM COMPUTERIZED TABLE CUTTER [facility] [address] [place] [address] Chris Read FNP [address] [place] [address] documented as of this encounter Visit Diagnoses Not on filedocumented in this encounter Additional Health Concerns Infection Onset Date Last Indicated Resolved Time COVID-19 pending 09/19/2019 09/19/2019 09/21/2019 6:36 AM CDT COVID-19 pending 10/21/2019 10/21/2019 10/22/2019 12:10 PM CDT Mycoplasma pending 10/22/2019 10/22/2019 0 6:05 PM CDT COVID-19 pending 03/08/2020 03/08/2020 03/08/2020 11:04 AM COMPUTERIZED TABLE CUTTER COVID-19 pending 03/08/2020 03/08/2020 03/08/2020 2:29 PM COMPUTERIZED TABLE CUTTER COVID-19/FLU/RSV pending 05/08/2020 05/08/2020 10:52 AM COMPUTERIZED TABLE CUTTER Mycoplasma pending 05/08/2020 05/08/2020 1:00 PM COMPUTERIZED TABLE CUTTER documented as of this encounter Care Teams Dumpcart Driver Relationship Specialty Start Date End Date Mark Chery MD [address] [place] [address], [place] [address] PCP - General Family Medicine 12/06/16 06/12/22 Pancho English MD [address] [place] [address], [place] [address] PCP - General Family Medicine 06/13/22 Mark Chery MD [address] [place] [address], [place] [address] PCP - Attributed Provider-Medicare ACO 09/08/17 10/16/17 Mark Chery MD [address] [place] [address], [place] [address] PCP - Attributed Provider-Medicare ACO 12/09/17 03/25/18 Taurus Jerry MD Cardiology 05/06/14 05/20/20 Celestina Higgins, RN [address] [place] [address] CCM Knapsack Sprayer 03/21/17 05/09/17 Lorena Ariza LMSW [address] [place] [address], [place] [address] Forward Air Controller/Air Officer 12/27/17 06/29/24 Merlene Wallis, SULY [address] [place] [address], [place] [address] CCM Knapsack Sprayer 12/27/17 10/02/18 Milo Olson RN [address] [place] [address], [place] [address] CCM Knapsack Sprayer 03/14/18 07/05/18 Osiris Mota RN [address] [place] [address], [place] [address] Paver Layer 08/25/21 09/23/21 Bernadette Bedolla RN [address] [place] [address], [place] [address] Paver Layer 06/30/24 documented as of this encounter
--- OUTSIDE RECORDS SUMMARY | 2025-01-30 18:35 | XMS_ITS | Encounter Summary ---
Author Organization [facility] Address [address] [place] [address] [place], [address] Care Team Providers Care Supervisor Telephone Information Name Role Phone Taurus Jerry MD Unavailable [phone] Mark Chery MD Primary Care Provider [phone] Celestina Higgins RN Unavailable Unavaila Lorena Crenshaw [facility] Unavailable [phone] Merlene Wallis RN Unavailable Unavailable Milo Olson RN Unavailable Unavailable Osiris Mota RN Unavailable [phone] Pancho English MD Primary Care Provider [phone] Mark Chery MD Unavailable [phone] Mark Chery MD Unavailable [phone] Bernadette Bedolla RN Unavailable [phone] Encounter Details Date Type Department Care Team (Late st Contact Info) Description 12/10/2006 Historical Encounter HISTORICAL Provider, MD Twin [address] [facility] [place] [address] Social History Tobacco Use Types Packs/Day Years Used Date Smoking Tobacco: Never Assessed Sex and Gender Information Value Date Recorded Sex Assigned at Not on file Legal Sex Male 6:30 AM LOCOMOTIVE CRANE OPERATOR HELPER Gender Identity Not on file Sexual Orientation Not on file documented as of this encounter Plan of Treatment Upcoming Encounters Date Type Department Care Team (Late st Contact Info) Description 02/09/2025 11:00 AM LOCOMOTIVE CRANE OPERATOR HELPER Office Visit [facility] Urology [address] 1st [place] [address] Sha Briggs MD [address] [place] [address] 02/25/2025 2:00 PM LOCOMOTIVE CRANE OPERATOR HELPER Office Visit Heart & Vascular [address] [address] Fran Prajapati MD [address] [place] [address], [place] [address] 02/27/2025 10:00 AM LOCOMOTIVE CRANE OPERATOR HELPER Office Visit [address] [place] [address] Pancho English MD [address] [place] [address], [place] [address] 05/13/2025 3:10 PM LOCOMOTIVE CRANE OPERATOR HELPER [facility] Visit [facility] [address] [place] [address] Chris Read FNP [address] [place] [address] documented as of this encounter Visit Diagnoses Not on filedocumented in this encounter Additional Health Concerns Infection Onset Date Last Indicated Resolved Time COVID-19 pending 09/19/2019 09/19/2019 09/21/2019 6:36 AM CDT COVID-19 pending 10/21/2019 10/21/2019 10/22/2019 12:10 PM CDT Mycoplasma pending 10/22/2019 10/22/2019 0 6:05 PM CDT COVID-19 pending 03/08/2020 03/08/2020 03/08/2020 11:04 AM LOCOMOTIVE CRANE OPERATOR HELPER COVID-19 pending 03/08/2020 03/08/2020 03/08/2020 2:29 PM LOCOMOTIVE CRANE OPERATOR HELPER COVID-19/FLU/RSV pending 05/08/2020 05/08/2020 10:52 AM LOCOMOTIVE CRANE OPERATOR HELPER Mycoplasma pending 05/08/2020 05/08/2020 1:00 PM LOCOMOTIVE CRANE OPERATOR HELPER documented as of this encounter Care Teams Supervisor Telephone Information Relationship Specialty Start Date End Date Mark Chery MD [address] [place] [address], [place] [address] PCP - General Family Medicine 12/06/16 06/12/22 Pancho English MD [address] [place] [address], [place] [address] PCP - General Family Medicine 06/13/22 Mark Chery MD [address] [place] [address], [place] [address] PCP - Attributed Provider-Medicare ACO 09/08/17 10/16/17 Mark Chery MD [address] [place] [address], [place] [address] PCP - Attributed Provider-Medicare ACO 12/09/17 03/25/18 Taurus Jerry MD Cardiology 05/06/14 05/20/20 Celestina Higgins, RN [address] [place] [address] CCM Boat Patcher Plastic 03/21/17 05/09/17 Lorena Ariza LMSW [address] [place] [address], [place] [address] Inspector Watch Train 12/27/17 06/29/24 Merlene Wallis RN [address] [place] [address], [place] [address] CCM Boat Patcher Plastic 12/27/17 10/02/18 Milo Olson RN [address] [place] [address], [place] [address] CCM Boat Patcher Plastic 03/14/18 07/05/18 Osiris Mota, SULY [address] [place] [address], [place] [address] Batch Heat Treat Operator 08/25/21 09/23/21 Bernadette Bedolla RN [address] [place] [address], [place] [address] Batch Heat Treat Operator 06/30/24 documented as of this encounter
--- OUTSIDE RECORDS SUMMARY | 2025-01-30 18:35 | XMS_ITS | Encounter Summary ---
Author Organization [facility] Address [address] [place] [address], [place] [address] Care Team Providers Care Sales Enablement Specialist Name Role Phone Taurus Jerry MD Unavailable [phone] Mark Chery MD Primary Care Provider [phone] Celestina Higgins RN Unavailable Unavaila ble Lorena Ariza [facility] Unavailable [phone] Merlene Wallis RN Unavailable Unavailable Milo Olson RN Unavailable Unavailable Osiris Mota RN Unavailable [phone] Pancho English MD Primary Care Provider [phone] Mark Chery MD Unavailable [phone] Mark Chery MD Unavailable [phone] Bernadette Bedolla RN Unavailable [phone] Encounter Details Date Type Department Care Team (Late st Contact Info) Description 08/20/2007 Letters (Transcribed) Heart & Vascular [address] [place] [address] Taurus Jerry MD [address] [facility] [address] [facility] [place] [address] Social History Tobacco Use Types Packs/Day Years Used Date Smoking Tobacco: Never Assessed Sex and Gender Information Value Date Recorded Sex Assigned at Not on file Legal Sex Male 6:30 AM LEASE ADMINISTRATOR Gender Identity Not on file Sexual Orientation Not on file documented as of this encounter Miscellaneous Notes * Letter - Taurus Jrery MD - 08/20/2007 11:38 AM CDT - [facility] - - 08/26/2007Sha Bailey1812 [facility], [place] Re: NOTICE OF CANCELLED APPOINTMENT - Dear Sha Bailey: This letter is to notify you that your appointment with Taurus Jerry MD on 08/26/2007 has been CANCELLED. We have rescheduled your appointment to 08/26/2007 at 09:00am If this appointment is not convenient for you, please call our office at to reschedule. We apologize for any inconvenience. Thank you. Sincerely, Taurus Jerry MD [address] [place] [address], [place] [address] documented in this encounter Plan of Treatment Upcoming Encounters Date Type Department Care Team ([facility] st Contact Info) Description 02/09/2025 11:00 AM LEASE ADMINISTRATOR Office Visit [facility] Urology [address] [place] [address], [place] [address] Sha Briggs MD [address] [place] [address], [place] [address] 02/25/2025 2:00 PM LEASE ADMINISTRATOR Office Visit Heart & Vascular [address] [place] [address], [place] [address] Fran Prajapati MD [address] [place] [address], [place] [address] 02/27/2025 10:00 AM LEASE ADMINISTRATOR Office Visit [address] [place] [address] Pancho English MD 502 [facility], [address] 05/13/2025 3:10 PM LEASE ADMINISTRATOR [facility] [address] [place] [address] Chris Read, GROUND SURVEILLANCE SYSTEMS OPERATOR [address] [place] [address] documented as of this encounter Visit Diagnoses Not on filedocumented in this encounter Additional Health Concerns Infection Onset Date Last Indicated Resolved Time COVID-19 pending 09/19/2019 09/19/2019 09/21/2019 6:36 AM CDT COVID-19 pending 10/21/2019 10/21/2019 10/22/2019 12:10 PM CDT Mycoplasma pending 10/22/2019 10/22/2019 0 6:05 PM CDT COVID-19 pending 03/08/2020 03/08/2020 03/08/2020 11:04 AM LEASE ADMINISTRATOR COVID-19 pending 03/08/2020 03/08/2020 03/08/2020 2:29 PM LEASE ADMINISTRATOR COVID-19/FLU/RSV pending 05/08/2020 05/08/2020 10:52 AM LEASE ADMINISTRATOR Mycoplasma pending 05/08/2020 05/08/2020 1:00 PM LEASE ADMINISTRATOR documented as of this encounter Care Teams Sales Enablement Specialist Relationship Specialty Start Date End Date Mark Chery MD [address] [place] [address], [address] PCP - General Family Medicine 12/06/16 06/12/22 Pancho English MD [address] [place] [address], [address] PCP - General Family Medicine 06/13/22 Mark Chery MD 8[address] [place] [address] PCP - Attributed Provider-Medicare ACO 09/08/17 10/16/17 Mark Chery MD 822 [place] [address] PCP - Attributed Provider-Medicare ACO 12/09/17 03/25/18 Taurus Jerry MD Cardiology 05/06/14 05/20/20 Celestina Higgins, RN 822 [place] [address] CCM Director Of Front Office 03/21/17 05/09/17 Lorena Ariza [facility] [address] [place] [address] Behavioral Health Worker 12/27/17 06/29/24 Merlene Wallis, SULY [address] [place] [address], [place] [address] CCM Director Of Front Office 12/27/17 10/02/18 Milo Olson RN [address] [place] [address] CCM Director Of Front Office 03/14/18 07/05/18 Osiris Mota, SULY [address] [place] [address] Colorist Dyer 08/25/21 09/23/21 Bernadette Bedolla, SULY [address] [address] Colorist Dyer 06/30/24 documented as of this encounter
--- OUTSIDE RECORDS SUMMARY | 2025-01-30 18:35 | XMS_ITS | Encounter Summary ---
Author Organization [facility] Address [address] [place], [address] Care Team Providers Care Stamp Clerk Name Role Phone Taurus Jerry MD Unavailable [phone] Mark Chery MD Primary Care Provider [phone] Celestina Higgins RN Unavailable Unavaila ble Lorena Ariza [facility] Unavailable [phone] Merlene Wallis RN Unavailable Unavailable Milo Olson RN Unavailable Unavailable Osiris Mota RN Unavailable [phone] Pancho English MD Primary Care Provider [phone] Mark Chery MD Unavailable [phone] Mark Chery MD Unavailable [phone] Bernadette Bedolla RN Unavailable [phone] Encounter Details Date Type Department Care Team (Late st Contact Info) Description 01/24/2008 Letters (Transcribed) [facility] Optometry [address]nd [place] [address] Lashell Higgins, OD [address] [place] [address] [facility] [place] [address] Social History Tobacco Use Types Packs/Day Years Used Date Smoking Tobacco: Never Assessed Sex and Gender Information Value Date Recorded Sex Assigned at Not on file Legal Sex Male 6:30 AM SNACK BAR ATTENDANT Gender Identity Not on file Sexual Orientation Not on file documented as of this encounter Miscellaneous Notes * Letter - Lashell Higgins OD - 01/24/2008 12:20 PM CST OPHTHALMOLOGY - 01/24/2008Sha Bailey1812 [facility] Re: Sha Bailey: - It is time for your visit with Lashell Higgins OD. If you have not already done so, please call our office at (or call our toll free number and ask for the Ophthalmology Department) at your earliest convenience to schedule this appointment. Thank you. Sincerely, Lashell Higgins OD Ophthalmology [address] [place] [address] documented in this encounter Plan of Treatment Upcoming Encounters Date Type Department Care Team (Late st Contact Info) Description 02/09/2025 11:00 AM SNACK BAR ATTENDANT Office Visit [facility] Urology [address] [place] [address] Sha Briggs MD [address] [place] [address] 02/25/2025 2:00 PM SNACK BAR ATTENDANT Office Visit Heart & Vascular [address] [place] [address] Fran Prajapati MD [address] [place] [address] 02/27/2025 10:00 AM SNACK BAR ATTENDANT Office Visit [address] [place] [address] Pancho English MD [address] [place] [address], [place] [address] 05/13/2025 3:10 PM SNACK BAR ATTENDANT [facility] Visit [facility] [address] [place], [address] Chris Read, ROBER [address] [facility] [place], [address] documented as of this encounter Visit Diagnoses Not on filedocumented in this encounter Additional Health Concerns Infection Onset Date Last Indicated Resolved Time COVID-19 pending 09/19/2019 09/19/2019 09/21/2019 6:36 AM CDT COVID-19 pending 10/21/2019 10/21/2019 10/22/2019 12:10 PM CDT Mycoplasma pending 10/22/2019 10/22/2019 0 6:05 PM CDT COVID-19 pending 03/08/2020 03/08/2020 03/08/2020 11:04 AM SNACK BAR ATTENDANT COVID-19 pending 03/08/2020 03/08/2020 03/08/2020 2:29 PM SNACK BAR ATTENDANT COVID-19/FLU/RSV pending 05/08/2020 05/08/2020 10:52 AM SNACK BAR ATTENDANT Mycoplasma pending 05/08/2020 05/08/2020 1 1:00 PM SNACK BAR ATTENDANT documented as of this encounter Care Teams Stamp Clerk Relationship Specialty Start Date End Date Mark Chery MD [address] [place] [address], [place] [address] PCP - General Family Medicine 12/06/16 06/12/22 Pancho English MD [address] [place] [address], [address] PCP - General Family Medicine 06/13/22 Mark Chery MD [address] [place] [address], [place] [address] [phone] PCP - Attributed Provider-Medicare ACO 09/08/17 10/16/17 Mark Chery MD 822 [facility], [address] PCP - Attributed Provider-Medicare ACO 12/09/17 03/25/18 Taurus Jerry MD Cardiology 05/06/14 05/20/20 Celestina Higgins, RN 822 [place] [address] CCM Lighting Technician 03/21/17 05/09/17 Lorena Ariza [facility] [address] [place] [address] Specialty Trimmer 12/27/17 06/29/24 Merlene Wallis, SULY [address] [address] CCM Lighting Technician 12/27/17 10/02/18 Milo Olson RN [address] [place] [address] CCM Lighting Technician 03/14/18 07/05/18 Osiris Mota, SULY [address] [address] Fagoter 08/25/21 09/23/21 Bernadette Bedolla, SULY [address] [place] [facility] [place] [address] Fagoter 06/30/24 documented as of this encounter
--- OUTSIDE RECORDS SUMMARY | 2025-01-30 18:35 | XMS_ITS | Encounter Summary ---
Author Organization [facility] Address [address] [place] [address] Care Team Providers Care Warehouse General Laborer Name Role Phone Taurus Jerry MD Unavailable [phone] Mark Chery MD Primary Care Provider [phone] Celestina Higgins RN Unavailable Unavaila ble Lorena Arzia [facility] Unavailable [phone] Merlene Wallis RN Unavailable Unavailable Milo Olson RN Unavailable Unavailable Osiris Mota RN Unavailable [phone] Pancho English MD Primary Care Provider [phone] Mark Chery MD Unavailable [phone] Mark Chery MD Unavailable [phone] Bernadette Bedolla RN Unavailable [phone] Encounter Details Date Type Department Care Team (Late st Contact Info) Description 01/17/2007 Historical Encounter [facility] [address] [place] [address] Lashell Higgins, OD [address] [place] [address] [facility] [place] [address] Social History Tobacco Use Types Packs/Day Years Used Date Smoking Tobacco: Never Assessed Sex and Gender Information Value Date Recorded Sex Assigned at Not on file Legal Sex Male 6:30 AM CARTON MAKING MACHINE OPERATOR Gender Identity Not on file Sexual Orientation Not on file documented as of this encounter Miscellaneous Notes * Office Visit - Lashell Higgins, OD - 01/17/2007 1:55 PM CST - PATIENT NAME: Sha Walden - : - 1945 - NEW VISIT - Pt presents as a 61 y/o white male for eye exam. States gradual decrease in va last 6 mths. States he had heart attack c stints Dec 13, 2006. hx of htn that is not currently controlled. Pt reports that he was adopted and recently learned that there is a strong family hx of heart dz in his biological family. - Location: ou - Severity: -07/19 - Timing:progressively worse - Modifying Factors: - Quality/Character: - Duration: 6 mos - Context/Situation: - Assoc signs/symptoms: - DROPS: n/a - - MEd - -Medications Checked and Reviewed (Medications Checked -and- Reviewed), -, -, - - - - RestTaurus green - 12/10/2006 - Acute - [ ] 2 - Aspirin Enteric Coated (aspirin), 325 mg, enteric coated tablet, oral, 1 tablet(s), QD - - - Enriqueta Palmer - - Acute - [ ] 3 - Lipitor (atorvastatin), 40 mg, tablet, oral, 1 tablet(s), QD - 30 - - Rest Taurus 01/01/2007 - Chronic - [ ] 4 - Plavix (clopidogrel), 75 mg, tablet, oral, 1 tablet(s), QD - 30 - - Rester, Taurus 01/01/2007 - Chronic - [ ] 5 - Protonix (pantoprazole), 40 mg, enteric coated tablet, oral, 1 tablet(s), QD - 30 - - Rester, Taurus 01/01/2007 - Chronic - [ ] 6 - Toprol-XL (metoprolol), 100 mg, tablet, extended release, oral, 1 tablet(s), QD - 30 - - Rest, Taurus 01/01/2007 - Chronic - - *List currently sorted by Description in an ascending direction. 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 - Current RX: 8 yrs - Contacts: - ETOH: no - TOB: no - Review of Systems:(positives indicated with X , otherwise negative per patient) - Constitutional Symptoms - Stomach: - Fever: - Intestines: - Weight Loss: - GENITOURINARY - EYES - Genitals: - Loss of vision - Kidney: - Blurred vision X - Bladder - Distorted vision - ENT - Loss of side vision: - Sinus congestion: - Double vision: - Runny nose: - Dryness: X - Post nasal drip: - Mucous discharge: - Chronic cough: - Redness: - Dry throat/mouth: - Brittaney or gritty feeling: - MUSCULOSKELETAL - Itching: - Muscle pain: - Burning: - Joint pain: - FBS: - INTEGUMENT - Excess tearing/watering: - Skin: - Occasional tearing: - Breast: - Glare/light sensitivity: - NEUROLOGICAL: - Eye pain/soreness: - PSYCHIATRIC: - Chronic infection eye or lid: - ENDOCRINE: - Sties/chalazion: - HEMATOLOGICAL/LYMPHATICS - Fluctuating visual acuity: - Blood: - Tired eye: - Lymph nodes: - CARDIOVASCULAR - Swelling: - Heart: - ALLERGIC/IMMUNOLOGIC - Blood vessels: - Head allergy: - RESPIRATORY - Seasonal allergies: - Chronic bronchitis: - Hay fever symptoms: - GASTROINTESTINAL - HEADACHES: - Va - OD:sc 20/ - OS: sc 20/ - cc 20/40-1 - cc 20/30 - PH 20/ - PH 20/ - WRx: -0.25 - WRx:-1.25+0.75 X 163 +2.25 - MRx:-1.75+0.75 X 005 - MRx:-1.00+1.50 X 165 - 20/25 - 20/25 - NEAR:+2.50 - NEAR:+2.50 - J1+ - J1+ - - - - - - - External - No APD OU - Motility: Full OU - CVF: Full OU - IOP@ 1:50PM - OD 15 - OS 17 - Neuro/psych: - Pt alert and oriented x3, appropriate mood and affect - SLE: - TF: Decreased OU - Lacrimal: Healthy OU - Lids/Lashes: Debris OU; dermatochalasis upper lid ou - C/S: W/Q OU - K: Clear OU - A/C: D/Q OU - I: Flat OU - L: 1-2 +NS changes OU - DFE: 1: 55 pm - DIL: OU 2.5% louisa and 1% trop - Vit: Clear OU, - C/D: 0.2 OU, No swelling pallor or edema OU - MAC: FLAT OU - B/V: 2/3 OU - JANELLE: FLAT OU, No breaks or tears OU LHS - A/P. - 1. dermatochalasis - monitor2. nsc - pt ed; monitor3. htn w/o ret - bp control stressed; monitor4. coronary artery dz - monitor5. presbyopia, myopia, astig - new spec rxrtc 1 yr (Signed in IC-Chart by Lashell Higgins, OD on 2007-01-18 08:45:54) documented in this encounter Plan of Treatment Upcoming Encounters Date Type Department Care Team (Late st Contact Info) Description 02/09/2025 11:00 AM CARTON MAKING MACHINE OPERATOR Office Visit [facility] [address] 1st [place] [address] Sha Briggs MD [address] [place] [address] 02/25/2025 2:00 PM CARTON MAKING MACHINE OPERATOR Office Visit Heart & Vascular [address] [place] [address] Fran Prajapati MD [address] [place] [address], [place] [address] 02/27/2025 10:00 AM CARTON MAKING MACHINE OPERATOR Office Visit [facility] 502 [facility] [address] Pancho English MD [address] [place] [address], [place] [address] 05/13/2025 3:10 PM CARTON MAKING MACHINE OPERATOR [facility] [address] [facility] [place] [address] Chris Read FNP [address] [place] [address] documented as of this encounter Visit Diagnoses Not on filedocumented in this encounter Additional Health Concerns Infection Onset Date Last Indicated Resolved Time COVID-19 pending 09/19/2019 09/19/2019 09/21/2019 6:36 AM CDT COVID-19 pending 10/21/2019 10/21/2019 10/22/2019 12:10 PM CDT Mycoplasma pending 10/22/2019 10/22/2019 0 6:05 PM CDT COVID-19 pending 03/08/2020 03/08/2020 03/08/2020 11:04 AM CARTON MAKING MACHINE OPERATOR COVID-19 pending 03/08/2020 03/08/2020 03/08/2020 2:29 PM CARTON MAKING MACHINE OPERATOR COVID-19/FLU/RSV pending 05/08/2020 05/08/2020 10:52 AM CARTON MAKING MACHINE OPERATOR Mycoplasma pending 05/08/2020 05/08/2020 1:00 PM CARTON MAKING MACHINE OPERATOR documented as of this encounter Care Teams Warehouse General Laborer Relationship Specialty Start Date End Date Mark Chery MD 822 [facility] [place], [address] PCP - General Family Medicine 12/06/16 06/12/22 Pancho English MD [address] [place] [address], [place] [address] PCP - General Family Medicine 06/13/22 Mark Cehry MD [address] [facility] [place] [address] PCP - Attributed Provider-Medicare ACO 09/08/17 10/16/17 Mark Chery MD [address] [facility], [address] PCP - Attributed Provider-Medicare ACO 12/09/17 03/25/18 Taurus Jerry MD Cardiology 05/06/14 05/20/20 Celestina Higgins, RN [address] [facility] [place] [address] CCM Social Services Designee 03/21/17 05/09/17 Lorena Ariza LMSW [address] [place] [address] Traffic Rate Analyst 12/27/17 06/29/24 Merlene Wallis RN [address] [place] [address] CCM Social Services Designee 12/27/17 10/02/18 Milo Olson RN [address] [facility] [place] [address] CCM Social Services Designee 03/14/18 07/05/18 Osiris Mota, SULY [address] [facility] [place] [address] Therapy Administrative Assistant 08/25/21 09/23/21 Bernadette Bedolla RN [address] [facility] [place] [address] Therapy Administrative Assistant 06/30/24 documented as of this encounter
--- OUTSIDE RECORDS SUMMARY | 2025-01-30 18:35 | XMS_ITS | Encounter Summary ---
Author Organization [facility] Address [address] [place] [address] [place], [address] Care Team Providers Care Presales Senior Specialist Name Role Phone Taurus Jerry MD Unavailable [phone] Mark Chery MD Primary Care Provider [phone] Celestina Higgins RN Unavailable Unavaila Lorena Crenshaw [facility] [place] [place] Unavailable [phone] Merlene Wallis RN Unavailable Unavailable Milo Olson RN Unavailable Unavailable Osiris Mota RN Unavailable [phone] Pancho English MD Primary Care Provider [phone] Mark Chery MD Unavailable [phone] Mark Chery MD Unavailable [phone] Bernadette Bedolla RN Unavailable [phone] Encounter Details Date Type Department Care Team (Late st Contact Info) Description 12/10/2006 Historical Encounter HISTORICAL Provider, MD Twin [address] [facility] [address] Social History Tobacco Use Types Packs/Day Years Used Date Smoking Tobacco: Never Assessed Sex and Gender Information Value Date Recorded Sex Assigned at Not on file Legal Sex Male 6:30 AM CUSTOMER RELATIONSHIP SPECIALIST Gender Identity Not on file Sexual Orientation Not on file documented as of this encounter Plan of Treatment Upcoming Encounters Date Type Department Care Team (Late st Contact Info) Description 02/09/2025 11:00 AM CUSTOMER RELATIONSHIP SPECIALIST Office Visit [facility] [address] [place] [address] Sha Briggs MD [address] [facility] [place] [address] 02/25/2025 2:00 PM CUSTOMER RELATIONSHIP SPECIALIST Office Visit Heart & Vascular [address] [place] [address] Fran Prajapati MD [address] [place] [address], [place] [address] 02/27/2025 10:00 AM CUSTOMER RELATIONSHIP SPECIALIST Office Visit [address] [place] [address] Pancho English MD [address] [place] [address], [place] [address] 05/13/2025 3:10 PM CUSTOMER RELATIONSHIP SPECIALIST [facility] [address] [place] [address] Chris Read FNP [address] [place] [address] documented as of this encounter Visit Diagnoses Not on filedocumented in this encounter Additional Health Concerns Infection Onset Date Last Indicated Resolved Time COVID-19 pending 09/19/2019 09/19/2019 09/21/2019 6:36 AM CDT COVID-19 pending 10/21/2019 10/21/2019 10/22/2019 12:10 PM CDT Mycoplasma pending 10/22/2019 10/22/2019 0 6:05 PM CDT COVID-19 pending 03/08/2020 03/08/2020 03/08/2020 11:04 AM CUSTOMER RELATIONSHIP SPECIALIST COVID-19 pending 03/08/2020 03/08/2020 03/08/2020 2:29 PM CUSTOMER RELATIONSHIP SPECIALIST COVID-19/FLU/RSV pending 05/08/2020 05/08/2020 10:52 AM CUSTOMER RELATIONSHIP SPECIALIST Mycoplasma pending 05/08/2020 05/08/2020 1:00 PM CUSTOMER RELATIONSHIP SPECIALIST documented as of this encounter Care Teams Presales Senior Specialist Relationship Specialty Start Date End Date Mark Chery MD [address] [place] [address], [place] [address] PCP - General Family Medicine 12/06/16 06/12/22 Pancho English MD [address] [place] [address], [place] [address] PCP - General Family Medicine 06/13/22 Mark Chery MD [address] [place] [address], [place] [address] PCP - Attributed Provider-Medicare ACO 09/08/17 10/16/17 Mark Chery MD [address] [place] [address], [place] [address] PCP - Attributed Provider-Medicare ACO 12/09/17 03/25/18 Taurus Jerry MD Cardiology 05/06/14 05/20/20 Celestina Higgins, RN [address] [facility] [place] [address] CCM Auditor Supervisor 03/21/17 05/09/17 Lorena Ariza LMSW [address] [place] [address], [place] [address] Calciminer 12/27/17 06/29/24 Merlene Wallis RN [address] [place] [address], [place] [address] CCM Auditor Supervisor 12/27/17 10/02/18 Milo Olson RN [address] [place] [address], [place] [address] CCM Auditor Supervisor 03/14/18 07/05/18 Osiris Mota, SULY [address] [place] [address], [place] [address] Preventive Maintenance Engineer 08/25/21 09/23/21 Bernadette Bedolla RN [address] [place] [address], [place] [address] Preventive Maintenance Engineer 06/30/24 documented as of this encounter
--- OUTSIDE RECORDS SUMMARY | 2025-01-30 18:35 | XMS_ITS | Encounter Summary ---
Author Organization [facility] Address [address] [place] [address] Care Team Providers Care Product Management Internship Name Role Phone Taurus Jerry MD Unavailable [phone] Mark Chery MD Primary Care Provider [phone] Celestina Higgins RN Unavailable Unavaila Lorena Crenshaw [facility] Unavailable [phone] Merlene Wallis RN Unavailable Unavailable Milo Olson RN Unavailable Unavailable Osiris Mota RN Unavailable [phone] Pancho English MD Primary Care Provider [phone] Mark Chery MD Unavailable [phone] Mark Chery MD Unavailable [phone] Bernadette Bedolla RN Unavailable [phone] Encounter Details Date Type Department Care Team (Late st Contact Info) Description 12/14/2006 Historical Encounter [facility] [address] [facility] [place] [address] Enriqueta Palmer MD [address] [place] [address] [place], [phone] Social History Tobacco Use Types Packs/Day Years Used Date Smoking Tobacco: Never Assessed Sex and Gender Information Value Date Recorded Sex Assigned at Not on file Legal Sex Male 6:30 AM TERMITE RENEWAL INSPECTOR Gender Identity Not on file Sexual Orientation Not on file documented as of this encounter Miscellaneous Notes * [facility] Discharge Summary - Enriqueta Palmer MD - 12/14/2006 3:50 PM CDT [facility] NAME: Sha Bailey MR UNIT #: [id number] ROOM #: [facility] #: [id number] PATIENT TYPE: S : 1945 ATTEND PHY: Julio C Arellano MD ADMIT DATE: 12/02/2006 DISCH DATE: DISCHARGE SUMMARY Patient was admitted for indigestion like chest pain with left arm radiation with a past medical history of hyperlipidemia, poorly compliant. He was admitted to rule out myocardial infarction or ischemia. At this time, he was also started on Protonix. Throughout the stay in the hospital, there has been no reproduction of his chest pain. He has been asymptomatic and doing well. His CPKs, isoenzymes and troponins were unremarkable x3. 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 His Cardiolite stress test was read showing no convincing area of reperfusion or ischemia with a normal-appearing perfusion study with diaphragmatic attenuation and EF of 54%. At this time, I have explained the findings, recommend that the patient resume an antilipemic. We will put him on Vytorin at 20 mg p.o. q.d. as well as schedule a cardiac CTA to be done at the [facility]. Will also schedule a followup with internal medicine, given his hyperlipidemia and other risk factors, including family history. Finally, will place him on Protonix for what appears to be reflux also, which has been improved with IV Protonix. ASSESSMENT: Chest pain without evidence of ischemia and/or infarction. PLAN: 1. Given the patient's risk factors, we will proceed with cardiac CTA to be done at the [facility] with followup with internal medicine. 2. Hyperlipidemia: Initiate Vytorin 20 mg p.o. q.h.s., check lipids in exactly 30 days. 3. Chest pain relieved by Protonix. Will send to the [facility] for outpatient workup for atypical chest pain. Electronically Signed by Julio C Arellano MD 12/14/2006 15:46Julio C Arellano MD /OSI cc: Julio C Arellano MD ex: P P DOC #: [id number] This document contains information that is confidential, exempt from disclosure under applicable law and protected by patient medical privilege. documented in this encounter Plan of Treatment Upcoming Encounters Date Type Department Care Team (Late st Contact Info) Description 02/09/2025 11:00 AM TERMITE RENEWAL INSPECTOR Office Visit [facility] [address] 1st [place] [address] Sha Briggs MD [address] [place] [address] 02/25/2025 2:00 PM TERMITE RENEWAL INSPECTOR Office Visit [facility] [address] [place] [address] Fran Prajapati MD [address] [place] [address] 02/27/2025 10:00 AM TERMITE RENEWAL INSPECTOR Office Visit [address] [place] [address] Pancho English MD [address] [place] [address], [place] [address] 05/13/2025 3:10 PM TERMITE RENEWAL INSPECTOR [facility] [address] [address] [place] [address] Chris Read FNP [address] [address] [place] [address] documented as of this encounter Visit Diagnoses Not on filedocumented in this encounter Additional Health Concerns Infection Onset Date Last Indicated Resolved Time COVID-19 pending 09/19/2019 09/19/2019 09/21/2019 6:36 AM CDT COVID-19 pending 10/21/2019 10/21/2019 10/22/2019 12:10 PM CDT Mycoplasma pending 10/22/2019 10/22/2019 0 6:05 PM CDT COVID-19 pending 03/08/2020 03/08/2020 03/08/2020 11:04 AM TERMITE RENEWAL INSPECTOR COVID-19 pending 03/08/2020 03/08/2020 03/08/2020 2:29 PM TERMITE RENEWAL INSPECTOR COVID-19/FLU/RSV pending 05/08/2020 05/08/2020 10:52 AM TERMITE RENEWAL INSPECTOR Mycoplasma pending 05/08/2020 05/08/2020 1:00 PM TERMITE RENEWAL INSPECTOR documented as of this encounter Care Teams Product Management Internship Relationship Specialty Start Date End Date Mark Chery MD [address] [place] [address], [place] [address] PCP - General Family Medicine 12/06/16 06/12/22 Pancho English MD [address] [place] [address], [place] [address] PCP - General Family Medicine 06/13/22 Mark Chery MD [address] [place] [address], [place] [address] PCP - Attributed Provider-Medicare ACO 09/08/17 10/16/17 Mark Chery MD [address] [place] [address] PCP - Attributed Provider-Medicare ACO 12/09/17 03/25/18 Taurus Jerry MD Cardiology 05/06/14 05/20/20 Celestina Higgins, RN [address] [place] [address] CCM Assistant Branch Manager 03/21/17 05/09/17 Lorena Ariza, [facility] [address] [place] [address] Route Vending Machine Servicer 12/27/17 06/29/24 Merlene Wallis RN [address] [place] [facility] [address] CCM Assistant Branch Manager 12/27/17 10/02/18 Milo Olson RN [address] [place] [facility] [address] CCM Assistant Branch Manager 03/14/18 07/05/18 Osiris Mota RN [address] [place] [address] Key Punch Operator 08/25/21 09/23/21 Bernadette Bedolla RN [address] [place] [address] Key Punch Operator 06/30/24 documented as of this encounter
--- OUTSIDE RECORDS SUMMARY | 2025-01-30 18:35 | XMS_ITS | Encounter Summary ---
Author Organization [facility] Address [address] [place] [address] Care Team Providers Care Scaling Machine Operator Name Role Phone Taurus Jerry MD Unavailable [phone] Mark Chery MD Primary Care Provider [phone] Celestina Higgins RN Unavailable Unavaila Lorena Crenshaw [facility] Unavailable [phone] Merlene Wallis RN Unavailable Unavailable Milo Olson RN Unavailable Unavailable Osiris Mota RN Unavailable [phone] Pancho English MD Primary Care Provider [phone] Mark Chery MD Unavailable [phone] Mark Chery MD Unavailable [phone] Bernadette Bedolla RN Unavailable [phone] Encounter Details Date Type Department Care Team (Latest Contact Info) Description 12/10/2006 Scanned Document EXTERNAL Scan, Clinical [address] [facility] [place] [address] Social History Tobacco Use Types Packs/Day Years Used Date Smoking Tobacco: Never Assessed Sex and Gender Information Value Date Recorded Sex Assigned at Not on file Legal Sex Male 6:30 AM FIRE PROTECTION INSPECTOR Gender Identity Not on file Sexual Orientation Not on file documented as of this encounter Plan of Treatment Upcoming Encounters Date Type Department Care Team (Late st Contact Info) Description 02/09/2025 11:00 AM FIRE PROTECTION INSPECTOR Office Visit [facility] [address] 1st [place] [address] Sha Briggs MD [address] [facility] [place] [address] 02/25/2025 2:00 PM FIRE PROTECTION INSPECTOR Office Visit [facility] [address] [place] [address] Fran Prajapati MD [address] [place], [place] [address]E [facility] [place] [phone] 02/27/2025 10:00 AM FIRE PROTECTION INSPECTOR Office Visit [address] [place] [address] Pancho English MD [address] [place] [address], [place] [address] 05/13/2025 3:10 PM FIRE PROTECTION INSPECTOR [facility] [address] [place] [address] Chris Read FNP [address] [place] [address] documented as of this encounter Visit Diagnoses Not on filedocumented in this encounter Additional Health Concerns Infection Onset Date Last Indicated Resolved Time COVID-19 pending 09/19/2019 09/19/2019 09/21/2019 6:36 AM CDT COVID-19 pending 10/21/2019 10/21/2019 10/22/2019 12:10 PM CDT Mycoplasma pending 10/22/2019 10/22/2019 6:05 PM CDT COVID-19 pending 03/08/2020 03/08/2020 03/08/2020 11:04 AM FIRE PROTECTION INSPECTOR COVID-19 pending 03/08/2020 03/08/2020 03/08/2020 2:29 PM FIRE PROTECTION INSPECTOR COVID-19/FLU/RSV pending 05/08/2020 05/08/2020/2021 10:52 AM FIRE PROTECTION INSPECTOR Mycoplasma pending 05/08/2020 05/08/2020 1:00 PM FIRE PROTECTION INSPECTOR documented as of this encounter Care Teams Scaling Machine Operator Relationship Specialty Start Date End Date Mark Chery MD [address] [place] [address], [place] [address] PCP - General Family Medicine 12/06/16 06/12/22 Pancho English MD [address] [place] [address], [place] [address] PCP - General Family Medicine 06/13/22 Mark Chery MD [address] [place] [address], [place] [address] PCP - Attributed Provider-Medicare ACO 09/08/17 10/16/17 Mark Chery MD [address] [place] [address], [place] [address] PCP - Attributed Provider-Medicare ACO 12/09/17 03/25/18 Taurus Jerry MD Cardiology 05/06/14 05/20/20 Celestina Higgins, RN [address] [facility] [place] [address] CCM Receipt And Report Clerk 03/21/17 05/09/17 Lorena Ariza LMSW [address] [place] [address], [place] [address] Enrollment Management Vice President 12/27/17 06/29/24 Merlene Wallis RN [address] [place] [address], [place] [address] CCM Receipt And Report Clerk 12/27/17 10/02/18 Milo Olson RN [address] [place] [address], [place] [address] CCM Receipt And Report Clerk 03/14/18 07/05/18 Osiris Mota, SULY [address] [place] [address], [place] [address] Education Professional 08/25/21 09/23/21 Bernadette Bedolla RN [address] [place] [address], [place] [address] Education Professional 06/30/24 documented as of this encounter
--- OUTSIDE RECORDS SUMMARY | 2025-01-30 18:35 | XMS_ITS | Encounter Summary ---
Author Organization [facility] Address [address] [place], [address] Care Team Providers Care Rn Acute Name Role Phone Taurus Jerry MD Unavailable [phone] Mark Chery MD Primary Care Provider [phone] Celestina Higgins RN Unavailable Unavaila ble Lorena Ariza [facility] Unavailable [phone] Merlene Wallis RN Unavailable Unavailable Milo Olson RN Unavailable Unavailable Osiris Mota RN Unavailable [phone] Pancho English MD Primary Care Provider [phone] Mark Chery MD Unavailable [phone] Mark Chery MD Unavailable [phone] Bernadette Bedolla RN Unavailable [phone] Encounter Details Date Type Department Care Team (Late st Contact Info) Description 01/11/2007 Historical Encounter HISTORICAL Milind Garsia, ACNP [address] [facility], [address] Social History Tobacco Use Types Packs/Day Years Used Date Smoking Tobacco: Never Assessed Sex and Gender Information Value Date Recorded Sex Assigned at Not on file Legal Sex Male 6:30 AM SYSTEMS TESTING LABORATORY TECHNICIAN Gender Identity Not on file Sexual Orientation Not on file documented as of this encounter Procedure Notes * Milind Garsia, ACIDIZER - 01/11/2007 8:51 AM CDT [facility] Treadmill DATE OF SERVICE: 01/09/2007 PATIENT NAME: PASCALE CEJA : 1945 ORDERING PHYSICIAN: Milind Garsia NP INDICATION: Chest pains, status post stenting of the LAD. PROCEDURES: Using a Chau II protocol Mr. Ceja exercised a total of 6 minutes with a maximum heart rate of 150 beats minute with target heart rate of 150 beats a minute. He reached this using moderate workload. During exercise, there were no ST-T wave changes, no ectopy and no extremes of heart rate. He had no anginal symptoms with exercise. Baseline blood pressure is 130/80. Post-exercise blood pressure 180/60. IMPRESSION: 1. Normal exercise treadmill stress test with no electrocardiographic evidence of ischemia. 2. Appropriate blood pressure response with exercise. Milind Garsia NP TR: FILIBERTO Conf #: [id number] Dictation ID: [id number] cc: (Signed in IC-Chart by JAIME Mc ANP on 2007-01-11 12:16:19) documented in this encounter Plan of Treatment Upcoming Encounters Date Type Department Care Team (Late st Contact Info) Description 02/09/2025 11:00 AM SYSTEMS TESTING LABORATORY TECHNICIAN Office Visit [facility] [address] [place] 1[address] [place] [address] Pascale Briggs MD [address] [facility] [place], [address] 02/25/2025 2:00 PM SYSTEMS TESTING LABORATORY TECHNICIAN Office Visit [facility] [address] [place] [address] Fran Prajapati MD [address] [facility] [place] [address] 02/27/2025 10:00 AM SYSTEMS TESTING LABORATORY TECHNICIAN Office Visit [address] [place] [address] Pancho English MD [address] [facility] [place] [address] 05/13/2025 3:10 PM SYSTEMS TESTING LABORATORY TECHNICIAN [facility] [address] [place] [address] Chris Raed FNP [address] [place] [address] documented as of this encounter Visit Diagnoses Not on filedocumented in this encounter Additional Health Concerns Infection Onset Date Last Indicated Resolved Time COVID-19 pending 09/19/2019 09/19/2019 09/21/2019 6:36 AM CDT COVID-19 pending 10/21/2019 10/21/2019 10/22/2019 12:10 PM CDT Mycoplasma pending 10/22/2019 10/22/2019 0 6:05 PM CDT COVID-19 pending 03/08/2020 03/08/2020 03/08/2020 11:04 AM SYSTEMS TESTING LABORATORY TECHNICIAN COVID-19 pending 03/08/2020 03/08/2020 03/08/2020 2:29 PM SYSTEMS TESTING LABORATORY TECHNICIAN COVID-19/FLU/RSV pending 05/08/2020 05/08/2020 10:52 AM SYSTEMS TESTING LABORATORY TECHNICIAN Mycoplasma pending 05/08/2020 05/08/2020 1:00 PM SYSTEMS TESTING LABORATORY TECHNICIAN documented as of this encounter Care Teams Rn Acute Relationship Specialty Start Date End Date Mark Chery MD [address] [place] [address] PCP - General Family Medicine 12/06/16 06/12/22 Pancho English MD [address] [place] [address], [address] PCP - General Family Medicine 06/13/22 Mark Chery MD [address] [place] [address], [place] [address] PCP - Attributed Provider-Medicare ACO 09/08/17 10/16/17 Mark Chery MD [address] [place] [address], [place] [address] PCP - Attributed Provider-Medicare ACO 12/09/17 03/25/18 Taurus Jerry MD Cardiology 05/06/14 05/20/20 Celestina Higgins, RN [address] [place] [address] CCM Employee Operations Examiner 03/21/17 05/09/17 Lorena Ariza [facility] [address] [place] [place] [address] Customs Guard 12/27/17 06/29/24 Merlene Wallis, SULY [address] [place] [place] [address] CCM Employee Operations Examiner 12/27/17 10/02/18 Milo Olson RN [address] [place] [place] [address] CCM Employee Operations Examiner 03/14/18 07/05/18 Osiris Mota, SULY [address] [place] [place] [address] Platform Loader 08/25/21 09/23/21 Bernadette Bedolla, RN [address] [place] [address] Platform Loader 06/30/24 documented as of this encounter
--- OUTSIDE RECORDS SUMMARY | 2025-01-30 18:35 | XMS_ITS | Encounter Summary ---
Author Organization [facility] Address [address] [place] [address] [place], [address] Care Team Providers Care College Advisor Name Role Phone Taursu Jerry MD Unavailable [phone] Mark Chery MD Primary Care Provider [phone] Celestina Higgins RN Unavailable Unavaila Lorena Crenshaw [facility] Unavailable [phone] Merlene Wallis RN Unavailable Unavailable Milo Olson RN Unavailable Unavailable Osiris Mota RN Unavailable [phone] Pancho English MD Primary Care Provider [phone] Mark Chery MD Unavailable [phone] Mark Chery MD Unavailable [phone] Bernadette Bedolla RN Unavailable [phone] Encounter Details Date Type Department Care Team (Late st Contact Info) Description 01/01/2007 Historical Encounter HISTORICAL Provider, MD [facility] [address] [facility] [place] [address] Social History Tobacco Use Types Packs/Day Years Used Date Smoking Tobacco: Never Assessed Sex and Gender Information Value Date Recorded Sex Assigned at Not on file Legal Sex Male 6:30 AM STUDENT ADMISSIONS CLERK Gender Identity Not on file Sexual Orientation Not on file documented as of this encounter Plan of Treatment Upcoming Encounters Date Type Department Care Team (Late st Contact Info) Description 02/09/2025 11:00 AM STUDENT ADMISSIONS CLERK Office Visit [facility] [address] 1st [place] [address] Sha Briggs MD [address] [place] [address] 02/25/2025 2:00 PM STUDENT ADMISSIONS CLERK Office Visit [facility] [address] [place] [address] Fran Prajapati MD [address] [place] [address], [place] [address] 02/27/2025 10:00 AM STUDENT ADMISSIONS CLERK Office Visit [address] [place] [address] Pancho English MD [address] [place] [address], [place] [address] 05/13/2025 3:10 PM STUDENT ADMISSIONS CLERK [facility] [address] [place] [address] Chris Read FNP [address] [place] [address] documented as of this encounter Visit Diagnoses Not on filedocumented in this encounter Additional Health Concerns Infection Onset Date Last Indicated Resolved Time COVID-19 pending 09/19/2019 09/19/2019 09/21/2019 6:36 AM CDT COVID-19 pending 10/21/2019 10/21/2019 10/22/2019 12:10 PM CDT Mycoplasma pending 10/22/2019 10/22/2019 0 6:05 PM CDT COVID-19 pending 03/08/2020 03/08/2020 03/08/2020 11:04 AM STUDENT ADMISSIONS CLERK COVID-19 pending 03/08/2020 03/08/2020 03/08/2020 2:29 PM STUDENT ADMISSIONS CLERK COVID-19/FLU/RSV pending 05/08/2020 05/08/2020 10:52 AM STUDENT ADMISSIONS CLERK Mycoplasma pending 05/08/2020 05/08/2020 1:00 PM STUDENT ADMISSIONS CLERK documented as of this encounter Care Teams College Advisor Relationship Specialty Start Date End Date Mark Chery MD [address] [place] [address], [place] [address] PCP - General Family Medicine 12/06/16 06/12/22 Pancho English MD [address] [place] [address], [place] [address] PCP - General Family Medicine 06/13/22 Mark Chery MD [address] [place] [address], [place] [address] PCP - Attributed Provider-Medicare ACO 09/08/17 10/16/17 Mark Chery MD [address] [place] [address], [place] [address] PCP - Attributed Provider-Medicare ACO 12/09/17 03/25/18 Taurus Jerry MD Cardiology 05/06/14 05/20/20 Celestina Higgins, RN [address] [place] [address] CCM Purchasing And Claims Supervisor 03/21/17 05/09/17 Lorena Ariza LMSW [address] [place] [address], [place] [address] Technical Aide 12/27/17 06/29/24 Merlene Wallis RN [address] [place] [address], [place] [address] CCM Purchasing And Claims Supervisor 12/27/17 10/02/18 Milo Olson RN [address] [place] [address], [place] [address] CCM Purchasing And Claims Supervisor 03/14/18 07/05/18 Osiris Mota, SULY [address] [place] [address], [place] [address] Small Package And Bundle Sorter Clerk 08/25/21 09/23/21 Bernadette Bedolla RN [address] [place] [address], [place] [address] Small Package And Bundle Sorter Clerk 06/30/24 documented as of this encounter
--- OUTSIDE RECORDS SUMMARY | 2025-01-30 18:35 | XMS_ITS | Encounter Summary ---
Author Organization [facility] Address [address] [place] [address] Care Team Providers Care Porcelain Enamel Sprayer Name Role Phone Taurus Jerry MD Unavailable [phone] Mark Chery MD Primary Care Provider [phone] Celestina Higgins RN Unavailable Unavaila Lorena Crenshaw [facility] Unavailable [phone] Merlene Wallis RN Unavailable Unavailable Milo Olson RN Unavailable Unavailable Osiris Mota RN Unavailable [phone] Pancho English MD Primary Care Provider [phone] Mark Chery MD Unavailable [phone] Mark Chery MD Unavailable [phone] Bernadette Bedolla RN Unavailable [phone] Encounter Details Date Type Department Care Team (Late st Contact Info) Description 12/07/2006 Historical Encounter [facility] Care Services [address] [place] [address] Julio C Arellano MD Social History Tobacco Use Types Packs/Day Years Used Date Smoking Tobacco: Never Assessed Sex and Gender Information Value Date Recorded Sex Assigned at Not on file Legal Sex Male 6:30 AM LOGISTICS TEAM LEAD Gender Identity Not on file Sexual Orientation Not on file documented as of this encounter Miscellaneous Notes * Imaging - Julio C Arellano MD - 12/07/2006 12:00 AM CDT [facility] CT Report PATIENT NAME: PASCALE CEJA : 1945 REFERRING PHYSICIAN: Julio C Arellano MD ORDERING PHYSICIAN: Julio C Arellano MD CARDIAC CTA: DIAGNOSIS: Chest pain. INTERPRETATION: Cardiac size and contractility are normal. The ejection fraction is approximately 70%. The calcium score is 39 with calcification involving the left anterior descending and circumflex arteries. This places the patient in the 35th percentile rank by age for extent of atherosclerosis representing mild plaque burden with a moderate cardiovascular event risk. LEFT MAIN CORONARY ARTERY: Normal. LEFT ANTERIOR DESCENDING ARTERY: There is mixed calcific and soft plaque present in the proximal vessel with a focal severe stenosis. A diagonal branch is free of disease. CIRCUMFLEX ARTERY: This artery is dominant in distribution. There is mild nonobstructive plaque in the proximal vessel. RIGHT CORONARY ARTERY: This artery is small and nondominant and is free of disease. CONCLUSION: 1. 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 2. 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 3. Normal left ventricular function. RECOMMENDATIONS: Recommend cardiac catheterization. Roddy Gandhi MD TR: THUY Conf #: [id number] Dictation ID: [id number] cc:Tony Pavon MD (Signed in IC-Chart by Roddy Gandhi MD on Dec 10 2006 8:27AM) (Reviewed in IC-Chart by Julio C Arellano MD on 06/05/2007 2:16:06 PM) documented in this encounter Plan of Treatment Upcoming Encounters Date Type Department Care Team (Late st Contact Info) Description 02/09/2025 11:00 AM LOGISTICS TEAM LEAD Office Visit [facility] Urology [address] [place] [address] [place] [address] Pascale Briggs MD [address] [place] [address], [place] [phone] 02/25/2025 2:00 PM LOGISTICS TEAM LEAD Office Visit Heart & Vascular [address] [place] [address], [place] [address] Fran Prajapati MD [address] [place] [address] 02/27/2025 10:00 AM LOGISTICS TEAM LEAD Office Visit [address] [place] [address] Pancho English MD [address] [place] [address], [place] [address] 05/13/2025 3:10 PM LOGISTICS TEAM LEAD [facility] [address] [place] [address] Chris Read FNP [address] [place] [address] documented as of this encounter Visit Diagnoses Not on filedocumented in this encounter Additional Health Concerns Infection Onset Date Last Indicated Resolved Time COVID-19 pending 09/19/2019 09/19/2019 09/21/2019 6:36 AM CDT COVID-19 pending 10/21/2019 10/21/2019 10/22/2019 12:10 PM CDT Mycoplasma pending 10/22/2019 10/22/2019 0 6:05 PM CDT COVID-19 pending 03/08/2020 03/08/2020 03/08/2020 11:04 AM LOGISTICS TEAM LEAD COVID-19 pending 03/08/2020 03/08/2020 03/08/2020 2:29 PM LOGISTICS TEAM LEAD COVID-19/FLU/RSV pending 05/08/2020 05/08/2020 10:52 AM LOGISTICS TEAM LEAD Mycoplasma pending 05/08/2020 05/08/202005/08/202 1 1:00 PM LOGISTICS TEAM LEAD documented as of this encounter Care Teams Porcelain Enamel Sprayer Relationship Specialty Start Date End Date Mark Chery MD [address] [place] [address], [address] PCP - General Family Medicine 12/06/16 06/12/22 Pancho English MD [address] [place] [address], [place] [address] PCP - General Family Medicine 06/13/22 Mark Chery MD [address] [place] [address], [address] PCP - Attributed Provider-Medicare ACO 09/08/17 10/16/17 Mark Chery MD [address] [place] [address], [place] [address] PCP - Attributed Provider-Medicare ACO 12/09/17 03/25/18 Taurus Jerry MD Cardiology 05/06/14 05/20/20 Celestina Higgins RN [address] [facility] [place] [address] CCM Talent Development Consultant 03/21/17 05/09/17 Lorena Ariza LMSW [address] [place] [address] Aerospace Engineer 12/27/17 06/29/24 Merlene Wallis RN [address] [place] [address] CCM Talent Development Consultant 12/27/17 10/02/18 Milo Olson RN [address] [place] [address] CCM Talent Development Consultant 03/14/18 07/05/18 Osiris Mota, SULY [address] [place] [address], [place] [address] Buttonhole Maker 08/25/21 09/23/21 Bernadette Bedolla RN [address] [place] [address], [place] [address] Buttonhole Maker 06/30/24 documented as of this encounter
--- OUTSIDE RECORDS SUMMARY | 2025-01-30 18:35 | XMS_ITS | Encounter Summary ---
Author Organization [facility] Address [address] [address] Care Team Providers Care Senior Drafter Name Role Phone Taurus Jerry MD Unavailable [phone] Mark Chery MD Primary Care Provider [phone] Celestina Higgins RN Unavailable Unavaila Lorena Crenshaw [facility] Unavailable [phone] Merlene Wallis RN Unavailable Unavailable Milo Olson RN Unavailable Unavailable Osiris Mota RN Unavailable [phone] Pancho English MD Primary Care Provider [phone] Mark Chery MD Unavailable [phone] Mark Chery MD Unavailable [phone] Bernadette Bedolla RN Unavailable [phone] Encounter Details Date Type Department Care Team (Latest Contact Info) Description 07/20/2016 Scanned Document EXTERNAL Scan, Clinical [address] [facility] [place] [address] Social History Tobacco Use Types Packs/Day Years Used Date Smoking Tobacco: Former Smokeless Tobacco: Current Chew Alcohol Use Standard Drinks/Week Comments No 0 (1 standard drink = 0.6 oz pur e alcohol) Sex and Gender Information Value Date Recorded Sex Assigned at Not on file Legal Sex Male 6:30 AM OFFICE 365 CONSULTANT Gender Identity Not on file Sexual Orientation [...] Entry Date Author No 01/28/2014 8:09 PM OFFICE 365 CONSULTANT documented in this encounter Plan of Treatment Upcoming Encounters Date Type Department Care Team (Late st Contact Info) Description 02/09/2025 11:00 AM OFFICE 365 CONSULTANT Office Visit [facility] Urology [address] [place] [address] 1st [place] [address] Sha Briggs MD [address] [place] [address], [place] [address] 02/25/2025 2:00 PM OFFICE 365 CONSULTANT Office Visit [facility] Vascular [address] [place] [address], [place] [address] Fran Prajapati MD [address] [place] [address] 02/27/2025 10:00 AM OFFICE 365 CONSULTANT Office Visit [address] [place] [address] Panhco English MD [address] [place] [address], [place] [phone] 05/13/2025 3:10 PM OFFICE 365 CONSULTANT [facility] Visit [facility] [address] [address] [address] [place] [address] ReadChris, UTILITY BILL COLLECTION CLERK [address] [facility] [address] [facility] [place], [address] documented as of this encounter Visit Diagnoses Not on filedocumented in this encounter Additional Health Concerns Infection Onset Date Last Indicated Resolved Time COVID-19 pending 09/19/2019 09/19/2019 09/21/2019 6:36 AM CDT COVID-19 pending 10/21/2019 10/21/2019 10/22/2019 12:10 PM CDT Mycoplasma pending 10/22/2019 10/22/2019 0 6:05 PM CDT COVID-19 pending 03/08/2020 03/08/2020 03/08/2020 11:04 AM OFFICE 365 CONSULTANT COVID-19 pending 03/08/2020 03/08/2020 03/08/2020 2:29 PM OFFICE 365 CONSULTANT COVID-19/FLU/RSV pending 05/08/2020 05/08/2020 10:52 AM OFFICE 365 CONSULTANT Mycoplasma pending 05/08/2020 05/08/2020 1:00 PM OFFICE 365 CONSULTANT documented as of this encounter Care Teams Senior Drafter Relationship Specialty Start Date End Date Mark Chery MD [address] [place] [address], [place] [address] PCP - General Family Medicine 12/06/16 06/12/22 Pancho English MD [address] [place] [address] PCP - General Family Medicine 06/13/22 Mark Chery MD [address] [place] [address], [place] [address] PCP - Attributed Provider-Medicare ACO 09/08/17 10/16/17 Mark Chery MD [address] , [place] [address] PCP - Attributed Provider-Medicare ACO 12/09/17 03/25/18 Taurus Jerry MD Cardiology 05/06/14 05/20/20 Celestina Higgins, RN [address] , [place] [address] CCM Plaster Mold Maker 03/21/17 05/09/17 Lorena Ariza [facility] [address] [place] [address] Heating And Ventilating Drafter 12/27/17 06/29/24 Merlene Wallis RN [address] [place] [address], [place] [address] CCM Plaster Mold Maker 12/27/17 10/02/18 Milo Olson RN [address] [place] [address] CCM Plaster Mold Maker 03/14/18 07/05/18 Osiris Mota, RN [address] [place] [address], [place] [address] Safety Inspector 08/25/21 09/23/21 Bernadette Bedolla, RN [address] [place] [address] Safety Inspector 06/30/24 documented as of this encounter
--- OUTSIDE RECORDS SUMMARY | 2025-01-30 18:35 | XMS_ITS | Encounter Summary ---
Author Organization [facility] Address [address] [place] [address] Care Team Providers Care Waiter/Waitress Tavern Name Role Phone Taurus Jerry MD Unavailable [phone] Mark Chery MD Primary Care Provider [phone] Celestina Higgins RN Unavailable Unavaila Lorena Crenshaw [facility] Unavailable [phone] Merlene Wallis RN Unavailable Unavailable Milo Olson RN Unavailable Unavailable Osiris Mota RN Unavailable [phone] Pancho English MD Primary Care Provider [phone] Mark Chery MD Unavailable [phone] Mark Chery MD Unavailable [phone] Bernadette Bedolla RN Unavailable [phone] Encounter Details Date Type Department Care Team (Latest Contact Info) Description 01/09/2007 Scanned Document EXTERNAL Scan, Clinical [address] [facility] [address] Social History Tobacco Use Types Packs/Day Years Used Date Smoking Tobacco: Never Assessed Sex and Gender Information Value Date Recorded Sex Assigned at Not on file Legal Sex Male 6:30 AM FRAMING CONSULTANT Gender Identity Not on file Sexual Orientation Not on file documented as of this encounter Plan of Treatment Upcoming Encounters Date Type Department Care Team (Late st Contact Info) Description 02/09/2025 11:00 AM FRAMING CONSULTANT Office Visit [facility] Urology [address] 1st [place] [address] Sha Briggs MD [address] [facility] [place] [address] 02/25/2025 2:00 PM FRAMING CONSULTANT Office Visit Heart & Vascular [address] [place] [address] Fran Prajapati MD [address] [place], [place] [address]E [facility] [place] [address] 02/27/2025 10:00 AM FRAMING CONSULTANT Office Visit [address] [place] [phone] Pancho English MD [address] [place] [address], [place] [address] 05/13/2025 3:10 PM FRAMING CONSULTANT [facility] Visit [facility] [address] [place] [address] Chris Read FNP [address] [place] [address] documented as of this encounter Visit Diagnoses Not on filedocumented in this encounter Additional Health Concerns Infection Onset Date Last Indicated Resolved Time COVID-19 pending 09/19/2019 09/19/2019 09/21/2019 6:36 AM CDT COVID-19 pending 10/21/2019 10/21/2019 10/22/2019 12:10 PM CDT Mycoplasma pending 10/22/2019 10/22/2019 6:05 PM CDT COVID-19 pending 03/08/2020 03/08/2020 03/08/2020 11:04 AM FRAMING CONSULTANT COVID-19 pending 03/08/2020 03/08/2020 03/08/2020 2:29 PM FRAMING CONSULTANT COVID-19/FLU/RSV pending 05/08/2020 05/08/2020/2021 10:52 AM FRAMING CONSULTANT Mycoplasma pending 05/08/2020 05/08/2020 1:00 PM FRAMING CONSULTANT documented as of this encounter Care Teams Waiter/Waitress Tavern Relationship Specialty Start Date End Date Mark Chery MD [address] [place] [address], [place] [address] PCP - General Family Medicine 12/06/16 06/12/22 Pancho English MD [address] [place] [address], [place] [address] PCP - General Family Medicine 06/13/22 Mark Chery MD [address] [place] [address], [place] [address] PCP - Attributed Provider-Medicare ACO 09/08/17 10/16/17 Mark Chery MD [address] [place] [address], [place] [address] PCP - Attributed Provider-Medicare ACO 12/09/17 03/25/18 Taurus Jerry MD Cardiology 05/06/14 05/20/20 Celestina Higgins, RN [address] [facility] [place] [address] CCM Pie Filling Mixer 03/21/17 05/09/17 Lorena Ariza LMSW [address] [place] [address], [place] [address] Photo Equipment Technician 12/27/17 06/29/24 Merlene Wallis RN [address] [place] [address], [place] [address] CCM Pie Filling Mixer 12/27/17 10/02/18 Milo Olson RN [address] [place] [address], [place] [address] CCM Pie Filling Mixer 03/14/18 07/05/18 Osiris Mota, SULY [address] [place] [address], [place] [address] Head Mva Reactor Operator 08/25/21 09/23/21 Bernadette Bedolla RN [address] [place] [address], [place] [address] Head Mva Reactor Operator 06/30/24 documented as of this encounter
--- OUTSIDE RECORDS SUMMARY | 2025-01-30 18:35 | XMS_ITS | Encounter Summary ---
Author Organization [facility] Address [address] [place] [address] Care Team Providers Care Uniforms Sales Representative Name Role Phone Taurus Jerry MD Unavailable [phone] Mark Chery MD Primary Care Provider [phone] Celestina Higgins RN Unavailable Unavaila ble Lorena Ariza [facility] Unavailable [phone] Merlene Wallis RN Unavailable Unavailable Milo Olson RN Unavailable Unavailable Osiris Mota RN Unavailable [phone] Pancho English MD Primary Care Provider [phone] Mark Chery MD Unavailable [phone] Mark Chery MD Unavailable [phone] Bernadette Bedolla RN Unavailable [phone] Encounter Details Date Type Department Care Team (Late st Contact Info) Description 12/18/2006 Historical Encounter [facility] Internal Medicine [facility] [place] [address] Akbar Pavon MD [address] [place] [address], [place] [address] Social History Tobacco Use Types Packs/Day Years Used Date Smoking Tobacco: Never Assessed Sex and Gender Information Value Date Recorded Sex Assigned at Not on file Legal Sex Male 6:30 AM EXPLOSIVE SPECIALIST Gender Identity Not on file Sexual Orientation Not on file documented as of this encounter Miscellaneous Notes * Office Visit - Akbar Pavon MD - 12/18/2006 8:38 AM CDT Department of Internal Medicine Office Visit DATE OF SERVICE: 12/10/2006 PATIENT NAME: PASCALE BAILEY : 1945 SUBJECTIVE: This 61-year-old man was hospitalized for chest pain and had a negative Cardiolite study. CT scan done three days ago demonstrated a focal severe stenosis of the proximal LAD. He denies any chest pain since hospitalization, at which time of discharge was on a PPI, aspirin, and Vytorin for hyperlipidemia. The patient does not have a regular physician. PAST MEDICAL HISTORY: Remarkable for hyperlipidemia, denies hypertension and said it was normal in the hospital and review demonstrates that indeed it was. SOCIAL HISTORY: He has not smoked for many years, uses no alcohol. Still chews tobacco. He is . FAMILY HISTORY: Positive for hyperlipidemia. REVIEW OF SYSTEMS: No myalgias, no exertional chest pain. History of hepatitis remotely. Kidney stone in 1962. No abdominal pain or hematuria. PHYSICAL EXAMINATION: GENERAL: The patient in no apparent distress or discomfort. VITAL SIGNS: Blood pressure is 146/92, heart rate 72, temperature 97.3, weight 214, respirations nonlabored. LUNGS: Clear. HEART: Regular rate and rhythm without murmurs, gallops, rubs. ASSESSMENT: 1. Coronary disease, verified by CTA of chest, see above. 2. Hyperlipidemia, now on statin drug therapy. 3. White coat syndrome. 4. Obesity. PLAN: 1. He will be seen by Dr. Jerry in cardiology today so the cardiac catheterization can be arranged. 2. Continue the present medications and Dr. Jerry and I discussed beta-verito therapy which I will defer to him. 3. The patient will return seem me after cardiology has evaluated and treated. 4. We will need follow-up lipids in the next couple of months. Akbar Pavon MD TR: ARIELA/ROSALINE Conf #: [id number] Dictation ID: [id number] cc: (Signed in IC-Chart by Akbar Pavon MD on 2006-12-24 11:27:10) documented in this encounter Plan of Treatment Upcoming Encounters Date Type Department Care Team (Late st Contact Info) Description 02/09/2025 11:00 AM EXPLOSIVE SPECIALIST Office Visit [facility] Urology [address] 1st [place] [address] Pascale Briggs MD [address] [place] [address], [place] [address] 02/25/2025 2:00 PM EXPLOSIVE SPECIALIST Office Visit Heart & Vascular [address] [place] [address], [place] [address] Fran Prajapati MD [address] [place] [address], [place] [address] 02/27/2025 10:00 AM EXPLOSIVE SPECIALIST Office Visit [address] [place] [address] Pancho English MD [address] [place] [address], [place] [address] 05/13/2025 3:10 PM EXPLOSIVE SPECIALIST [facility] [address] [place] [address] Chris Read FNP [address] [facility] [place] [address] documented as of this encounter Visit Diagnoses Not on filedocumented in this encounter Additional Health Concerns Infection Onset Date Last Indicated Resolved Time COVID-19 pending 09/19/2019 09/19/2019 09/21/2019 6:36 AM CDT COVID-19 pending 10/21/2019 10/21/2019 10/22/2019 12:10 PM CDT Mycoplasma pending 10/22/2019 10/22/2019 0 6:05 PM CDT COVID-19 pending 03/08/2020 03/08/2020 03/08/2020 11:04 AM EXPLOSIVE SPECIALIST COVID-19 pending 03/08/2020 03/08/2020 03/08/2020 2:29 PM EXPLOSIVE SPECIALIST COVID-19/FLU/RSV pending 05/08/2020 05/08/2020 10:52 AM EXPLOSIVE SPECIALIST Mycoplasma pending 05/08/2020 05/08/2020 1:00 PM EXPLOSIVE SPECIALIST documented as of this encounter Care Teams Uniforms Sales Representative Relationship Specialty Start Date End Date Mark Chery MD [address] [place] [address], [place] [address] PCP - General Family Medicine 12/06/16 06/12/22 Pancho English MD [address] [place] [address], [place] [address] PCP - General Family Medicine 06/13/22 Mark Chery MD [address] [place] [address], [place] [address] PCP - Attributed Provider-Medicare ACO 09/08/17 10/16/17 Mark Chery MD [address] [place] [address], [place] [address] PCP - Attributed Provider-Medicare ACO 12/09/17 03/25/18 Taurus Jerry MD Cardiology 05/06/14 05/20/20 Celestina Higgins, RN [address] [place] [address] CCM Lube Worker 03/21/17 05/09/17 Lorena Ariza, [facility] [address] [address] Trucking Supervisor 12/27/17 06/29/24 Merlene Wallis RN [address] [address] CCM Lube Worker 12/27/17 10/02/18 Milo Olson RN [address] [address] CCM Lube Worker 03/14/18 07/05/18 Osiris Mota, SULY [address] [address] Bone Drier 08/25/21 09/23/21 Bernadette Bedolla, RN [address] [place] [address] Bone Drier 06/30/24 documented as of this encounter
--- OUTSIDE RECORDS SUMMARY | 2025-01-30 18:35 | XMS_ITS | Encounter Summary ---
Author Organization [facility] Address [address] [place] [address] Care Team Providers Care Product Marketing Intern Name Role Phone Taurus Jerry MD Unavailable [phone] Mark Chery MD Primary Care Provider [phone] Celestina Higgins RN Unavailable Unavaila Lorena Crenshaw [facility] Unavailable [phone] Merlene Wallis RN Unavailable Unavailable Milo Olson RN Unavailable Unavailable Osiris Mota RN Unavailable [phone] Pancho English MD Primary Care Provider [phone] Mark Chery MD Unavailable [phone] Mark Chery MD Unavailable [phone] Bernadette Bedolla RN Unavailable [phone] Encounter Details Date Type Department Care Team (Late st Contact Info) Description 01/02/2007 Historical Encounter Heart & Vascular [address] [facility] [place] [address] Taurus Jerry MD [address] [facility] [address] [facility] [place] [address] Social History Tobacco Use Types Packs/Day Years Used Date Smoking Tobacco: Never Assessed Sex and Gender Information Value Date Recorded Sex Assigned at Not on file Legal Sex Male 6:30 AM PUBLIC AREA SUPERVISOR Gender Identity Not on file Sexual Orientation Not on file documented as of this encounter Miscellaneous Notes * Office Visit - Taurus Jerry MD - 01/02/2007 11:38 AM CDT [facility] Office Visit DATE OF SERVICE: 01/01/2007 PATIENT NAME: PASCALE CEJA : 1945 REASON FOR FOLLOW UP: Status post balloon angioplasty and stenting of the proximal left anterior descending coronary artery using a Cypher drug-eluting stent. HISTORY OF PRESENT ILLNESS: The patient is a very pleasant 61-year-old man with coronary artery disease who presented to our clinic with symptoms suggestive of angina. He had undergone a cardiac CTA at our clinic and was therefore referred by Dr. Tony Pavon for further evaluation after that study revealed a high-grade proximal LAD stenosis. He was taken to the cardiac catheterization laboratory and underwent an elective balloon angioplasty and stenting with placement of a Cypher drug-eluting stent. He was discharged home in good condition with no complications following the procedure. He presents today for routine follow up and is doing well with much less shortness of breath and no complaints of chest pain. PAST MEDICAL, PAST SURGICAL, SOCIAL, AND FAMILY HISTORY: Unchanged from prior. CURRENT MEDICATIONS: 1. Aspirin 500 mg p.o. q. day. 2. Lipitor 40 mg p.o. q. day. 3. Plavix 75 mg p.o. q. day. 4. Protonix 40 mg p.o. q. day. 5. Toprol-XL 50 mg p.o. q. day. PHYSICAL EXAM: VITAL SIGNS: Blood pressure 152/80. Pulse 70. Respiratory rate 12 to 14. GENERAL: Well-developed, well-nourished, man in no apparent distress. CARDIAC: Regular rate and rhythm with no murmurs, gallops or rubs. LUNGS: Clear to auscultation bilaterally with no wheezes, rales or rhonchi. ABDOMEN: Soft, nontender, and nondistended with no palpable mass. EXT: Warm and well perfused with no cyanosis, clubbing or edema. DATA REVIEW: As noted in the HPI. IMPRESSION: 1. Coronary artery disease with no recurrent angina. 2. Hypertension uncontrolled. 3. Obesity. 4. Family history of coronary disease (patient is adopted and did show me a letter in clinic today about his family history which includes premature atherosclerotic vascular disease). PLAN: 1. We will increase his Toprol-XL to 100 mg p.o. q. day. 2. We will schedule follow up with us with treadmill exercise test and fasting lipids in approximately two to three weeks. 3. 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 Until that time, the patient should refrain from driving. Taurus Jerry MD TR: BTR/LORIE Conf #: [id number] Dictation ID: [id number] cc: (Signed in IC-Chart by Taurus Jerry MD on 2007-01-03 12:25:08) documented in this encounter Plan of Treatment Upcoming Encounters Date Type Department Care Team (Late st Contact Info) Description 02/09/2025 11:00 AM PUBLIC AREA SUPERVISOR Office Visit [facility] Urology [address] [place] [address] 1st [place] [address] Pascale Briggs MD [address] [place] [address] 02/25/2025 2:00 PM PUBLIC AREA SUPERVISOR Office Visit Heart & Vascular [address] [place] [address], [place] [address] Fran Prajapati MD [address] [place] [address] 02/27/2025 10:00 AM PUBLIC AREA SUPERVISOR Office Visit [address] [place] [address] Pancho English MD [address] [place] [address], [place] [address] 05/13/2025 3:10 PM PUBLIC AREA SUPERVISOR [facility] [address] [place], [address] Chris Read, ROBER [address] [facility] [place], [address] documented as of this encounter Visit Diagnoses Not on filedocumented in this encounter Additional Health Concerns Infection Onset Date Last Indicated Resolved Time COVID-19 pending 09/19/2019 09/19/2019 09/21/2019 6:36 AM CDT COVID-19 pending 10/21/2019 10/21/2019 10/22/2019 12:10 PM CDT Mycoplasma pending 10/22/2019 10/22/2019 0 6:05 PM CDT COVID-19 pending 03/08/2020 03/08/2020 03/08/2020 11:04 AM PUBLIC AREA SUPERVISOR COVID-19 pending 03/08/2020 03/08/2020 03/08/2020 2:29 PM PUBLIC AREA SUPERVISOR COVID-19/FLU/RSV pending 05/08/2020 05/08/2020 10:52 AM PUBLIC AREA SUPERVISOR Mycoplasma pending 05/08/2020 05/08/2020 1:00 PM PUBLIC AREA SUPERVISOR documented as of this encounter Care Teams Product Marketing Intern Relationship Specialty Start Date End Date Mark Chery MD 2 [facility] [address] PCP - General Family Medicine 12/06/16 06/12/22 Pancho English MD [address] [place] [address] [place], [address] PCP - General Family Medicine 06/13/22 Mark Chery MD [address] [place] [address], [place] [address] PCP - Attributed Provider-Medicare ACO 09/08/17 10/16/17 Mark Chery MD 822 [facility], [address] PCP - Attributed Provider-Medicare ACO 12/09/17 03/25/18 Taurus Jerry MD Cardiology 05/06/14 05/20/20 Celestina Higgins, RN 8[address] [facility], [address] CCM Test Kitchen Home Economist 03/21/17 05/09/17 Lorena Ariza [facility] [address] [place] [address] Meeting Planner 12/27/17 06/29/24 Merlene Wallis RN [address] [place] [address] CCM Test Kitchen Home Economist 12/27/17 10/02/18 Milo Olson RN [address] [address] CCM Test Kitchen Home Economist 03/14/18 07/05/18 Osiris Mota, RN [address] [place] [address] Agricultural Engineering Teacher 08/25/21 09/23/21 Bernadette Bedolla, SULY [address] [place] [address] Agricultural Engineering Teacher 06/30/24 documented as of this encounter
--- OUTSIDE RECORDS SUMMARY | 2025-01-30 18:35 | XMS_ITS | Encounter Summary ---
Author Organization [facility] Address [address] [place] [address] Care Team Providers Care Type Casting Machine Operator Name Role Phone Taurus Jerry MD Unavailable [phone] Mark Chery MD Primary Care Provider [phone] Celestina Higgins RN Unavailable Unavaila Lorena Crenshaw [facility] Unavailable [phone] Merlene Wallis RN Unavailable Unavailable Milo Olson RN Unavailable Unavailable Osiris Mota RN Unavailable [phone] Pancho English MD Primary Care Provider [phone] Mark Chery MD Unavailable [phone] Mark Chery MD Unavailable [phone] Bernadette Bedolla RN Unavailable [phone] Encounter Details Date Type Department Care Team (Late st Contact Info) Description 01/01/2007 Historical Encounter Heart & Vascular [address] [facility] [place] [address] Taurus Jerry MD 315 [facility] [address] [facility] [place] [address] Social History Tobacco Use Types Packs/Day Years Used Date Smoking Tobacco: Never Assessed Sex and Gender Information Value Date Recorded Sex Assigned at Not on file Legal Sex Male 6:30 AM NETEZZA ARCHITECT Gender Identity Not on file Sexual Orientation Not on file documented as of this encounter Miscellaneous Notes * [facility] Procedures - Taurus Jerry MD - 01/01/2007 7:26 AM CDT [facility] NAME: Sha Bailey UNIT #: [id number] ROOM #: [facility] #: [id number] PATIENT TYPE: I : 1945 ATTEND PHY: Taurus Jerry M.D. PROC DATE: 12/11/2006 HEART CATHETERIZATION REPORT PROCEDURES: 1. Coronary angiography. 2. Balloon angioplasty and stenting of the proximal left anterior descending coronary artery using a cypher drug eluting stent. BRIEF HISTORY: Mr. Bailey is a 61-year-old man who was referred following an abnormal cardiac CTA that was performed at the [facility] yesterday. He was admitted to the hospital and underwent balloon angioplasty and stenting of a high-grade proximal left anterior descending stenosis. PROCEDURE DETAILS: Following informed consent the patient was brought to Cardiac Catheterization Laboratory where a 6 Kinyarwanda sheath was inserted into the right common femoral artery. Coronary angiography was then performed in standard projections using a Claudio left diagnostic catheter. The right coronary artery was noted to be nondominant and a small vessel by cardiac CTA with no evidence of obstructive stenosis. The right coronary artery was not selectively cannulated. Following the diagnostic angiogram and XB 3.5 guide was advanced and seated at the left main coronary ostium and provided excellent support. After prophylactic heparin and Integrilin were administered a pro-water wire was advanced into the left anterior descending and positioned distally without difficulty. The stenosis in the proximal left anterior descending was dilated and stented using a cypher drug eluting stent with excellent final results. The stent was then post dilated as described below. There were no complications. The patient tolerated the procedure well. ANGIOGRAPHY FINDINGS: 1. The left main coronary artery is normal. The left anterior descending contains an 80% stenosis in its proximal portion with a 30 to 40% stenosis in its mid portion that is eccentric. There is a tiny (less than 2 mm) second diagonal branch which is located at the lesion site. There is a moderate first size diagonal branch which arises prior to the lesion site and is free of flow limiting disease but does contain minor luminal irregularities throughout its course. The circumflex is a dominant vessel which contains a large first and second left posterolateral branch and a small to moderate sized first obtuse marginal branch all of which are free of flow limiting disease. There is a moderate sized posterior descending coronary artery that arises from the left circumflex system and is also free of flow-limiting disease. IMPRESSION: High-grade proximal left anterior descending stenosis. PLAN: PCI. INTERVENTIONAL DETAILS: By the XB 3.5 guide that was advanced and seated and provided excellent support at the left main coronary ostium a pro- water wire was advanced and positioned in the distal left anterior descending following prophylactic heparin and Integrilin. The previously described left anterior descending stenosis was then primarily stented using a 3.0 x 13 mm cypher drug eluting stent with excellent final results. The stent was then post dilated using a 3.0 x 8 mm Quantum Haskell throughout its course to 12 to 14 atmospheres with excellent final results. There was no residual stenosis noted within the stent, no dissection, and LEXI III flow noted throughout the left anterior descending system. IMPRESSION: Successful balloon angioplasty and stenting of the proximal left anterior descending using a cypher drug eluting stent. PLAN: 1. Admit the patient for 12-18 hours of Integrilin infusion. 2. Plavix plus aspirin uninterrupted for at least 12 months. 3. Continued lifestyle modification and risk factor modification for underlying coronary artery disease and risk factors for coronary artery disease. Electronically Signed by Taurus Jerry M.D. 01/01/2007 07:22Taurus Jerry M.D. /MARKEL cc: Taurus Jerry M.D. ex: P P DOC #: [id number] This document contains information that is confidential, exempt from disclosure under applicable law and protected by patient medical privilege. documented in this encounter Plan of Treatment Upcoming Encounters Date Type Department Care Team (Late st Contact Info) Description 02/09/2025 11:00 AM NETEZZA ARCHITECT Office Visit [facility] Urology [address] [place] [address] 1[address] [place] [address] Sha Briggs MD [address] [place] [address] 02/25/2025 2:00 PM NETEZZA ARCHITECT Office Visit Heart & Vascular [address] [place] [address], [place] [address] Fran Prajapati MD [address] [place], [place] [address] [place] [place] [address] 02/27/2025 10:00 AM NETEZZA ARCHITECT Office Visit [address] [place] [address] Pancho English MD [address] [place] [address], [place] [address] 05/13/2025 3:10 PM NETEZZA ARCHITECT [facility] Visit [facility] [address] [place] [address] Chris Read FNP [address] [place] [address] documented as of this encounter Visit Diagnoses Not on filedocumented in this encounter Additional Health Concerns Infection Onset Date Last Indicated Resolved Time COVID-19 pending 09/19/2019 09/19/2019 09/21/2019 6:36 AM CDT COVID-19 pending 10/21/2019 10/21/2019 10/22/2019 12:10 PM CDT Mycoplasma pending 10/22/2019 10/22/2019 0 6:05 PM CDT COVID-19 pending 03/08/2020 03/08/2020 03/08/2020 11:04 AM NETEZZA ARCHITECT COVID-19 pending 03/08/2020 03/08/2020 03/08/2020 2:29 PM NETEZZA ARCHITECT COVID-19/FLU/RSV pending 05/08/2020 05/08/2020 10:52 AM NETEZZA ARCHITECT Mycoplasma pending 05/08/2020 05/08/2020 02/27/202 1 1:00 PM NETEZZA ARCHITECT documented as of this encounter Care Teams Type Casting Machine Operator Relationship Specialty Start Date End Date Mark Chery MD [address] [place] [address], [place] [address] PCP - General Family Medicine 12/06/16 06/12/22 Pancho English MD [address] [place] [address], [place] [address] PCP - General Family Medicine 06/13/22 Mark Chery MD [address] [place] [address], [place] [address] PCP - Attributed Provider-Medicare ACO 09/08/17 10/16/17 Mark Chery MD [address] [place] [address], [place] [address] PCP - Attributed Provider-Medicare ACO 12/09/17 03/25/18 Taurus Jerry MD Cardiology 05/06/14 05/20/20 Celestina Higgins, RN [address] [place] [address] CCM Retail Support Manager 03/21/17 05/09/17 Lorena Ariza LMSW [address] [address] Focus Puller 12/27/17 06/29/24 Merlene Wallis RN [address] [address] CCM Retail Support Manager 12/27/17 10/02/18 Milo Olson RN [address] [place] [address], [place] [address] CCM Retail Support Manager 03/14/18 07/05/18 Osiris Mota, RN [address] [place] [address], [place] [address] Physical Director 08/25/21 09/23/21 Bernadette Bedolla, SULY [address] [place] [address], [place] [address] Physical Director 06/30/24 documented as of this encounter
--- OUTSIDE RECORDS SUMMARY | 2025-01-30 18:35 | XMS_ITS | Encounter Summary ---
Author Organization [facility] Address [address] [place] [address] [place], [address] Care Team Providers Care Cost Clerk Name Role Phone Taurus Jerry MD Unavailable [phone] Mark Chery MD Primary Care Provider [phone] Celestina Higgins RN Unavailable Unavaila Lorena Crenshaw [facility] Unavailable [phone] Merlene Wallis RN Unavailable Unavailable Milo Olson RN Unavailable Unavailable Osiris Mota RN Unavailable [phone] Pancho English MD Primary Care Provider [phone] Mark Chery MD Unavailable [phone] Mark Chery MD Unavailable [phone] Bernadette Bedolla RN Unavailable [phone] Encounter Details Date Type Department Care Team (Late st Contact Info) Description 08/26/2007 Historical Encounter HISTORICAL Provider, MD [place] [address] [facility] [place] [address] Social History Tobacco Use Types Packs/Day Years Used Date Smoking Tobacco: Never Assessed Sex and Gender Information Value Date Recorded Sex Assigned at Not on file Legal Sex Male 6:30 AM STEPDOWN NURSE Gender Identity Not on file Sexual Orientation Not on file documented as of this encounter Plan of Treatment Upcoming Encounters Date Type Department Care Team (Late st Contact Info) Description 02/09/2025 11:00 AM STEPDOWN NURSE Office Visit [facility] Urology [address] 1st [place] [address] Sha Briggs MD [address] [place] [address] 02/25/2025 2:00 PM STEPDOWN NURSE Office Visit Heart & Vascular [address] [place] [address] Fran Prajapati MD [address] [place] [address], [place] [address] 02/27/2025 10:00 AM STEPDOWN NURSE Office Visit [address] [place] [address] Pancho English MD [address] [place] [address], [place] [address] 05/13/2025 3:10 PM STEPDOWN NURSE [facility] Visit [facility] [address] [place] [address] Chris Read FNP [address] [place] [address] documented as of this encounter Visit Diagnoses Not on filedocumented in this encounter Additional Health Concerns Infection Onset Date Last Indicated Resolved Time COVID-19 pending 09/19/2019 09/19/2019 09/21/2019 6:36 AM CDT COVID-19 pending 10/21/2019 10/21/2019 10/22/2019 12:10 PM CDT Mycoplasma pending 10/22/2019 10/22/2019 0 6:05 PM CDT COVID-19 pending 03/08/2020 03/08/2020 03/08/2020 11:04 AM STEPDOWN NURSE COVID-19 pending 03/08/2020 03/08/2020 03/08/2020 2:29 PM STEPDOWN NURSE COVID-19/FLU/RSV pending 05/08/2020 05/08/2020 10:52 AM STEPDOWN NURSE Mycoplasma pending 05/08/2020 05/08/2020 1:00 PM STEPDOWN NURSE documented as of this encounter Care Teams Cost Clerk Relationship Specialty Start Date End Date Mark Chery MD [address] [place] [address], [place] [address] PCP - General Family Medicine 12/06/16 06/12/22 Pancho English MD [address] [place] [address], [place] [address] PCP - General Family Medicine 06/13/22 Mark Chery MD [address] [place] [address], [place] [address] PCP - Attributed Provider-Medicare ACO 09/08/17 10/16/17 Mark Chery MD [address] [place] [address], [place] [address] PCP - Attributed Provider-Medicare ACO 12/09/17 03/25/18 Taurus Jerry MD Cardiology 05/06/14 05/20/20 Celestina Higgins, RN [address] [place] [address] CCM Dye Tank Tender 03/21/17 05/09/17 Lorena Ariza LMSW [address] [place] [address], [place] [address] Curbing Stonecutter 12/27/17 06/29/24 Merlene Wallis RN [address] [place] [address], [place] [address] CCM Dye Tank Tender 12/27/17 10/02/18 Milo Olson RN [address] [place] [address], [place] [address] CCM Dye Tank Tender 03/14/18 07/05/18 Osiris Mota, SULY [address] [place] [address], [place] [address] Follow Up Specialist 08/25/21 09/23/21 Bernadette Bedolla RN [address] [place] [address], [place] [address] Follow Up Specialist 06/30/24 documented as of this encounter
--- OUTSIDE RECORDS SUMMARY | 2025-01-30 18:35 | XMS_ITS | Encounter Summary ---
Author Organization [facility] Address [address] [place] [address] Care Team Providers Care Plug Assembler Name Role Phone Taurus Jerry MD Unavailable [phone] Mark Chery MD Primary Care Provider [phone] Celestina Higgins RN Unavailable Unavaila Lorena Crenshaw [facility] Unavailable [phone] Merlene Wallis RN Unavailable Unavailable Milo Olson RN Unavailable Unavailable Osiris Mota RN Unavailable [phone] Pancho English MD Primary Care Provider [phone] Mark Chery MD Unavailable [phone] Mark Chery MD Unavailable [phone] Bernadette Bedolla RN Unavailable [phone] Encounter Details Date Type Department Care Team (Late st Contact Info) Description 02/20/2007 Historical Encounter Heart & Vascular [address] [facility] [place] [address] Taurus Jerry MD [address] [facility] [address] [facility] [place] [address] Social History Tobacco Use Types Packs/Day Years Used Date Smoking Tobacco: Never Assessed Sex and Gender Information Value Date Recorded Sex Assigned at Not on file Legal Sex Male 6:30 AM FUEL OPERATOR Gender Identity Not on file Sexual Orientation Not on file documented as of this encounter Miscellaneous Notes * Office Visit - Taurus Jerry MD - 02/20/2007 8:38 AM CST Cardiology - Main Office Visit DATE OF SERVICE: 02/19/2007 PATIENT NAME: PASCALE BAILEY : 1945 REASON FOR FOLLOW UP: Status post balloon angioplasty and stenting of the proximal LAD using a Cypher drug-eluting stent. HISTORY OF PRESENT ILLNESS: The patient is a 61-year-old male with CAD who presented to our clinic with symptoms suggestive of angina. He underwent cardiac CTA and was found to have a proximal stenosis and was taken to the cardiac catheterization laboratory where he underwent balloon angioplasty and stenting of the proximal LAD with a Cypher drug-eluting stent. He has done well following his balloon angioplasty procedure with no recurrent angina. He is tolerating his medical regimen including aspirin and Plavix which we have reemphasized the necessity of taking this for up to a year. He has also returned to work following a symptom limited treadmill in which case he past with [employer]. PAST MEDICAL, PAST SURGICAL, SOCIAL, AND FAMILY HISTORY: Unchanged from prior. CURRENT MEDICATIONS: 1. Aspirin 325 mg p.o. q. day. 2. Lipitor 40 mg p.o. q. day. 3. Plavix 75 mg p.o. q. day. 4. Protonix 40 mg p.o. q. day. 5. Toprol-XL 100 mg p.o. q. day. REVIEW OF SYSTEMS: As noted in the HPI. Otherwise, no angina, no shortness of breath, no dyspnea on exertion, no palpitations, no syncope or near syncope. PHYSICAL EXAMINATION: VITAL SIGNS: Blood pressure 140/80. Pulse 80 and regular. Respiratory rate 12 to 14. GENERAL: Well-developed, well-nourished, man in no apparent distress. CARDIAC: Regular rate and rhythm. No murmurs, gallops or rubs. LUNGS: Clear to auscultation bilaterally. No wheezes, rales or rhonchi. ABDOMEN: Soft, nontender, and nondistended with no palpable mass. EXT: Warm and well perfused with no cyanosis, clubbing or edema. DATA REVIEW: As noted in the HPI. IMPRESSION: 1. CAD with no recurrent angina. 2. History of drug-eluting stent to LAD, currently on aspirin and Plavix. 3. Dyslipidemia, currently taking Lipitor. PLAN: Will schedule follow up with us in approximately six months for repeat evaluation. Otherwise, continue current medical therapy and I have encouraged weight loss and dietary restriction which may hopefully obviate the need for additional blood pressure regimen or controlling medications, however, we will address this at our next visit. Taurus Jerry MD TR: SELENA/LORIE Conf #: [id number] Dictation ID: [id number] cc: (Signed in IC-Chart by Taurus Jerry MD on 2007-02-21 16:16:57) documented in this encounter Plan of Treatment Upcoming Encounters Date Type Department Care Team (Late st Contact Info) Description 02/09/2025 11:00 AM FUEL OPERATOR Office Visit [facility] Urology [address] [place] [address] 1st [place] [address] Pascale Briggs MD [address] [place] [address] 02/25/2025 2:00 PM FUEL OPERATOR Office Visit Heart & Vascular [address] [place] [address], [place] [address] Fran Prajapati MD [address] [place] [address] 02/27/2025 10:00 AM FUEL OPERATOR Office Visit [address] [place] [address] Pancho English MD [address] [place] [address], [place] [address] 05/13/2025 3:10 PM FUEL OPERATOR [facility] [address] [facility] [address] [place], [address] Chris Read, ROBER [address] [facility] [place], [address] documented as of this encounter Visit Diagnoses Not on filedocumented in this encounter Additional Health Concerns Infection Onset Date Last Indicated Resolved Time COVID-19 pending 09/19/2019 09/19/2019 09/21/2019 6:36 AM CDT COVID-19 pending 10/21/2019 10/21/2019 10/22/2019 12:10 PM CDT Mycoplasma pending 10/22/2019 10/22/2019 0 6:05 PM CDT COVID-19 pending 03/08/2020 03/08/2020 03/08/2020 11:04 AM FUEL OPERATOR COVID-19 pending 03/08/2020 03/08/2020 03/08/2020 2:29 PM FUEL OPERATOR COVID-19/FLU/RSV pending 05/08/2020 05/08/2020 10:52 AM FUEL OPERATOR Mycoplasma pending 05/08/2020 05/08/2020 1:00 PM FUEL OPERATOR documented as of this encounter Care Teams Plug Assembler Relationship Specialty Start Date End Date Mark Chery MD [address] [place], [place] [address] [place] [address] PCP - General Family Medicine 12/06/16 06/12/22 Pancho English MD [address] [place] [address], [address] PCP - General Family Medicine 06/13/22 Mark Chery MD [address] [place], [place] [address], [address] [phone] PCP - Attributed Provider-Medicare ACO 09/08/17 10/16/17 Mark Chery MD [address] [facility], [address] PCP - Attributed Provider-Medicare ACO 12/09/17 03/25/18 Taurus Jerry MD Cardiology 05/06/14 05/20/20 Celestina Higgins, RN [address] [place] [address] CCM Ship Fastener 03/21/17 05/09/17 Lorena Ariza [facility] [address] [place] [facility] [place] [address] Fraternity House Cook 12/27/17 06/29/24 Merlene Wallis RN [address] [place] [facility] [place] [address] CCM Ship Fastener 12/27/17 10/02/18 Milo Olson RN [address] [place] [address] CCM Ship Fastener 03/14/18 07/05/18 Osiris Mota, SULY [address] [place] [address] Plug Assembler 08/25/21 09/23/21 Bernadette Bedolla, SULY [address] [place] [address] Plug Assembler 06/30/24 documented as of this encounter
--- OUTSIDE RECORDS SUMMARY | 2025-01-30 18:35 | XMS_ITS | Encounter Summary ---
Author Organization [facility] Address [address] [address] Care Team Providers Care Defence Force Member Other Ranks Name Role Phone Taurus Jerry MD Unavailable [phone] Mark Chery MD Primary Care Provider [phone] Celestina Higgins RN Unavailable Unavaila Lorena Crenshaw [facility] Unavailable [phone] Merlene Wallis RN Unavailable Unavailable Milo Olson RN Unavailable Unavailable Osiris Mota RN Unavailable [phone] Pancho English MD Primary Care Provider [phone] Mark Chery MD Unavailable [phone] Mark Chery MD Unavailable [phone] Bernadette Bedolla RN Unavailable [phone] Encounter Details Date Type Department Care Team (Latest Contact Info) Description 01/17/2007 Scanned Document EXTERNAL Scan, Clinical [address] [facility] 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 Gender Identity Not on file Sexual Orientation Not on file documented as of this encounter Plan of Treatment Upcoming Encounters Date Type Department Care Team (Late st Contact Info) Description 02/09/2025 11:00 AM AIR ROUTE TRAFFIC CONTROLLER Office Visit [facility] Urology [address] 1st [place] [address] Sha Briggs MD [address] [facility] [place] [address] 02/25/2025 2:00 PM AIR ROUTE TRAFFIC CONTROLLER Office Visit Heart & Vascular [address] [place] [address] Fran Prajapati MD [address] [place], [place] [address]E [facility] [place] [phone] 02/27/2025 10:00 AM AIR ROUTE TRAFFIC CONTROLLER Office Visit [address] [place] [address] Pancho English MD [address] [place] [address], [place] [address] 05/13/2025 3:10 PM AIR ROUTE TRAFFIC CONTROLLER [facility] [address] [place] [address] Chris Read FNP [address] [place] [address] documented as of this encounter Visit Diagnoses Not on filedocumented in this encounter Additional Health Concerns Infection Onset Date Last Indicated Resolved Time COVID-19 pending 09/19/2019 09/19/2019 09/21/2019 6:36 AM CDT COVID-19 pending 10/21/2019 10/21/2019 10/22/2019 12:10 PM CDT Mycoplasma pending 10/22/2019 10/22/2019 6:05 PM CDT COVID-19 pending 03/08/2020 03/08/2020 03/08/2020 11:04 AM AIR ROUTE TRAFFIC CONTROLLER COVID-19 pending 03/08/2020 03/08/2020 03/08/2020 2:29 PM AIR ROUTE TRAFFIC CONTROLLER COVID-19/FLU/RSV pending 05/08/2020 05/08/2020/2021 10:52 AM AIR ROUTE TRAFFIC CONTROLLER Mycoplasma pending 05/08/2020 05/08/2020 1:00 PM AIR ROUTE TRAFFIC CONTROLLER documented as of this encounter Care Teams Defence Force Member Other Ranks Relationship Specialty Start Date End Date Mark Chery MD [address] [place] [address], [place] [address] PCP - General Family Medicine 12/06/16 06/12/22 Pancho English MD [address] [place] [address], [place] [address] PCP - General Family Medicine 06/13/22 aMrk Chery MD [address] [place] [address], [place] [address] PCP - Attributed Provider-Medicare ACO 09/08/17 10/16/17 Mark Chery MD [address] [place] [address], [place] [address] PCP - Attributed Provider-Medicare ACO 12/09/17 03/25/18 Taurus Jerry MD Cardiology 05/06/14 05/20/20 Celestina Higgins, RN [address] [place] [address] CCM Knitting Tester 03/21/17 05/09/17 Lorena Ariza LMSW [address] [place] [address], [place] [address] Day Care Attendant 12/27/17 06/29/24 Merlene Wallis RN [address] [place] [address], [place] [address] CCM Knitting Tester 12/27/17 10/02/18 Milo Olson RN [address] [place] [address], [place] [address] CCM Knitting Tester 03/14/18 07/05/18 Osiris Mota, SULY [address] [place] [address], [place] [address] Circulation Manager 08/25/21 09/23/21 Bernadette Bedolla RN [address] [place] [address], [place] [address] Circulation Manager 06/30/24 documented as of this encounter
--- OUTSIDE RECORDS SUMMARY | 2025-01-30 18:35 | XMS_ITS | Encounter Summary ---
Author Organization [facility] Address [address] [place] [address] Care Team Providers Care Precision Lens Centerer And Edger Name Role Phone Taurus Jerry MD Unavailable [phone] Mark Chery MD Primary Care Provider [phone] Celestina Higgins RN Unavailable Unavaila Lorena Crenshaw [facility] Unavailable [phone] Merleen Wallis RN Unavailable Unavailable Milo Olson RN Unavailable Unavailable Osiris Mota RN Unavailable [phone] Pancho English MD Primary Care Provider [phone] Mark Chery MD Unavailable [phone] Mark Chery MD Unavailable [phone] Bernadette Bedolla RN Unavailable [phone] Encounter Details Date Type Department Care Team (Late st Contact Info) Description 12/10/2006 Historical Encounter Heart & Vascular [address] [facility] [address] Taurus Jerry MD [address] [facility] [address] [facility] [place] [address] Social History Tobacco Use Types Packs/Day Years Used Date Smoking Tobacco: Never Assessed Sex and Gender Information Value Date Recorded Sex Assigned at Not on file Legal Sex Male 6:30 AM PREMIUM REPRESENTATIVE Gender Identity Not on file Sexual Orientation Not on file documented as of this encounter Consult Notes * Taurus Jerry MD - 12/10/2006 12:32 PM CDT [facility] Consultation DATE OF SERVICE: 12/10/2006 PATIENT NAME: PASCALE CEJA : 1945 REFERRING PHYSICIAN: Dr. Tony Pavon. HISTORY OF PRESENT ILLNESS: The patient is a 61-year-old man with no significant past medical history with the exception of questionable heart attack at the age of 26. He is a former smoker and apparently quit within the fairly recent past but otherwise has no history of hypertension, no diabetes, and no family history of premature atherosclerotic vascular disease. Apparently, he had an episode of chest discomfort this past Sunday while at [employer] that had been associated with two to three day history of indigestion symptoms that he attributed to eating at a local fast food establishment. Nevertheless, the symptoms accelerated in character and in intensity until this past Sunday, which would have been yesterday, when he had a heavy substernal chest pain while at [employer]. This episode lasted for 30 to 45 minutes and was associated with shortness of breath and diaphoresis but no nausea or vomiting. 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 He presents today in clinic by way of referral with his following an abnormal cardiac CTA which was performed at [facility] today. The CT scan revealed evidence for a high-grade proximal LAD stenosis. PAST MEDICAL HISTORY: As noted above. SOCIAL HISTORY: Former smoker but recently quit. Denies alcohol or illicit drug use. CURRENT MEDICATIONS: 1. Vytorin. 2. Protonix. FAMILY HISTORY: Cancer in his sister. Diabetes in his mother. Mother is otherwise living at the age of 83. Father unknown. CURRENT MEDICATIONS: As noted above. REVIEW OF SYSTEMS: CARDIAC: As noted in the HPI. PULMONARY: No cough, sputum or hemoptysis. GI: No melena or hematochezia. : No hesitancy or dysuria. SKIN: No rash or ulceration. MUSCULOSKELETAL: No myalgias or arthralgias. No joint pains. PSYCH: No anxiety or depression. NEUROLOGIC: No weakness or numbness. HEME: No easy bruising or bleeding disorders. PHYSICAL EXAM: VITAL SIGNS: Blood pressure 140/85. Pulse 70. Respiratory rate 12 to 14. GENERAL: Well developed, well nourished, in no apparent distress. HEENT: Normocephalic, atraumatic. Pupils equal, round, and reactive to light and accommodation. Extraocular muscles intact. NECK: Supple with midline trachea. No jugular venous distention, no evidence of carotid bruits. CARDIAC: Regular rate and rhythm. No murmurs, gallops or rubs. LUNGS: Clear to auscultation bilaterally. No wheezes, rales or rhonchi. ABDOMEN: Soft, nontender, and nondistended with no palpable mass. No appreciable bruits. There is no hepatosplenomegaly. EXT: Warm and well perfused with no cyanosis, clubbing or edema. NEURO: Cranial nerves II - XII grossly intact with no motor or sensory abnormalities. PSYCHIATRIC: Alert and oriented with no anxiety or depressive features. SKIN: No rash, ulceration or evidence of non-healing wounds. MUSCULOSKELETAL: No joint deformities or evidence of erosive type arthritis. DATA REVIEW: Cardiac CTA As noted in the HPI. 12 lead electrocardiogram reveals sinus mechanism with nonspecific STT abnormalities but no evidence for A myocardial infarction. IMPRESSION: Unstable angina pectoris with markedly abnormal cardiac CTA revealing proximal LAD stenosis/plaque. PLAN: 1. We will admit the patient for planned cardiac cath today or tomorrow. 2. Lovenox/heparin for anticoagulation. 3. Aspirin. 4. Beta-verito. 5. Long acting nitrates if needed. 6. High dose statin. Taurus Jerry MD TR: OSMEL Conf #: [id number] Dictation ID: [id number] cc:Tony Pavon MD (Signed in IC-Chart by Taurus Jerry MD on 2006-12-10 16:01:55) documented in this encounter Plan of Treatment Upcoming Encounters Date Type Department Care Team (Late st Contact Info) Description 02/09/2025 11:00 AM PREMIUM REPRESENTATIVE Office Visit [facility] Urology [address] 1st [place] [address] Pascale Briggs MD [address] [place] [address] 02/25/2025 2:00 PM PREMIUM REPRESENTATIVE Office Visit Heart & Vascular [address] [place] [address] Fran Prajapati MD [address] [place] [address], [place] [phone] 02/27/2025 10:00 AM PREMIUM REPRESENTATIVE Office Visit [address] [place] [address] Pancho English MD [address] [place] [address], [place] [address] 05/13/2025 3:10 PM PREMIUM REPRESENTATIVE [facility] Visit [facility] [address] [place] [address] Chirs Read FNP [address] [place] [address] documented as of this encounter Visit Diagnoses Not on filedocumented in this encounter Additional Health Concerns Infection Onset Date Last Indicated Resolved Time COVID-19 pending 09/19/2019 09/19/2019 09/21/2019 6:36 AM CDT COVID-19 pending 10/21/2019 10/21/2019 10/22/2019 12:10 PM CDT Mycoplasma pending 10/22/2019 10/22/2019 0 6:05 PM CDT COVID-19 pending 03/08/2020 03/08/2020 03/08/2020 11:04 AM PREMIUM REPRESENTATIVE COVID-19 pending 03/08/2020 03/08/2020 03/08/2020 2:29 PM PREMIUM REPRESENTATIVE COVID-19/FLU/RSV pending 05/08/2020 05/08/2020 10:52 AM PREMIUM REPRESENTATIVE Mycoplasma pending 05/08/2020 05/08/2020 1:00 PM PREMIUM REPRESENTATIVE documented as of this encounter Care Teams [employer]ision Lens Centerer And Edger Relationship Specialty Start Date End Date Mark Chery MD [address] [place] [address], [place] [address] PCP - General Family Medicine 12/06/16 06/12/22 Pancho English MD [address] [place] [address], [place] [address] PCP - General Family Medicine 06/13/22 Mark Chery MD [address] [place] [address], [place] [address] PCP - Attributed Provider-Medicare ACO 09/08/17 10/16/17 Mark Chery MD [address] [place] [address], [place] [address] PCP - Attributed Provider-Medicare ACO 12/09/17 03/25/18 Taurus Jerry MD Cardiology 05/06/14 05/20/20 Celestina Higgins, RN [address] [facility] [place] [address] CCM Qc Lab Technician 03/21/17 05/09/17 Lorena Ariza LMSW [address] [place] [address], [place] [address] Slot Router 12/27/17 06/29/24 Merlene Wallis RN [address] [place] [address], [place] [address] CCM Qc Lab Technician 12/27/17 10/02/18 Milo Olson RN [address] [place] [address], [place] [address] CCM Qc Lab Technician 03/14/18 07/05/18 Osiris Mota, RN [address] [place] [address], [place] [address] It Service Technician 08/25/21 09/23/21 Bernadette Bedolla, RN [address] [place] [address], [place] [address] It Service Technician 06/30/24 documented as of this encounter
--- OUTSIDE RECORDS SUMMARY | 2025-01-30 18:35 | XMS_ITS | Encounter Summary ---
Author Organization [facility] Address [address] [place] [address] Care Team Providers Care Private Branch Exchange Operator Name Role Phone Taurus Jerry MD Unavailable [phone] Mark Chery MD Primary Care Provider [phone] Celestina Higgins RN Unavailable Unavaila Lorena Crenshaw [facility] Unavailable [phone] Merlene Wallis RN Unavailable Unavailable Milo Olson RN Unavailable Unavailable Osiris Mota RN Unavailable [phone] Pancho English MD Primary Care Provider [phone] Mark Chery MD Unavailable [phone] Mark Chery MD Unavailable [phone] Bernadette Bedolla RN Unavailable [phone] Encounter Details Date Type Department Care Team (Latest Contact Info) Description 12/07/2006 Scanned Document EXTERNAL Scan, Clinical [address] [facility] [place] [address] Social History Tobacco Use Types Packs/Day Years Used Date Smoking Tobacco: Never Assessed Sex and Gender Information Value Date Recorded Sex Assigned at Not on file Legal Sex Male 6:30 AM RECORDS SPECIALIST Gender Identity Not on file Sexual Orientation Not on file documented as of this encounter Plan of Treatment Upcoming Encounters Date Type Department Care Team (Late st Contact Info) Description 02/09/2025 11:00 AM RECORDS SPECIALIST Office Visit [facility] Urology [address] 1st [place] [address] Sha Briggs MD [address] [place] [address] 02/25/2025 2:00 PM RECORDS SPECIALIST Office Visit Heart & Vascular [address] [place] [address] Fran Prajapati MD [address] [place], [place] [address]E [place] [address] 02/27/2025 10:00 AM RECORDS SPECIALIST Office Visit [address] [place] [address] Pancho English MD [address] [place] [address], [place] [address] 05/13/2025 3:10 PM RECORDS SPECIALIST [facility] [address] [place] [address] Chris Read FNP [address] [place] [address] documented as of this encounter Visit Diagnoses Not on filedocumented in this encounter Additional Health Concerns Infection Onset Date Last Indicated Resolved Time COVID-19 pending 09/19/2019 09/19/2019 09/21/2019 6:36 AM CDT COVID-19 pending 10/21/2019 10/21/2019 10/22/2019 12:10 PM CDT Mycoplasma pending 10/22/2019 10/22/2019 6:05 PM CDT COVID-19 pending 03/08/2020 03/08/2020 03/08/2020 11:04 AM RECORDS SPECIALIST COVID-19 pending 03/08/2020 03/08/2020 03/08/2020 2:29 PM RECORDS SPECIALIST COVID-19/FLU/RSV pending 05/08/2020 05/08/2020/2021 10:52 AM RECORDS SPECIALIST Mycoplasma pending 05/08/2020 05/08/2020 1:00 PM RECORDS SPECIALIST documented as of this encounter Care Teams Private Branch Exchange Operator Relationship Specialty Start Date End Date Mark Chery MD [address] [place] [address], [place] [address] PCP - General Family Medicine 12/06/16 06/12/22 Pancho English MD [address] [place] [address], [place] [address] PCP - General Family Medicine 06/13/22 Mark Chery MD [address] [place] [address], [place] [address] PCP - Attributed Provider-Medicare ACO 09/08/17 10/16/17 Mark Chery MD [address] [place] [address], [place] [address] PCP - Attributed Provider-Medicare ACO 12/09/17 03/25/18 Taurus Jerry MD Cardiology 05/06/14 05/20/20 Celestina Higgins, RN [address] [facility] [place] [address] CCM Charge Out Clerk 03/21/17 05/09/17 Lorena Ariza LMSW [address] [place] [address], [place] [address] Measurement Superintendent 12/27/17 06/29/24 Merlene Wallis RN [address] [place] [address], [place] [address] CCM Charge Out Clerk 12/27/17 10/02/18 Milo Olson RN [address] [place] [address], [place] [address] CCM Charge Out Clerk 03/14/18 07/05/18 Osiris Mota, SULY [address] [place] [address], [place] [address] Bench Assembler Operator 08/25/21 09/23/21 Bernadette Bedolla RN [address] [place] [address], [place] [address] Bench Assembler Operator 06/30/24 documented as of this encounter
--- OUTSIDE RECORDS SUMMARY | 2025-01-30 18:36 | XMS_ITS | Encounter Summary ---
Author Organization [facility] Address [address] [place] [address] Care Team Providers Care Trolley Operator Name Role Phone LeanneerTaurus MD Unavailable [phone] Mark Chery MD Primary Care Provider [phone] Celestina Higgins RN Unavailable Unavaila Lorena Crenshaw [facility] Unavailable [phone] Merlene Wallis RN Unavailable Unavailable Milo Olson RN Unavailable Unavailable Osiris Mota RN Unavailable [phone] Pancho English MD Primary Care Provider [phone] Mark Chery MD Unavailable [phone] Mark Chery MD Unavailable [phone] Bernadette Bedolla RN Unavailable [phone] Encounter Details Date Type Department Care Team (Late st Contact Info) Description 01/18/2010 Historical Encounter [facility] [address] [facility] [place] [address] Angelo Wallis DO [address] [facility] [place] [address] Social History Tobacco Use Types Packs/Day Years Used Date Smoking Tobacco: Never Assessed Sex and Gender Information Value Date Recorded Sex Assigned at Not on file Legal Sex Male 6:30 AM SHOE REPAIRER Gender Identity Not on file Sexual Orientation Not on file documented as of this encounter Miscellaneous Notes * Office Visit - Angelo Wallis DO - 01/18/2010 7:16 PM CST [facility] Office Visit DATE OF SERVICE: 01/15/2010 PATIENT NAME: PASCALE BAILEY : 1945 This is a 64-year-old, coronary artery disease patient, having right shoulder and right lower back discomfort after catching a man falling two days ago. His symptoms are not radicular. Currently, 150/80, pulse 64 and afebrile. 214 pounds. He has good range of motion and side bending rotation of the back, but poor flexion. He does have full range of motion through the right rotator cuff. There is mild tenderness along the trapezius musculature, but not bony prominences or AC joint. ASSESSMENT AND PLAN: 1. Right shoulder bruise and lower back strain. We will continue Aleve. Darvocet was given #30 and Flexeril 10's, 1/2 to 1 every 8 hours. 2. Blood pressure, controlled. His Coreg CR was costing him $150 a month. I changed it to Coreg 12.5, 1 / b.i.d. He will follow with Dr. Jerry next week. Angelo Wallis DO TR: YAMILETH Conf #: [id number] Dictation ID: [id number] cc: (Signed in IC-Chart by Angelo Wallis DO on 2010-01-21 08:36:39) documented in this encounter Plan of Treatment Upcoming Encounters Date Type Department Care Team (Late st Contact Info) Description 02/09/2025 11:00 AM SHOE REPAIRER Office Visit [facility] Urology [address] 1st [place] [address] Pascale Briggs MD [address] [place] [address] 02/25/2025 2:00 PM SHOE REPAIRER Office Visit Heart & Vascular [address] [address] Fran Prajapati MD [address] [place], [place] [address] [place] [phone] 02/27/2025 10:00 AM SHOE REPAIRER Office Visit [address] [place] [address] Pancho English MD [address] [place] [address], [place] [address] 05/13/2025 3:10 PM SHOE REPAIRER [facility] [address] [place] [address] Chris Read FNP [address] [place] [address] documented as of this encounter Visit Diagnoses Not on filedocumented in this encounter Additional Health Concerns Infection Onset Date Last Indicated Resolved Time COVID-19 pending 09/19/2019 09/19/2019 09/21/2019 6:36 AM CDT COVID-19 pending 10/21/2019 10/21/2019 10/22/2019 12:10 PM CDT Mycoplasma pending 10/22/2019 10/22/2019 6:05 PM CDT COVID-19 pending 03/08/2020 03/08/2020 03/08/2020 11:04 AM SHOE REPAIRER COVID-19 pending 03/08/2020 03/08/2020 03/08/2020 2:29 PM SHOE REPAIRER COVID-19/FLU/RSV pending 05/08/2020 05/08/2020/2021 10:52 AM SHOE REPAIRER Mycoplasma pending 05/08/2020 05/08/2020 1:00 PM SHOE REPAIRER documented as of this encounter Care Teams Trolley Operator Relationship Specialty Start Date End Date Mark Chery MD [address] [place] [address], [place] [address] PCP - General Family Medicine 12/06/16 06/12/22 Pancho English MD [address] [place] [address], [place] [address] PCP - General Family Medicine 06/13/22 Mark Chery MD [address] [place] [address], [place] [address] PCP - Attributed Provider-Medicare ACO 09/08/17 10/16/17 Mark Chery MD [address] [place] [address], [place] [address] PCP - Attributed Provider-Medicare ACO 12/09/17 03/25/18 Taurus Jerry MD Cardiology 05/06/14 05/20/20 Celestina Higgins, RN [address] [place] [address] CCM Rn Occupational Health 03/21/17 05/09/17 Lorena Ariza LMSW [address] [place] [address], [place] [address] Food Adviser 12/27/17 06/29/24 Merlene Wallis RN [address] [place] [address], [place] [address] CCM Rn Occupational Health 12/27/17 10/02/18 Milo Olson RN [address] [place] [address], [place] [address] CCM Rn Occupational Health 03/14/18 07/05/18 Osiris Mota, SULY [address] [place] [address], [place] [address] Recovery Room Rn 08/25/21 09/23/21 Bernadette Bedolla RN [address] [place] [address], [place] [phone] Recovery Room Rn 06/30/24 documented as of this encounter
--- OUTSIDE RECORDS SUMMARY | 2025-01-30 18:36 | XMS_ITS | Encounter Summary ---
Author Organization [facility] Address [address] [place] [address] Care Team Providers Care Campaign Fundraiser Name Role Phone Taurus Jerry MD Unavailable [phone] Mark Chery MD Primary Care Provider [phone] Celestina Higgins RN Unavailable Unavaila Lorena Crenshaw [facility] Unavailable [phone] Merlene Wallis RN Unavailable Unavailable Milo Olson RN Unavailable Unavailable Osiris Mota RN Unavailable [phone] Pancho English MD Primary Care Provider [phone] Mark Chery MD Unavailable [phone] Mark Chery MD Unavailable [phone] Bernadette Bedolla RN Unavailable [phone] Encounter Details Date Type Department Care Team (Latest Contact Info) Description 02/27/2011 Scanned Document EXTERNAL Scan, Clinical [address] [facility] [place] [address] Social History Tobacco Use Types Packs/Day Years Used Date Smoking Tobacco: Former Smokeless Tobacco: Current Chew Alcohol Use Standard Drinks/Week Comments No 0 (1 standard drink = 0.6 oz pur e alcohol) Sex and Gender Information Value Date Recorded Sex Assigned at Not on file Legal Sex Male 6:30 AM PAINTER HELPER Gender Identity Not on file Sexual Orientation Not on file documented as of this encounter Miscellaneous Notes * Miscellaneous - Scan, Clinical - 02/27/2011 12:00 AM CST TER HELPER documented in this encounter Plan of Treatment Upcoming Encounters Date Type Department Care Team (Late st Contact Info) Description 02/09/2025 11:00 AM PAINTER HELPER Office Visit [facility] [address] [place] [address] 1st [place] [address] Sha Briggs MD [address] [place] [address], [place] [address] 02/25/2025 2:00 PM PAINTER HELPER Office Visit [facility] [address] [place] [address], [place] [address] Fran Prajapati MD [address] [place] [address], [place] [address] 02/27/2025 10:00 AM PAINTER HELPER Office Visit [address] [place] [address] Pancho English MD [address] [place] [address], [place] [address] 05/13/2025 3:10 PM PAINTER HELPER [facility] Visit [facility] [address] [place] [address] Chris Read FNP [address] [place] [address] documented as of this encounter Visit Diagnoses Not on filedocumented in this encounter Additional Health Concerns Infection Onset Date Last Indicated Resolved Time COVID-19 pending 09/19/2019 09/19/2019 09/21/2019 6:36 AM CDT COVID-19 pending 10/21/2019 10/21/2019 10/22/2019 12:10 PM CDT Mycoplasma pending 10/22/2019 10/22/2019202 0 6:05 PM CDT COVID-19 pending 03/08/2020 03/08/2020 03/08/2020 11:04 AM PAINTER HELPER COVID-19 pending 03/08/2020 03/08/2020 03/08/2020 2:29 PM PAINTER HELPER COVID-19/FLU/RSV pending 05/08/2020 05/08/2020 10:52 AM PAINTER HELPER Mycoplasma pending 05/08/2020 05/08/2020 1:00 PM PAINTER HELPER documented as of this encounter Care Teams Campaign Fundraiser Relationship Specialty Start Date End Date Mark Chery MD [address] [place] [address], [place] [address] PCP - General Family Medicine 12/06/16 06/12/22 Pancho English MD [address] [place] [address], [place] [address] PCP - General Family Medicine 06/13/22 Mark Chery MD [address] [place] [address], [place] [address] PCP - Attributed Provider-Medicare ACO 09/08/17 10/16/17 Mark Chery MD [address] [place] [address], [place] [address] PCP - Attributed Provider-Medicare ACO 12/09/17 03/25/18 Taurus Jerry MD Cardiology 05/06/14 05/20/20 Celestina Higgins RN [address] [facility] [place] [address] CCM Nuclear Security Officer 03/21/17 05/09/17 Lorena Ariza LMSW [address] [place] [address] Airborne Operations 12/27/17 06/29/24 Merlene Wallis, RN [address] [place] [address] CCM Nuclear Security Officer 12/27/17 10/02/18 Milo Olson RN [address] [place] [address], [place] [address] CCM Nuclear Security Officer 03/14/18 07/05/18 Osiris Mota, SULY [address] [place] [address], [place] [address] Hand Method Lasting Machine Operator 08/25/21 09/23/21 Bernadette Bedolla, RN [address] [place] [address] Hand Method Lasting Machine Operator 06/30/24 documented as of this encounter
--- OUTSIDE RECORDS SUMMARY | 2025-01-30 18:36 | XMS_ITS | Encounter Summary ---
Author Organization [facility] Address [address] [place] [address] Care Team Providers Care City Solicitor Name Role Phone Taurus Jerry MD Unavailable [phone] Mark Chery MD Primary Care Provider [phone] Celestina Higgins RN Unavailable Unavaila Lorena Crenshaw [facility] Unavailable [phone] Merlene Wallis RN Unavailable Unavailable Milo Olson RN Unavailable Unavailable Osiris Mota RN Unavailable [phone] Pancho English MD Primary Care Provider [phone] Mark Chery MD Unavailable [phone] Mark Chery MD Unavailable [phone] Bernadette Bedolla RN Unavailable [phone] Encounter Details Date Type Department Care Team (Late st Contact Info) Description 01/26/2010 Historical Encounter [facility] [address] [facility] [address] Taurus Jerry MD [address] [facility] [address] [facility] [place] [address] Social History Tobacco Use Types Packs/Day Years Used Date Smoking Tobacco: Never Assessed Sex and Gender Information Value Date Recorded Sex Assigned at Not on file Legal Sex Male 6:30 AM BIOINFORMATICS SCIENTIST Gender Identity Not on file Sexual Orientation Not on file documented as of this encounter Miscellaneous Notes * Office Visit - Taurus Jerry MD - 01/26/2010 12:14 AM CST Cardiology - Main Office Visit DATE OF SERVICE: 01/24/2010 PATIENT NAME: PASCALE BAILEY : 1945 REASON FOR FOLLOW UP: CAD. HISTORY OF PRESENT ILLNESS: This is a 64-year-old man with systemic hypertension, coronary artery disease, and dyslipidemia who presents for a follow-up assessment. Overall, he is doing well clinically, has no chest pain, no shortness of breath, no palpitations, no syncope, no near syncope. His blood pressure profile has been elevated over the last several weeks. By review of his lipids from January of 2009, there is a suboptimal LDL at 160. Repeat lipids and LFTs are pending. Otherwise, he has no complaints today. He is eager to obtain better control of his blood pressure and we have recommended several options including adding an MATTHEW inhibitor to his current regimen. PAST MEDICAL, PAST SURGICAL, SOCIAL, AND FAMILY HISTORY: Unchanged from our last visit. CURRENT MEDICATIONS: Noted and reviewed in the medical record. REVIEW OF SYSTEMS: As described above. PHYSICAL EXAMINATION: VITAL SIGNS: Blood pressure 168/88. Pulse 70 and regular. Respiratory rate normal at 10 to 12. GENERAL: Well-developed, well-nourished man in no apparent distress. CARDIAC: Regular rate and rhythm. No S3, no S4. LUNGS: Clear to auscultation bilaterally. No wheezes, rales or rhonchi. ABDOMEN: Soft, nontender, and nondistended with no palpable mass. EXT: Warm and well perfused. No cyanosis, clubbing or edema. DATA REVIEW: Otherwise, as detailed above. IMPRESSION: 1. Systemic hypertension, under suboptimal control. 2. CAD, no angina. 3. Dyslipidemia, suboptimal. RECOMMENDATIONS AND PLAN: 1. Recheck lipids and LFTs next available. 2. Add 20 mg of lisinopril once daily to current regimen. 3. Follow up with us in six months for repeat visit and in one week for a blood pressure check. Taurus Jerry MD TR: AB Conf #: [id number] Dictation ID: [id number] cc: (Signed in IC-Chart by Taurus Jerry MD on 2010-01-26 11:05:32) documented in this encounter Plan of Treatment Upcoming Encounters Date Type Department Care Team (Late st Contact Info) Description 02/09/2025 11:00 AM BIOINFORMATICS SCIENTIST Office Visit [facility] Urology [address] [place] [address] 1st [place] [address] Pascale Briggs MD [address] [place] [address] 02/25/2025 2:00 PM BIOINFORMATICS SCIENTIST Office Visit [facility] [address] [place] [address] Fran Prajapati MD [address] [place] [address] 02/27/2025 10:00 AM BIOINFORMATICS SCIENTIST Office Visit [address] [place] [address] Pancho English MD [address] [place] [address], [place] [address] 05/13/2025 3:10 PM BIOINFORMATICS SCIENTIST [facility] [address] [facility] [address] [place] [address] Chris Read FNP [address] [facility] [address] [place] [address] documented as of this encounter Visit Diagnoses Not on filedocumented in this encounter Additional Health Concerns Infection Onset Date Last Indicated Resolved Time COVID-19 pending 09/19/2019 09/19/2019 09/21/2019 6:36 AM CDT COVID-19 pending 10/21/2019 10/21/2019 10/22/2019 12:10 PM CDT Mycoplasma pending 10/22/2019 10/22/2019 0 6:05 PM CDT COVID-19 pending 03/08/2020 03/08/2020 03/08/2020 11:04 AM BIOINFORMATICS SCIENTIST COVID-19 pending 03/08/2020 03/08/2020 03/08/2020 2:29 PM BIOINFORMATICS SCIENTIST COVID-19/FLU/RSV pending 05/08/2020 05/08/2020 10:52 AM BIOINFORMATICS SCIENTIST Mycoplasma pending 05/08/2020 05/08/2020 1:00 PM BIOINFORMATICS SCIENTIST documented as of this encounter Care Teams City Solicitor Relationship Specialty Start Date End Date Mark Chery MD [address] [place] [address], [place] [address] PCP - General Family Medicine 12/06/16 06/12/22 Pancho English MD [address] [place] [address], [place] [address] PCP - General Family Medicine 06/13/22 Mark Chery MD [address] [place] [address], [place] [address] PCP - Attributed Provider-Medicare ACO 09/08/17 10/16/17 Mark Chery MD [address] [facility] [place] [address] PCP - Attributed Provider-Medicare ACO 12/09/17 03/25/18 Taurus Jerry MD Cardiology 05/06/14 05/20/20 Celestina Higgins, RN [address] [facility] [place] [address] CCM Matchbook Maker 03/21/17 05/09/17 Lorena Ariza, [facility] [address] [place] [place] [address] Dockworker 12/27/17 06/29/24 Merlene Wallis RN [address] [place] [facility] [place] [address] CCM Matchbook Maker 12/27/17 10/02/18 Milo Olson RN [address] [place] [facility] [place] [address] CCM Matchbook Maker 03/14/18 07/05/18 Osiris Mota RN [address] [place] [address] Oracle Etl Developer 08/25/21 09/23/21 Bernadette Bedolla RN [address] [place] [address] Oracle Etl Developer 06/30/24 documented as of this encounter
--- OUTSIDE RECORDS SUMMARY | 2025-01-30 18:36 | XMS_ITS | Encounter Summary ---
Author Organization [facility] Address [address] [place] [address] [place], [address] Care Team Providers Care Bracelet Maker Novelty Name Role Phone Taurus Jerry MD Unavailable [phone] Mark Chery MD Primary Care Provider [phone] Celestina Higgins RN Unavailable Unavaila Lorena Crenshaw [facility] Unavailable [phone] Merlene Wallis RN Unavailable Unavailable Milo Olson RN Unavailable Unavailable Osiris Mota RN Unavailable [phone] Pancho English MD Primary Care Provider [phone] Mark Chery MD Unavailable [phone] Mark Chery MD Unavailable [phone] Bernadette Bedolla RN Unavailable [phone] Encounter Details Date Type Department Care Team (Late st Contact Info) Description 08/01/2010 Historical Encounter HISTORICAL Provider, MD Twin [address] [facility] [place] [address] Social History Tobacco Use Types Packs/Day Years Used Date Smoking Tobacco: Never Assessed Sex and Gender Information Value Date Recorded Sex Assigned at Not on file Legal Sex Male 6:30 AM CURRICULUM MANAGER Gender Identity Not on file Sexual Orientation Not on file documented as of this encounter Plan of Treatment Upcoming Encounters Date Type Department Care Team (Late Contact Info) Description 02/09/2025 11:00 AM CURRICULUM MANAGER Office Visit [facility] [address] 1st [place] [address] Sha Briggs MD [address] [place] [address] 02/25/2025 2:00 PM CURRICULUM MANAGER Office Visit [facility] [address] [address] Fran Prajapati MD [address] [place] [address], [place] [address] 02/27/2025 10:00 AM CURRICULUM MANAGER Office Visit [address] [place] [address] Pancho English MD [address] [place] [address], [place] [address] 05/13/2025 3:10 PM CURRICULUM MANAGER [facility] [address] [place] [address] Chris Read FNP [address] [place] [address] documented as of this encounter Visit Diagnoses Not on filedocumented in this encounter Additional Health Concerns Infection Onset Date Last Indicated Resolved Time COVID-19 pending 09/19/2019 09/19/2019 09/21/2019 6:36 AM CDT COVID-19 pending 10/21/2019 10/21/2019 10/22/2019 12:10 PM CDT Mycoplasma pending 10/22/2019 10/22/2019 0 6:05 PM CDT COVID-19 pending 03/08/2020 03/08/2020 03/08/2020 11:04 AM CURRICULUM MANAGER COVID-19 pending 03/08/2020 03/08/2020 03/08/2020 2:29 PM CURRICULUM MANAGER COVID-19/FLU/RSV pending 05/08/2020 05/08/2020 10:52 AM CURRICULUM MANAGER Mycoplasma pending 05/08/2020 05/08/2020 1:00 PM CURRICULUM MANAGER documented as of this encounter Care Teams Bracelet Maker Novelty Relationship Specialty Start Date End Date Mark Chery MD [address] [place] [address], [place] [address] PCP - General Family Medicine 12/06/16 06/12/22 Pancho English MD [address] [place] [address], [place] [address] PCP - General Family Medicine 06/13/22 Mark Chery MD [address] [place] [address], [place] [address] PCP - Attributed Provider-Medicare ACO 09/08/17 10/16/17 Mark Chery MD [address] [place] [address], [place] [address] PCP - Attributed Provider-Medicare ACO 12/09/17 03/25/18 Taurus Jerry MD Cardiology 05/06/14 05/20/20 Celestina Higgins, RN [address] [facility] [place] [address] CCM Cash Accountant 03/21/17 05/09/17 Lorena Ariza LMSW [address] [place] [address], [place] [address] Professor Of Voice 12/27/17 06/29/24 Merlene Wallis RN [address] [place] [address], [place] [address] CCM Cash Accountant 12/27/17 10/02/18 Milo Olson RN [address] [place] [address], [place] [address] CCM Cash Accountant 03/14/18 07/05/18 Osiris Mota, SULY [address] [place] [address], [place] [address] Manager Exchange 08/25/21 09/23/21 Bernadette Bedolla RN [address] [place] [address], [place] [address] Manager Exchange 06/30/24 documented as of this encounter
--- OUTSIDE RECORDS SUMMARY | 2025-01-30 18:36 | XMS_ITS | Encounter Summary ---
Author Organization [facility] Address [address] [place] [address] [place], [address] Care Team Providers Care Powder Hand Name Role Phone Taurus Jerry MD Unavailable [phone] Mark Chery MD Primary Care Provider [phone] Celestina Higgins RN Unavailable Unavaila Lorena Crenshaw [facility] [place] [place] Unavailable [phone] Merlene Wallis RN Unavailable Unavailable Milo Olson RN Unavailable Unavailable Osiris Mota RN Unavailable [phone] Pancho English MD Primary Care Provider [phone] Mark Chery MD Unavailable [phone] Mark Chery MD Unavailable [phone] Bernadette Bedolla RN Unavailable [phone] Encounter Details Date Type Department Care Team (Late st Contact Info) Description 01/18/2009 Historical Encounter HISTORICAL Provider, MD Twin [address] [email or web address] [place] [address] Social History Tobacco Use Types Packs/Day Years Used Date Smoking Tobacco: Never Assessed Sex and Gender Information Value Date Recorded Sex Assigned at Not on file Legal Sex Male 6:30 AM BENCHROOM SHOP OPTICIAN Gender Identity Not on file Sexual Orientation Not on file documented as of this encounter Plan of Treatment Upcoming Encounters Date Type Department Care Team (Late st Contact Info) Description 02/09/2025 11:00 AM BENCHROOM SHOP OPTICIAN Office Visit [facility] Urology [address] 1st [place] [address] Sha Briggs MD [address] [place] [address] 02/25/2025 2:00 PM BENCHROOM SHOP OPTICIAN Office Visit Heart & Vascular [address] [address] Fran Prajapati MD [address] [place] [address], [place] [address] 02/27/2025 10:00 AM BENCHROOM SHOP OPTICIAN Office Visit [address] [place] [address] Pancho English MD [address] [place] [address], [place] [address] 05/13/2025 3:10 PM BENCHROOM SHOP OPTICIAN [facility] [address] [place] [address] Chris Read FNP [address] [place] [address] documented as of this encounter Visit Diagnoses Not on filedocumented in this encounter Additional Health Concerns Infection Onset Date Last Indicated Resolved Time COVID-19 pending 09/19/2019 09/19/2019 09/21/2019 6:36 AM CDT COVID-19 pending 10/21/2019 10/21/2019 10/22/2019 12:10 PM CDT Mycoplasma pending 10/22/2019 10/22/2019 0 6:05 PM CDT COVID-19 pending 03/08/2020 03/08/2020 03/08/2020 11:04 AM BENCHROOM SHOP OPTICIAN COVID-19 pending 03/08/2020 03/08/2020 03/08/2020 2:29 PM BENCHROOM SHOP OPTICIAN COVID-19/FLU/RSV pending 05/08/2020 05/08/2020 10:52 AM BENCHROOM SHOP OPTICIAN Mycoplasma pending 05/08/2020 05/08/2020 1:00 PM BENCHROOM SHOP OPTICIAN documented as of this encounter Care Teams Powder Hand Relationship Specialty Start Date End Date Mark Chery MD [address] [place] [address], [place] [address] PCP - General Family Medicine 12/06/16 06/12/22 Pancho Egnlish MD [address] [place] [address], [place] [address] PCP - General Family Medicine 06/13/22 Mark Chery MD [address] [place] [address], [place] [address] PCP - Attributed Provider-Medicare ACO 09/08/17 10/16/17 Mark Chery MD [address] [place] [address], [place] [address] PCP - Attributed Provider-Medicare ACO 12/09/17 03/25/18 Taurus Jerry MD Cardiology 05/06/14 05/20/20 Celestina Higgins, RN [address] [facility] [address] CCM Lubrication Equipment Servicer 03/21/17 05/09/17 Lorena Ariza LMSW [address] [place] [address], [place] [address] Corporate Controller 12/27/17 06/29/24 Merlene Wallis RN [address] [place] [address], [place] [address] CCM Lubrication Equipment Servicer 12/27/17 10/02/18 Milo Olson RN [address] [place] [address], [place] [address] CCM Lubrication Equipment Servicer 03/14/18 07/05/18 Osiris Mota, SULY [address] [place] [address], [place] [address] Helicopter Utility Aircrewman 08/25/21 09/23/21 Bernadette Bedolla RN [address] [place] [address], [place] [address] Helicopter Utility Aircrewman 06/30/24 documented as of this encounter
--- OUTSIDE RECORDS SUMMARY | 2025-01-30 18:36 | XMS_ITS | Encounter Summary ---
Author Organization [facility] Address [address] [address] Care Team Providers Care Hydropulper Name Role Phone Taurus Jerry MD Unavailable [phone] Mark Chery MD Primary Care Provider [phone] Celestina Higgins RN Unavailable Unavaila Lorena Crenshaw [facility] Unavailable [phone] Merlene Wallis RN Unavailable Unavailable Milo Olson RN Unavailable Unavailable Osiris Mota RN Unavailable [phone] Pancho English MD Primary Care Provider [phone] Mark Chery MD Unavailable [phone] Mark Chery MD Unavailable [phone] Bernadette Bedolla RN Unavailable [phone] Encounter Details Date Type Department Care Team (Late st Contact Info) Description 08/02/2010 Historical Encounter Heart & Vascular [address] [facility] [place] [address] Taurus Jerry MD [address] [facility] [address] [facility] [place] [address] Social History Tobacco Use Types Packs/Day Years Used Date Smoking Tobacco: Never Assessed Sex and Gender Information Value Date Recorded Sex Assigned at Not on file Legal Sex Male 6:30 AM ASSISTANT OPERATOR Gender Identity Not on file Sexual Orientation Not on file documented as of this encounter Miscellaneous Notes * Office Visit - Taurus Jerry MD - 08/02/2010 1:44 PM CDT Cardiology - Main Office Visit DATE OF SERVICE: 08/01/2010 PATIENT NAME: PASCALE BAILEY : 1945 REASON FOR FOLLOW UP: CAD. HISTORY OF PRESENT ILLNESS: This is a 64-year-old man with hypertension, CAD, dyslipidemia, and preserved left ventricular function by echo in December of 2006. He presents today for a follow-up assessment and is doing well clinically with no chest pain, no shortness of breath, no palpitations, no syncope, no near syncope. He has had suboptimal LDL in the past with most recent lipid assessment in January of 2009 with an LDL of 160. Repeat studies are pending for today. Blood pressure has also been suboptimal and he indicates the Coreg generic version has been ineffective. He would like to go back to the sustained release formulation. PAST MEDICAL, PAST SURGICAL, SOCIAL, AND FAMILY HISTORY: Unchanged from our last visit. CURRENT MEDICATIONS: Noted and reviewed in the medical record. REVIEW OF SYSTEMS: As described above. PHYSICAL EXAMINATION: VITAL SIGNS: Blood pressure 144/78. Pulse 65 and regular. Respiratory rate normal at 10 to 12. GENERAL: Well-developed, well-nourished male in no apparent distress. CARDIAC: Regular rate and rhythm. No S3, no S4. LUNGS: Clear to auscultation bilaterally. No wheezes, rales or rhonchi. ABDOMEN: Soft, nontender and nondistended with no palpable mass. EXT: Warm and well perfused. No cyanosis, clubbing or edema. DATA REVIEW: Otherwise, as detailed above. IMPRESSION: 1. Systemic hypertension, under suboptimal control. 2. Dyslipidemia. 3. CAD, no angina. 4. Obesity. RECOMMENDATIONS AND PLAN: 1. Discontinue generic Coreg/carvedilol and initiate Coreg CR 40 mg p.o. once daily. A prescription was provided today. 2. Continue current medical profile as detailed above. 3. Repeat lipids/LFTs pending and we will titrate statin based on follow-up values obtainable later today. Taurus Jerry MD TR: BTR/PTB Conf #: [id number] Dictation ID: [id number] cc: (Signed in IC-Chart by Taurus Jerry MD on 2010-08-05 08:41:44) documented in this encounter Plan of Treatment Upcoming Encounters Date Type Department Care Team (Late st Contact Info) Description 02/09/2025 11:00 AM ASSISTANT OPERATOR Office Visit [facility] Urology [address] [place] [address] 1st [place] [address] Pascale Briggs MD [address] [place] [address], [place] [address] 02/25/2025 2:00 PM ASSISTANT OPERATOR Office Visit Heart & Vascular [address] [place] [address], [place] [address] Fran Prajapati MD [address] [place] [address], [place] [address] 02/27/2025 10:00 AM ASSISTANT OPERATOR Office Visit [address] [place] [address] Pancho English MD [address] [place] [address], [place] [address] 05/13/2025 3:10 PM ASSISTANT OPERATOR [facility] Visit [facility] [address] [place] [address] Chris Read FNP [address] [place] [address] documented as of this encounter Visit Diagnoses Not on filedocumented in this encounter Additional Health Concerns Infection Onset Date Last Indicated Resolved Time COVID-19 pending 09/19/2019 09/19/2019 09/21/2019 6:36 AM CDT COVID-19 pending 10/21/2019 10/21/2019 10/22/2019 12:10 PM CDT Mycoplasma pending 10/22/2019 10/22/2019 0 6:05 PM CDT COVID-19 pending 03/08/2020 03/08/2020 03/08/2020 11:04 AM ASSISTANT OPERATOR COVID-19 pending 03/08/2020 03/08/2020 03/08/2020 2:29 PM ASSISTANT OPERATOR COVID-19/FLU/RSV pending 05/08/2020 05/08/2020 10:52 AM ASSISTANT OPERATOR Mycoplasma pending 05/08/2020 05/08/2020 1:00 PM ASSISTANT OPERATOR documented as of this encounter Care Teams Hydropulper Relationship Specialty Start Date End Date Mark Chery MD [address] [place] [address], [place] [address] PCP - General Family Medicine 12/06/16 06/12/22 Pancho English MD [address] [place] [address], [place] [address] PCP - General Family Medicine 06/13/22 Mark Chery MD [address] [place] [address], [place] [address] PCP - Attributed Provider-Medicare ACO 09/08/17 10/16/17 Mark Chery MD [address] [place] [address], [place] [address] PCP - Attributed Provider-Medicare ACO 12/09/17 03/25/18 Taurus Jerry MD Cardiology 05/06/14 05/20/20 Celestina Higgins, RN [address] [place] [address] CCM Video Production Engineer 03/21/17 05/09/17 Lorena Ariza [facility] [address] [place] [address] Patient Day Coordinator 12/27/17 06/29/24 Merlene Wallis RN [address] [place] [address] CCM Video Production Engineer 12/27/17 10/02/18 Milo Olson RN [address] [place] [address] CCM Video Production Engineer 03/14/18 07/05/18 Osiris Mota, RN [address] [place] [address] Seam Finisher 08/25/21 09/23/21 Bernadette Bedolla RN [address] [place] [address] Seam Finisher 06/30/24 documented as of this encounter
--- OUTSIDE RECORDS SUMMARY | 2025-01-30 18:36 | XMS_ITS | Encounter Summary ---
Author Organization [facility] Address [address] [place] [address] Care Team Providers Care Rag Room Supervisor Name Role Phone AnnitaLorena Adolfo [facility] Unavailable [phone] Pancho English MD Primary Care Provider [phone] Bernadette Bedolla RN Unavailable [phone] Reason for Visit * Reason Onset Date Comments Medication Refill 01/03/2023 Encounter Details Date Type Department Care Team (Late st Contact Info) Description [facility]/03[facility]20[facility] [address] [place] [address] Juan Carlos Ruiz MD [address] [facility] [place] [address] Medication Refill Social History Tobacco Use Types Packs/Day Years Used Date Smoking Tobacco: Former Cigarettes Q uit: 1992 Pipe Smokeless Tobacco: Former Chew Quit: 1992 Alcohol Use Standard Drinks/Week Comments No 0 (1 standard drink = 0.6 oz pur e alcohol) PHQ-2 Answer Date Recorded PHQ-2 Total Score 6 06/08/2022 Education Answer Date Recorded What is the highest level of school you have completed or the highest degree you have received? Associate degree: occupational, technical, or vocational program 08/30/2020 Sex and Gender Information Value Date Recorded Sex Assigned at Not on file Legal Sex Male 6:30 AM WELDER SHIELDED METAL ARC Gender Identity Not on file Sexual Orientation Not on file documented as of this encounter Functional Status * Hearing - Left Ear Answer Date of Assessment Author Yes 05/05/2022 1:00 PM WELDER SHIELDED METAL ARC Esther Lawton, SULY * *Are you blind or serious difficulty even w/glasses? Answer Date of Assessment Author No 05/05/2022 1:00 PM WELDER SHIELDED METAL ARC Esther Lawton, RN * *Walks in Home Answer Date of Assessment Author No 05/05/2022 1:00 PM WELDER SHIELDED METAL ARC Esther Lawton, RN * *Bathing Answer Date of Assessment Author No 05/05/2022 1:00 PM WELDER SHIELDED METAL ARC Esther Lawton, RN * *Due to conditions difficulty w/ independent errands,shopping? Answer Date of Assessment Author No 05/05/2022 1:00 PM WELDER SHIELDED METAL ARC Esther Lawton RN documented as of this encounter Mental Status * *Due to conditions have difficulty w/decisions Answer Entry Date Author No 05/05/2022 1:00 PM WELDER SHIELDED METAL ARC Ady Max MD documented in this encounter Miscellaneous Notes * Telephone Encounter - Moni Nguyen LPN - 01/03/2023 10:21 AM CDT Advised patient Dr. Ruiz is out of office, can get refill Tramadol at time of follow up appointment on 01/11/23. * Telephone Encounter - Jacquelyn Sheldon - 01/03/2023 9:25 AM CDT Patient is needing refill for Tramadol l50 mg sent to [facility] documented in this encounter Plan of Treatment Upcoming Encounters Date Type Department Care Team (Late st Contact Info) Description 02/09/2025 11:00 AM WELDER SHIELDED METAL ARC Office Visit [facility] Urology [address] 1st Floor [place], [address] Sha Briggs MD [address] [facility] [place], [phone] 02/25/2025 2:00 PM WELDER SHIELDED METAL ARC Office Visit Heart & Vascular [address] [place] [address] Fran Prajapati MD [address] [facility] [place], [address] 02/27/2025 10:00 AM WELDER SHIELDED METAL ARC Office Visit [address] [place] [address] Pancho English MD [address] [place] [address], [place] [address] 05/13/2025 3:10 PM WELDER SHIELDED METAL ARC [facility] [address] [facility] [address] Chris Read FNP [address] [place] [address] documented as of this encounter [...] On track(2024 2:33 PM CDT) No Celestina Higgins, RN Note: Maintain pressure on skin tears [...] track(2024 2:34 PM CDT) No Celestina Higgins, RN Report any weight gain of three [...] on filedocumented in this encounter Care Teams Rag Room Supervisor Relationship Specialty Start Date End Date Pancho English MD [address] [facility] [place] [place] [address] PCP - General Family Medicine 06/13/22 Lorena Ariza LMSW [address] [place] [address] [place] [address] Installer Metal Flooring 12/27/17 06/29/24 Bernadette Bedolla RN [address] [place] [address] [place] [address] Specialty Foods Cook 06/30/24 documented as of this encounter
--- OUTSIDE RECORDS SUMMARY | 2025-01-30 18:36 | XMS_ITS | Encounter Summary ---
Author Organization [facility] Address [address] [place] [address] Care Team Providers Care Stump Blower Name Role Phone Taurus Jerry MD Unavailable [phone] Mark Chery MD Primary Care Provider [phone] Celestina Higgins RN Unavailable Unavaila Lorena Crenshaw [facility] Unavailable [phone] Merlene Wallis RN Unavailable Unavailable Milo Olson RN Unavailable Unavailable Osiris Mota RN Unavailable [phone] Pancho English MD Primary Care Provider [phone] Mark Chery MD Unavailable [phone] Mark Chery MD Unavailable [phone] Bernadette Bedolla RN Unavailable [phone] Encounter Details Date Type Department Care Team (Late st Contact Info) Description 04/09/2008 Historical Encounter Heart & Vascular [address] [place] [address] Taurus Jerry MD [address] [facility] [address] [facility] [place] [address] Social History Tobacco Use Types Packs/Day Years Used Date Smoking Tobacco: Never Assessed Sex and Gender Information Value Date Recorded Sex Assigned at Not on file Legal Sex Male 6:30 AM LOGISTICS PLANNING MANAGER Gender Identity Not on file Sexual Orientation Not on file documented as of this encounter Miscellaneous Notes * Office Visit - Taurus Jerry MD - 04/09/2008 11:28 AM CST Cardiology - Main Office Visit DATE OF SERVICE: 04/07/2008 PATIENT NAME: PASCALE BAILEY : 1945 REASON FOR FOLLOW UP: CAD and hypertension. HISTORY OF PRESENT ILLNESS: The patient is a very pleasant 62-year-old man with hypertension and coronary artery disease who underwent a drug-eluting stent procedure to the left anterior descending coronary artery in December of 2006. 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 He has no limitations and has certainly been cleared at this point to return to regular gainful employment. He has no chest pain, no shortness of breath, no palpitations, no syncope, no near syncope. He has noticed that his blood pressure has been somewhat more difficult to control as of late. We discussed his medical regimen in detail including the need to change from Toprol to more effective beta blocking agent which I have recommended Coreg for. PAST MEDICAL, PAST SURGICAL, SOCIAL, and FAMILY HISTORY: Unchanged from our last clinic visit August 26, 2007 at [facility]. REVIEW OF SYSTEMS: As described above. PHYSICAL EXAMINATION: VITAL SIGNS: Blood pressure 158/80. Pulse 65 and regular. Respiratory rate normal at 10 to 12. GENERAL: Well-developed, well-nourished, man in no apparent distress. CARDIAC: Regular rate and rhythm. No murmurs, gallops or rubs. LUNGS: Clear to auscultation bilaterally. No wheezes, rales or rhonchi. ABDOMEN: Soft, nontender, and nondistended with no palpable mass. EXT: Warm and well perfused. No cyanosis, clubbing or edema. DATA REVIEW: As referenced above. IMPRESSION: 1. Systemic hypertension, not optimally controlled. 2. Coronary artery disease with no recurrent anginal symptoms. 3. Dyslipidemia with repeat lipids pending currently on statin based therapy. RECOMMENDATIONS AND PLAN: 1. We will discontinue Toprol and add Coreg CR. 2. We will check a fasting lipid profile. 3. Follow up with us in six months. Taurus Jerry MD TR: BTR/CG Conf #: [id number] Dictation ID: [id number] cc: (Signed in IC-Chart by Taurus Jerry MD on 2008-04-17 13:14:47) documented in this encounter Plan of Treatment Upcoming Encounters Date Type Department Care Team (Late st Contact Info) Description 02/09/2025 11:00 AM LOGISTICS PLANNING MANAGER Office Visit [facility] Urology [address] [place] [address] 1st [place] [address] Pascale Briggs MD [address] [place] [address], [place] [phone] 02/25/2025 2:00 PM LOGISTICS PLANNING MANAGER Office Visit Heart & Vascular [address] [place] [address], [place] [address] Fran Prajapati MD [address] [place] [address], [place] [address] 02/27/2025 10:00 AM LOGISTICS PLANNING MANAGER Office Visit [address] [place] [address] Pancho English MD [address] [place] [address], [place] [address] 05/13/2025 3:10 PM LOGISTICS PLANNING MANAGER [facility] [address] [facility] [address] [place] [address] Chris Read FNP [address] [place] [address] documented as of this encounter Visit Diagnoses Not on filedocumented in this encounter Additional Health Concerns Infection Onset Date Last Indicated Resolved Time COVID-19 pending 09/19/2019 09/19/2019 09/21/2019 6:36 AM CDT COVID-19 pending 10/21/2019 10/21/2019 10/22/2019 12:10 PM CDT Mycoplasma pending 10/22/2019 10/22/2019 0 6:05 PM CDT COVID-19 pending 03/08/2020 03/08/2020 03/08/2020 11:04 AM LOGISTICS PLANNING MANAGER COVID-19 pending 03/08/2020 03/08/2020 03/08/2020 2:29 PM LOGISTICS PLANNING MANAGER COVID-19/FLU/RSV pending 05/08/2020 05/08/2020 10:52 AM LOGISTICS PLANNING MANAGER Mycoplasma pending 05/08/2020 05/08/2020 1:00 PM LOGISTICS PLANNING MANAGER documented as of this encounter Care Teams Stump Blower Relationship Specialty Start Date End Date Mark Chery MD [address] [place] [address], [place] [address] PCP - General Family Medicine 12/06/16 06/12/22 Pancho English MD [address] [place] [address], [place] [address] PCP - General Family Medicine 06/13/22 Mark Chery MD [address] [place] [address], [place] [address] PCP - Attributed Provider-Medicare ACO 09/08/17 10/16/17 [place] [address] [place] [address] PCP - Attributed Provider-Medicare ACO 12/09/17 03/25/18 Taurus Jerry MD Cardiology 05/06/14 05/20/20 Celestina Higgins, RN [address] , [place] [address] CCM Barrel Stave Inspector 03/21/17 05/09/17 Lorena Ariza, [facility] [address] [place] [address] Stainless Steel Finisher 12/27/17 06/29/24 Merlene Wallis RN [address] [place] [address], [place] [address] CCM Barrel Stave Inspector 12/27/17 10/02/18 Milo Olson RN [address] [place] [address], [place] [address] CCM Barrel Stave Inspector 03/14/18 07/05/18 Osiris Mota, RN [address] [place] [address], [place] [address] Truck Body Builder Apprentice 08/25/21 09/23/21 Bernadette Bedolla, SULY [address] [place] [address] Truck Body Builder Apprentice 06/30/24 documented as of this encounter
--- OUTSIDE RECORDS SUMMARY | 2025-01-30 18:36 | XMS_ITS | Encounter Summary ---
Author Organization [facility] Address [address] [place] [address] Care Team Providers Care 911 Telecommunicator Name Role Phone Taurus Jerry MD Unavailable [phone] Mark Chery MD Primary Care Provider [phone] Celestina Higgins RN Unavailable Unavaila Lorena Crenshaw [facility] [place] Unavailable [phone] Merlene Wallis RN Unavailable Unavailable Milo Olson RN Unavailable Unavailable Osiris Mota RN Unavailable [phone] Pancho English MD Primary Care Provider [phone] Mark Chery MD Unavailable [phone] Mark Chery MD Unavailable [phone] Bernadette Bedolla RN Unavailable [phone] Encounter Details Date Type Department Care Team (Late st Contact Info) Description 01/22/2009 Historical Encounter Heart & Vascular [address] [facility] [place] [address] Taurus Jerry MD 315 [facility] [address] [facility] [place] [address] Social History Tobacco Use Types Packs/Day Years Used Date Smoking Tobacco: Never Assessed Sex and Gender Information Value Date Recorded Sex Assigned at Not on file Legal Sex Male 6:30 AM POCKET SETTER Gender Identity Not on file Sexual Orientation Not on file documented as of this encounter Miscellaneous Notes * Miscellaneous - Taurus Jerry MD - 01/22/2009 3:13 PM CST - Date: 01/22/2009 Sha Bailey [address] [place], [place]-[id number] Dear Sha Bailey: - Recently our office tried to contact you to discuss your test results or to return a message that was received. We were unable to reach you to discuss your results or message. Please contact our office at your convenience to discuss these results. - Our number is [phone], - Sincerely, - [facility] documented in this encounter Plan of Treatment Upcoming Encounters Date Type Department Care Team (Late st Contact Info) Description 02/09/2025 11:00 AM POCKET SETTER Office Visit [facility] Urology [address] [place] [address] 1st [place] [address] Sha Briggs MD [address] [place] [address] 02/25/2025 2:00 PM POCKET SETTER Office Visit Heart & Vascular [address] [place] [address] Fran Prajapati MD [address] [place] [address] 02/27/2025 10:00 AM POCKET SETTER Office Visit [address] [place] [address] Pancho English MD [address] [place] [address], [place] [address] 05/13/2025 3:10 PM POCKET SETTER [facility] [address] [address] [address] [place] [address] Chris Read, PHOTOGRAPHER'S MODEL [address] [facility] [address] [facility] [place] [address] documented as of this encounter Visit Diagnoses Not on filedocumented in this encounter Additional Health Concerns Infection Onset Date Last Indicated Resolved Time COVID-19 pending 09/19/2019 09/19/2019 09/21/2019 6:36 AM CDT COVID-19 pending 10/21/2019 10/21/2019 10/22/2019 12:10 PM CDT Mycoplasma pending 10/22/2019 10/22/2019 0 6:05 PM CDT COVID-19 pending 03/08/2020 03/08/2020 03/08/2020 11:04 AM POCKET SETTER COVID-19 pending 03/08/2020 03/08/2020 03/08/2020 2:29 PM POCKET SETTER COVID-19/FLU/RSV pending 05/08/2020 05/08/2020 10:52 AM POCKET SETTER Mycoplasma pending 05/08/2020 05/08/2020 1:00 PM POCKET SETTER documented as of this encounter Care Teams 911 Telecommunicator Relationship Specialty Start Date End Date Mark Chery MD [address] [place] [address], [place] [address] PCP - General Family Medicine 12/06/16 06/12/22 Pancho English MD [address] [place] [phone] PCP - General Family Medicine 06/13/22 Mark Chery MD [address] [place] [address], [place] [address] PCP - Attributed Provider-Medicare ACO 09/08/17 10/16/17 Mark Chery MD [address] [place] [address] PCP - Attributed Provider-Medicare ACO 12/09/17 03/25/18 Taurus Jerry MD Cardiology 05/06/14 05/20/20 Celestina Higgins, RN [address] [place] [address] CCM Skull Grinder 03/21/17 05/09/17 Lorena Ariza [facility] [place] [address] [place] [address] Outside Maintenance Worker 12/27/17 06/29/24 Merlene Wallis RN [address] [place] [address] CCM Skull Grinder 12/27/17 10/02/18 Milo Olson RN [address] [place] [address] CCM Skull Grinder 03/14/18 07/05/18 Osiris Mota, SULY [address] [place] [address] Truck Driver'S Offsider 08/25/21 09/23/21 Bernadette Bedolla, RN [address] [place] [address] Truck Driver'S Offsider 06/30/24 documented as of this encounter
--- OUTSIDE RECORDS SUMMARY | 2025-01-30 18:36 | XMS_ITS | Encounter Summary ---
Author Organization [facility] Address [address] [place] [address] Care Team Providers Care Upper Inspector Name Role Phone Taurus Jerry MD Unavailable [phone] Mark Chery MD Primary Care Provider [phone] Celestina Higgins RN Unavailable Unavaila Lorena Crenshaw [facility] [place] Unavailable [phone] Merlene Wallis RN Unavailable Unavailable Milo Olson RN Unavailable Unavailable Osiris Mota RN Unavailable [phone] Pancho English MD Primary Care Provider [phone] Mark Chery MD Unavailable [phone] Mark Chery MD Unavailable [phone] Bernadette Bedolla RN Unavailable [phone] Encounter Details Date Type Department Care Team (Late st Contact Info) Description 01/19/2009 Historical Encounter Heart & Vascular [address] [facility] [address] Taurus Jerry MD 315 [facility] [address] [facility] [place] [address] Social History Tobacco Use Types Packs/Day Years Used Date Smoking Tobacco: Never Assessed Sex and Gender Information Value Date Recorded Sex Assigned at Not on file Legal Sex Male 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 HISTORY OF PRESENT ILLNESS: Mr. Bailey is a 63-year-old man with a history of coronary disease which has been stable following a PCI procedure of the left anterior descending in December of 2006. He has remained on dual antiplatelet therapy. He is safe at this point to withhold Plavix for any elective procedures but he would like to continue with dual antiplatelet therapy and I recommend that that is a reasonable option as long as he is able to obtain Plavix and has no contraindications. PAST MEDICAL, PAST SURGICAL, SOCIAL, AND FAMILY HISTORY: Otherwise, unchanged from our last visit. CURRENT MEDICATIONS: Noted and reviewed in the medical record. REVIEW OF SYSTEMS: No chest pain, no shortness of breath, no palpitations, no syncope, no near syncope. 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 He is currently involved with some family financial disputes that have caused some increased anxiety. Nevertheless, he is doing well clinically. I have recommended he obtain a primary care physician. PAST MEDICAL, PAST SURGICAL, SOCIAL, AND FAMILY HISTORY: Unchanged from our last visit. CURRENT MEDICATIONS: Noted and reviewed in the medical record. REVIEW OF SYSTEMS: As noted above. PHYSICAL EXAMINATION: VITAL SIGNS: Blood pressure 123/70. Pulse 65 and regular. Respiratory rate normal at 10 to 12. GENERAL: Well-developed, well-nourished man in no apparent distress. CARDIAC: Regular rate and rhythm. No murmurs, gallops or rubs. LUNGS: Clear to auscultation bilaterally. No wheezes, rales or rhonchi. ABDOMEN: Soft, nontender, and nondistended with no palpable mass. EXT: Warm and well perfused. No cyanosis, clubbing or edema. DATA REVIEW: Otherwise, as referenced above. IMPRESSION: 1. Systemic hypertension, under excellent control. 2. Dyslipidemia with target LDL noted at the last assessment with repeat lipids/LFTs pending. 3. CAD with no recurrent angina. 4. Obesity, not controlled. RECOMMENDATIONS AND PLAN: 1. Continue current medical profile as outlined above. 2. Have recommended diet and lifestyle modification with exercise. 3. Follow up with us in 12 months. 4. Enroll in primary care. Taurus Jerry MD TR: SELENA/LORIE Conf #: [id number] Dictation ID: [id number] cc: (Signed in IC-Chart by Taurus Jerry MD on 2009-01-27 09:38:47) documented in this encounter Plan of Treatment Upcoming Encounters Date Type Department Care Team (Late st Contact Info) Description 02/09/2025 11:00 AM AIRPORT OPERATIONS SUPERVISOR Office Visit [facility] Urology [address] [place] [address] 1st [place] [address] Pascale Briggs MD [address] [place] [address] 02/25/2025 2:00 PM AIRPORT OPERATIONS SUPERVISOR Office Visit Heart & Vascular [address] [place] [address], [place] [address] Fran Prajapati MD [address] [place] [address] 02/27/2025 10:00 AM AIRPORT OPERATIONS SUPERVISOR Office Visit [address] [place] [address] Pancho English MD [address] [place] [address], [place] [address] 05/13/2025 3:10 PM AIRPORT OPERATIONS SUPERVISOR [facility] Visit [facility] [address] [place] [address] Chris Read, CLAY ARTIST [address] [facility] [place] [address] documented as of this encounter Visit Diagnoses Not on filedocumented in this encounter Additional Health Concerns Infection Onset Date Last Indicated Resolved Time COVID-19 pending 09/19/2019 09/19/2019 09/21/2019 6:36 AM CDT COVID-19 pending 10/21/2019 10/21/2019 10/22/2019 12:10 PM CDT Mycoplasma pending 10/22/2019 10/22/2019 0 6:05 PM CDT COVID-19 pending 03/08/2020 03/08/2020 03/08/2020 11:04 AM AIRPORT OPERATIONS SUPERVISOR COVID-19 pending 03/08/2020 03/08/2020 03/08/2020 2:29 PM AIRPORT OPERATIONS SUPERVISOR COVID-19/FLU/RSV pending 05/08/2020 05/08/2020 10:52 AM AIRPORT OPERATIONS SUPERVISOR Mycoplasma pending 05/08/2020 05/08/2020 1:00 PM AIRPORT OPERATIONS SUPERVISOR documented as of this encounter Care Teams Upper Inspector Relationship Specialty Start Date End Date Mark Chery MD [address] [place] [address], [place] [address] PCP - General Family Medicine 12/06/16 06/12/22 Pancho English MD [address] [place] [address], [place] [address] PCP - General Family Medicine 06/13/22 Mark Chery MD [address] [place] [address], [place] [address] PCP - Attributed Provider-Medicare ACO 09/08/17 10/16/17 Mark Chery MD 822 [place] [address] PCP - Attributed Provider-Medicare ACO 12/09/17 03/25/18 Taurus Jerry MD Cardiology 05/06/14 05/20/20 Celestina Higgins, RN 822 [facility] [place] [address] CCM Technical Adjuster 03/21/17 05/09/17 Lorena Ariza [facility] [address] [place] [address], [place] [address] Opinion Polls Survey Worker 12/27/17 06/29/24 Merlene Wallis RN [address] [place] [address], [place] [address] CCM Technical Adjuster 12/27/17 10/02/18 Milo Olson RN [address] [place] [address], [place] [address] CCM Technical Adjuster 03/14/18 07/05/18 Osiris Mota, RN [address] [place] [address], [place] [address] Reprographics Technician 08/25/21 09/23/21 Bernadette Bedolla, RN [address] [place] [address] Reprographics Technician 06/30/24 documented as of this encounter
--- OUTSIDE RECORDS SUMMARY | 2025-01-30 18:36 | XMS_ITS | Encounter Summary ---
Author Organization [facility] Address [address] [place] [address] [place], [address] Care Team Providers Care Flat Cutter Name Role Phone Taurus Jerry MD Unavailable [phone] Mark Chery MD Primary Care Provider [phone] Celestina Higgins RN Unavailable Unavaila Lorena Crenshaw [facility] [facility] [place] Unavailable [phone] Merlene Wallis RN Unavailable Unavailable Milo Olson RN Unavailable Unavailable Osiris Mota RN Unavailable [phone] Pancho English MD Primary Care Provider [phone] Mark Chery MD Unavailable [phone] Mark Chery MD Unavailable [phone] Bernadette Bedolla RN Unavailable [phone] Encounter Details Date Type Department Care Team (Late st Contact Info) Description 04/07/2008 Historical Encounter HISTORICAL Provider, MD [place] [address] [facility] [place] [address] Social History Tobacco Use Types Packs/Day Years Used Date Smoking Tobacco: Never Assessed Sex and Gender Information Value Date Recorded Sex Assigned at Not on file Legal Sex Male 6:30 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 RANCH 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 Gender Identity Not on file Sexual Orientation Not on file documented as of this encounter Plan of Treatment Upcoming Encounters Date Type Department Care Team (Late st Contact Info) Description 02/09/2025 11:00 AM STOCK RANCH SUPERVISOR Office Visit [facility] Urology [address] 1st [place] [address] Sha Briggs MD [address] [facility] [place] [phone] 02/25/2025 2:00 PM STOCK RANCH SUPERVISOR Office Visit Heart & Vascular [address] [place] [address] Fran Prajapati MD [address] [place] [address], [place] [address] 02/27/2025 10:00 AM STOCK RANCH SUPERVISOR Office Visit [address] [place] [address] Pancho English MD [address] [place] [address], [place] [address] 05/13/2025 3:10 PM STOCK RANCH SUPERVISOR [facility] [address] [place] [address] Chris Read FNP [address] [place] [address] documented as of this encounter Visit Diagnoses Not on filedocumented in this encounter Additional Health Concerns Infection Onset Date Last Indicated Resolved Time COVID-19 pending 09/19/2019 09/19/2019 09/21/2019 6:36 AM CDT COVID-19 pending 10/21/2019 10/21/2019 10/22/2019 12:10 PM CDT Mycoplasma pending 10/22/2019 10/22/2019 0 6:05 PM CDT COVID-19 pending 03/08/2020 03/08/2020 03/08/2020 11:04 AM STOCK RANCH SUPERVISOR COVID-19 pending 03/08/2020 03/08/2020 03/08/2020 2:29 PM STOCK RANCH SUPERVISOR COVID-19/FLU/RSV pending 05/08/2020 05/08/2020 10:52 AM STOCK RANCH SUPERVISOR Mycoplasma pending 05/08/2020 05/08/2020 1:00 PM STOCK RANCH SUPERVISOR documented as of this encounter Care Teams Flat Cutter Relationship Specialty Start Date End Date Mark Chery MD [address] [place] [address], [place] [address] PCP - General Family Medicine 12/06/16 06/12/22 Pancho English MD [address] [place] [address], [place] [address] PCP - General Family Medicine 06/13/22 Mark Chery MD [address] [place] [address], [place] [address] PCP - Attributed Provider-Medicare ACO 09/08/17 10/16/17 Mark Chery MD [address] [place] [address], [place] [address] PCP - Attributed Provider-Medicare ACO 12/09/17 03/25/18 Taurus Jerry MD Cardiology 05/06/14 05/20/20 Celestina Higgins, RN 822 [place] [address] CCM Drapery Maker 03/21/17 05/09/17 Lorena Ariza LMSW [address] [place] [address], [place] [address] Wood Furniture Assembler 12/27/17 06/29/24 Merlene Wallis RN [address] [place] [address], [place] [address] CCM Drapery Maker 12/27/17 10/02/18 Milo Olson RN [address] [place] [address], [place] [address] CCM Drapery Maker 03/14/18 07/05/18 Osiris Mota, SULY [address] [place] [address], [place] [address] Bone Puller 08/25/21 09/23/21 Bernadette Bedolla RN [address] [place] [address], [place] [address] Bone Puller 06/30/24 documented as of this encounter
--- OUTSIDE RECORDS SUMMARY | 2025-01-30 18:36 | XMS_ITS | Encounter Summary ---
Author Organization [facility] Address [address] [place], [address] Care Team Providers Care Assignment Manager Name Role Phone Taurus Jerry MD Unavailable [phone] Mark Chery MD Primary Care Provider [phone] Celestina Higgins RN Unavailable Unavaila ble Lorena Ariza [facility] Unavailable [phone] Merlene Wallis RN Unavailable Unavailable Milo Olson RN Unavailable Unavailable Osiris Mota RN Unavailable [phone] Pancho English MD Primary Care Provider [phone] Mark Chery MD Unavailable [phone] Mark Chery MD Unavailable [phone] Bernadette Bedolla RN Unavailable [phone] Encounter Details Date Type Department Care Team (Late st Contact Info) Description 03/01/2010 Historical Encounter [facility] [address] [place], [address] Pascale Pavon MD [address] [facility] [place], [address] Social History Tobacco Use Types Packs/Day Years Used Date Smoking Tobacco: Never Assessed Sex and Gender Information Value Date Recorded Sex Assigned at Not on file Legal Sex Male 6:30 AM UTILITY PLANT 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 He thinks he is mainly under stress. He lost a loved one this time of year last year. He said his headaches tend to be bitemporal. He is working. His medications are as listed in IC chart. He said he had been on lisinopril but another doctor discontinued that because he was coughing and he was started on Diovan 320/12.5, which he has been taking recently without problems. That was not reflected on his medication list. OBJECTIVE: Vital signs: Weight 209.8. Temperature is 98.1. Pulse is 80. Blood pressure was 159 and repeat was 150/75. Pupils are round. Disks are sharp. Nose and throat are benign. Neck is supple. Chest is clear. Heart has regular rate and rhythm. Abdomen is soft, nontender. Bowel sounds are normal. He has bilateral temporal tenderness. LABORATORY/X-RAY: Sed rate is normal. ASSESSMENT: 1. Muscle tension headaches. 2. Elevated blood pressure. PLAN: I gave him samples of his Diovan 320/12.5 enough to get by until he gets in to see a primary care doctor. He denies any current coronary symptoms. He is status post stent to his LAD. Pascale Pavon MD TR: MARY Conf #: [id number] Dictation ID: [id number] cc: (Signed in IC-Chart by John. Norbert Pavon MD, PhD on 2010-03-01 15:19:14) documented in this encounter Plan of Treatment Upcoming Encounters Date Type Department Care Team (Late st Contact Info) Description 02/09/2025 11:00 AM UTILITY PLANT OPERATIVE Office Visit [facility] Urology [address] 1st [place] [address] Pascale Briggs MD [address] [place] [address] 02/25/2025 2:00 PM UTILITY PLANT OPERATIVE Office Visit Heart & Vascular [address] [place] [address] Fran Prajapati MD [address] [place] [address], [place] [address] 02/27/2025 10:00 AM UTILITY PLANT OPERATIVE Office Visit [address] [place] [address] Pancho English MD [address] [place] [address], [place] [address] 05/13/2025 3:10 PM UTILITY PLANT OPERATIVE [facility] [address] [facility] [address] [place] [address] Chris Read FNP [address] [place] [address] documented as of this encounter Visit Diagnoses Not on filedocumented in this encounter Additional Health Concerns Infection Onset Date Last Indicated Resolved Time COVID-19 pending 09/19/2019 09/19/2019 09/21/2019 6:36 AM CDT COVID-19 pending 10/21/2019 10/21/2019 10/22/2019 12:10 PM CDT Mycoplasma pending 10/22/2019 10/22/2019 0 6:05 PM CDT COVID-19 pending 03/08/2020 03/08/2020 03/08/2020 11:04 AM UTILITY PLANT OPERATIVE COVID-19 pending 03/08/2020 03/08/2020 03/08/2020 2:29 PM UTILITY PLANT OPERATIVE COVID-19/FLU/RSV pending 05/08/2020 05/08/2020 10:52 AM UTILITY PLANT OPERATIVE Mycoplasma pending 05/08/2020 05/08/2020 1:00 PM UTILITY PLANT OPERATIVE documented as of this encounter Care Teams Assignment Manager Relationship Specialty Start Date End Date Mark Chery MD [address] [place] [address], [place] [address] PCP - General Family Medicine 12/06/16 06/12/22 Pancho English MD [address] [place] [address], [place] [address] PCP - General Family Medicine 06/13/22 Mark Chery MD [address] [place] [address], [place] [address] PCP - Attributed Provider-Medicare ACO 09/08/17 10/16/17 Mark Chery MD [address] [place] [address], [place] [address] PCP - Attributed Provider-Medicare ACO 12/09/17 03/25/18 Taurus Jerry MD Cardiology 05/06/14 05/20/20 Celestina Higgins, RN [address] [facility] [place] [place] [address] CCM Occupational Medicine Specialist 03/21/17 05/09/17 Lorena Ariza, [facility] [address] [address] Campaign Management Senior Manager 12/27/17 06/29/24 Merlene Wallis RN [address] [place] [address], [place] [address] CCM Occupational Medicine Specialist 12/27/17 10/02/18 Milo Olson RN [address] [place] [address], [place] [address] CCM Occupational Medicine Specialist 03/14/18 07/05/18 Osiris Mota RN [address] [place] [address], [place] [address] Design And Sales Consultant 08/25/21 09/23/21 Bernadette Bedolla RN [address] [place] [address], [place] [address] Design And Sales Consultant 06/30/24 documented as of this encounter
--- NOTE | 2025-01-30 18:53 | W.ED.GENADLT ---
HPI - General Adult General: Chief complaint: General Medical Stated complaint: ams - bgl 44 History of Present Illness: Patient is an 79-year-old male with past medical history of hypertension, CAD, CHF, diabetes, HLD who presents to the ED with hypoglycemia. Patient was reportedly at home and acting slightly confused and having generalized weakness and EMS was called, on their evaluation, sugar was 45, he was given a D10 bolus and improved to 90, mentation improved at that time. Patient was also seen for a episode similar to this earlier in the day. He is on metformi, Januvia and Glimepiride, he did take these medications after being discharged today. Associated symptoms: Reports confusion and diaphoresis Related Data Home Medications ?Medication ?Instructions ?Recorded ?Confirmed amlodipine 5 mg tablet 5 mg PO DAILY 01/30/25 01/30/25 aspirin 81 mg capsule 81 mg PO DAILY 01/30/25 01/30/25 citalopram 20 mg tablet 20 mg PO DAILY 01/30/25 01/30/25 clopidogrel 75 mg tablet 75 mg PO DAILY 01/30/25 01/30/25 fluticasone propionate 50 1 spray intranasal DAILY 01/30/25 01/30/25 mcg/actuation nasal spray,suspension furosemide 20 mg tablet 20 mg PO DAILY PRN Edema 01/30/25 01/30/25 glimepiride 2 mg tablet 2 mg PO QAM 01/30/25 01/30/25 metoprolol succinate 25 mg 25 mg PO DAILY 01/30/25 01/30/25 tablet,extended release 24 hr rosuvastatin 40 mg tablet 40 mg PO DAILY 01/30/25 01/30/25 tramadol 50 mg tablet 50 mg PO Q8H PRN Pain 01/30/25 01/30/25 Previous Rx's ?Medication ?Instructions ?Recorded losartan 100 mg tablet 50 mg (1/2 x 100 mg) PO DAILY #30 01/30/25 tabs sitagliptin phosphate 50 mg tablet 50 mg PO DAILY #30 tabs 01/30/25 (Januvia) Allergies Allergy/AdvReac Type Severity Reaction Status Date / Time No Known Allergies Allergy Unverified 01/30/25 08:37 Review of Systems General: Reports: 10 or more systems reviewed and unremarkable except in HPI and below Const: Reports: diaphoresis Neuro: Reports: confusion Physical Exam Narrative: EXAM NARRATIVE: Patient frail, but well-appearing, nontoxic, vital signs stable on arrival, afebrile, no acute distress. Blood sugar on recheck 50 but mentating appropriately at this time, appears slightly dehydrated. Normal sinus rhythm with no murmurs, no leg swelling, breathing comfortably on room air, saturating well, able to speak in full sentences, GCS 15, symmetrically and spontaneously moving all 4 extremities, no facial asymmetry. Course Vital Signs: Vital signs: Vital Signs Temperature 98.4 F 01/31/25 04:00 Pulse Rate 63 01/31/25 06:00 Respiratory Rate 16 01/31/25 04:00 Blood Pressure 130/62 01/31/25 04:00 Pulse Oximetry 93 01/31/25 04:00 Oxygen Delivery Me thod Room Air 01/31/25 04:00 MDM - General Adult Medical Decision Making -ddx: Hypoglycemia, medication side effect, dehydration, electrolyte abnormality - Patient overall well-appearing, with his second episode today coming to the ED for hypoglycemia, did take his long-acting diabetes medication in between these episodes, has a blood sugar less than 60 on arrival here but mentating appropriately, no neurodeficits, will replace with D10 and will also reverse his sulfonylurea with calcium, glucagon and octreotide, get basic labs, and reassess. - Patient with no other events of hypoglycemia but because of his age, being on 3 diabetes medications and being the second time this has happened today with the long half-life of the self on urea, he was admitted to the hospitalist in stable condition for further glycemic monitoring and reconciliation of his diabetes medications, daughter at bedside and updated with plan of care. Lab Data 01/30/25 19:49 01/31/25 04:31 Laboratory Results WBC 8.39 10^3/uL (3.29-11.43) 01/30/25 19:49 RBC 4.44 10^6/uL (3.85-5.65) 01/30/25 19:49 Hgb 12.80 g/dL (11.27-16.99) 01/30/25 19:49 Hct 40.9 % (37-53) 01/30/25 19:49 MCV 92.1 fl (82-101) 01/30/25 19:49 MCH 28.8 pg (27-33) 01/30/25 19:49 MCHC 31.3 g/dL (30-55) 01/30/25 19:49 RDW 15.3 % (12.1-15.1) H 01/30/25 19:49 Plt Count 293 10^3/cmm (157-399) 01/30/25 19:49 MPV 9.5 fL (7.4-10.4) 01/30/25 19:49 Neut % (Auto) 68.5 % 01/30/25 19:49 Lymph % (Auto) 11.6 % 01/30/25 19:49 Meeker % (Auto) 15.6 % 01/30/25 19:49 Eos % (Auto) 2.7 % 01/30/25 19:49 Baso % (Auto) 1.2 % 01/30/25 19:49 Neut # (Auto) 5.75 10^3/uL (1.8-7.7) 01/30/25 19:49 Lymph # (Auto) 1.0 10^3/uL (0.8-4.8) 01/30/25 19:49 Meeker # (Auto) 1.3 10^3/uL (0.2-0.9) H 01/30/25 19:49 Eos # (Auto) 0.2 10^3/uL (0.0-0.8) 01/30/25 19:49 Baso # (Auto) 0.1 10^3/uL (0.0-0.1) 01/30/25 19:49 Nucleated RBC % (auto) 0 % 01/30/25 19:49 Nucleated RBCs # 0.0 /100WBC 01/30/25 19:49 Specimen Type Venous 01/30/25 18:56 Gene Test Pos 01/30/25 18:56 VBG pH 7.39 (7.32-7.42) 01/30/25 18:56 VBG pCO2 35.7 mmHg (41-51) L 01/30/25 18:56 VBG pO2 142.0 mmHg (25-40) H 01/30/25 18:56 VBG HCO3 21.4 mmol/L (24-28) L 01/30/25 18:56 VBG Base Excess -3.0 mmol/L (-3.0-3.0) 01/30/25 18:56 VBG Hematocrit 45.0 % (42-52) 01/30/25 18:56 O2 Delivery Device Room air 01/30/25 18:56 FiO2 21.0 % 01/30/25 18:56 Clinical Resource Coordinator ID harley 01/30/25 18:56 POC Glucose 139 mg/dL (70-110) H 01/30/25 20:38 Lactic Acid 1.3 mmol/L (0.5-2.2) 01/30/25 19:49 Phosphorus 3.2 mg/dL (2.5-4.5) 01/30/25 19:49 Magnesium 1.5 mg/dL (1.7-2.3) L 01/30/25 19:49 No radiology studies performed this visit Critical Care Time Critical Care Time: Critical Care Time: Yes Total Critical Care Time: 33 Attestation: Recurrent hypoglycemia causing neurologic compromise and requiring reversal of diabetes medications Discharge Plan Discharge Patient Disposition: Admitted As Inpatient Admit Provider: Linda Wei Clinical Impression: Hypoglycemia Condition: Stable Coding Level of Care Code ED Skein Yarn Drier for Trena Chirinos
[2025-01-30] MEDS: calcium gluconate 0.1 gm/mL 10% SDV 10mL 1 GM IVP (19:09)
[2025-01-30] MEDS: glucagon 1 mg/mL KIT 1 mL SUBCUT (19:13)
[2025-01-30 19:17] LABS: Base Excess VBG -3.0 mmol/L (-3.0-3.0); Blood Gas Allen Test Pos; Blood Gas Operator Identificat gerca; Blood Gas Sample Type Venous; HCO3 VBG 21.4 mmol/L (24-28); PCO2 VBG 35.7 mmHg (41-51); PO2 VBG 142.0 mmHg (25-40); Venous Blood Gas Hematocrit 45.0 % (42-52); pH VBG 7.39 (7.32-7.42)
[2025-01-30] MEDS: ondansetron 2 mg/ML SDV 2 mL 4 MG IVP (19:43)
[2025-01-30 19:55] VITALS: BP 127/62; PULSE 62; O2SAT 93
[2025-01-30 20:08] LABS: Hematocrit 40.9 % (37-53); Hemoglobin 12.80 g/dL (11.27-16.99); Mean Corpuscular HGB Conc 31.3 g/dL (30-55); Mean Corpuscular Hemoglobin 28.8 pg (27-33); Mean Corpuscular Volume 92.1 fl (82-101); Nucleated Red Blood Cells % 0 %; Platelet Count 293 10^3/cmm (157-399); Red Blood Count 4.44 10^6/uL (3.85-5.65); White Blood Count 8.39 10^3/uL (3.29-11.43)
[2025-01-30 20:21] LABS: Magnesium 1.5 mg/dL (1.7-2.3)
[2025-01-30 20:22] LABS: Lactic Sepsis W/Reflex 1.3 mmol/L (0.5-2.2)
--- NOTE | 2025-01-30 21:17 | PM.HP ---
Providers/Chief Complaint Chief Complaint: ams - bgl 44 History of Present Illness Sha Bailey is a 79 year old male Medications/Allergies Home Medications ?Medication ?Instructions ?Recorded ?Confirmed ?Last Taken ?Type amlodipine 5 mg tablet 5 mg PO DAILY 01/30/25 01/30/25 01/29/25 History citalopram 20 mg tablet 20 mg PO DAILY 01/30/25 01/30/25 01/29/25 History clopidogrel 75 mg tablet 75 mg PO DAILY 01/30/25 01/30/25 01/29/25 History fluticasone propionate 50 1 spray intranasal DAILY 01/30/25 01/30/25 01/29/25 History mcg/actuation nasal spray,suspension furosemide 20 mg tablet 20 mg PO DAILY PRN Edema 01/30/25 01/30/25 Unknown History losartan 100 mg tablet 50 mg (1/2 x 100 mg) PO DAILY #30 01/30/25 01/30/25 01/29/25 Rx tabs metoprolol succinate 25 mg 25 mg PO DAILY 01/30/25 01/30/25 01/29/25 History tablet,extended release 24 hr rosuvastatin 40 mg tablet 40 mg PO DAILY 01/30/25 01/30/25 01/29/25 History sitagliptin phosphate 50 mg tablet 50 mg PO DAILY #30 tabs 01/30/25 Unknown Rx (Januvia) tramadol 50 mg tablet 50 mg PO Q8H PRN Pain 01/30/25 01/30/25 01/29/25 History Allergies Allergy/AdvReac Type Severity Reaction Status Date / Time No Known Allergies Allergy Unverified 01/30/25 08:37 Vitals/I&O/Wt Last Vital Signs Temp 98.1 F 01/30/25 18:31 Pulse 62 01/30/25 19:55 Resp 18 01/30/25 18:31 BP 127/62 01/30/25 19:55 Pulse Ox 93 01/30/25 19:55 O2 Del Method Room Air 01/30/25 18:31 Data 01/30/25 19:49 A&P Assessment and plan 1. Hypoglycemia: START OF MEDICAL REPORT Linda Wei D.O. Board Certified Internal Medicine Chief Complaint: Hypoglycemia History of Present Illness: The patient is an 79-year-old male who presented to [facility] a hyperglycemia. Of note, the patient had a hypoglycemic episode on the morning of January 30, 2025 and was seen in the emergency department and was discharged after this had resolved. The patient had another episode of encephalopathy at approximately 5 PM on the day of hospitalization. At that time serum glucose was checked and it was found to be a proximally 30. In the emergency department, the patient?s serum glucose was found to be 45. In the 24 hours leading up to his hospitalization the patient is to nausea and emesis. He denies fever, rigors, cough, wheeze, abdominal pain, diarrhea, myalgia, chest pain, dyspnea. The patient takes metformin and glimepiride for diabetes. He denies any recent additions to his antidiabetic regimen or change in dosages. He presents for further evaluation I have explained to the patient (if they are coherent, able to comprehend, and/or are communicative) and/or their family member(s), friend(s), guardian(s), and/or other individual(s) present on the patient?s behalf (if present) the patient?s current medical condition, the patient?s current plan of care, and I have answered all questions posed to me. Family History: Diabetes Physical Examination: General: -Alert. -No acute distress. -No dyspnea. -No tachypnea. ? Obese Head: -Atraumatic. -Normocephalic. Eyes: -Pupils equally round and reactive to light and accommodation. -Extraocular muscles intact. Neurological: -Cranial nerves II-XII intact. Neck: -No jugular venous distention. -No thyromegaly. -No cervical lymphadenopathy. Heart: -Regular rate. -Regular rhythm. -No murmurs. -No gallops. -No rubs. Lungs: -No wheeze. -No rhonchi. -No rales. Abdomen: -Normal bowel sounds in all four quadrants. -No rebound. -No guarding. -No tenderness. Extremities: -2/4 pulse in all four extremities. -No clubbing. -No cyanosis. -No edema. -No calf tenderness present bilaterally. -Negative Dolores?s sign bilaterally. Musculoskeletal: -5/5 bilateral upper extremity strength. -5/5 bilateral lower extremity strength. -Sensorium of bilateral upper extremities are equal and intact. -Sensorium of bilateral lower extremities are equal and intact. Additional Details / Additional Findings / Exceptions / Miscellaneous: Pertinent Laboratory Results / Pertinent Radiology Results / Pertinent Diagnostic Results / Pertinent Vital Signs: Blood pressure 127/62, heart rate 62, respiration 18, temperature 98.1?, 93% room air. Vantin 4.3, glucose 39, magnesium 1.5 Social History: Caffeine: Coffee Tobacco: Former smoker Alcohol: Present: Denies. Past: History of alcohol abuse Pets: Yes + Allergies: No known drug allergies Code Status: Full Admission Date: 9:15 PM on January 30, 2025 Discharge Date: History of Present Illness / Hospital Course Summary: The patient is an 79-year-old male who presented to [facility]. Of note, the patient had a hypoglycemic episode on the morning of January 30, 2025 and was seen in the emergency department and was discharged after this had resolved. The patient had another episode of encephalopathy at approximately 5 PM on the day of hospitalization. At that time serum glucose was checked and it was found to be a proximally 30. In the emergency department, the patient?s serum glucose was found to be 45. In the 24 hours leading up to his hospitalization the patient is to nausea and emesis. He denies fever, rigors, cough, wheeze, abdominal pain, diarrhea, myalgia, chest pain, dyspnea. The patient takes metformin and glimepiride for diabetes. He denies any recent additions to his antidiabetic regimen or change in dosages. He presents for further evaluation Surgical History: Lorenzo device implantation, cardiac ablation Assessment / Plan + Medical History: Hypoglycemia. Likely due to continued antidiabetic medication use in the face of acute renal failure. Will check fingerstick glucose every 2 hours. IV D5 NS at 100.5 mL/h Acute renal failure. We will monitor creatinine intermittently. Strict I/O. Daily weight. IV D5 NS at 100 x 5 ML?s per hour. If renal insufficiency persist despite fluid resuscitation, recommend bilateral renal ultrasound and check a urine sodium and urine creatinine to determine FENa as well as nephrology consultation Seasonal allergies Depression Coronary artery disease Hypomagnesemia. Will monitor magnesium level intermittently and supplemented as necessary CHF. Strict I/O. Daily weight. Diabetes Hyperlipidemia Hypertension History of atrial fibrillation, status post cardiac ablation, status post watchman device implantation. Telemetry monitoring DVT prophylaxis. Bilateral SCD Consultations: None Disposition: Anticipate discharge in 48-96 hours + Discharge Diet: 2 g sodium, cardiac, ADA, 2 L fluid restricted Discharge Activity: Discharge Condition: Discharge Medications: Time Spent with Patient: Greater than 30 minutes. Linda Wei D.O. Board Certified Internal Medicine END OF MEDICAL REPORT PDMP PDMP Reviewed: Not Reviewed Attestations Medical Necessity Statement*: Disposition: Anticipate discharge in 48-96 hours Coding Level of Care Code Acute Code for Chg Fwd Diagnoses Hypoglycemia E16.2
[2025-01-30 21:52] VITALS: BP 164/62; PULSE 74; O2SAT 95
[2025-01-30 22:44] VITALS: BP 124/62; PULSE 60; RESP 16; TEMP 36.6; O2SAT 95
[2025-01-30 22:56] VITALS: BP 108/61; PULSE 61; O2SAT 95
[2025-01-30] MEDS: dextrose 5%-sod chloride 0.9% 1,000 ML 125 ML IV (23:36)
[2025-01-30] MEDS: magnesium sulfate premix 2 GM/50 ML PIGGYBACK IV (23:50)
[2025-01-31] VITALS (9 sets, daily range): BP systolic 117–152; BP diastolic 60–74; PULSE 62–77; RESP 16–18; TEMP 36.6–37.1; O2SAT 92–97
[2025-01-31 05:18] LABS: Blood Urea Nitrogen 51 mg/dL (8-23); Calcium 8.1 mg/dL (8.5-10.5); Carbon Dioxide 23 mmol/L (22-29); Chloride 103 mmol/L (98-107); Glucose 130 mg/dL (65-115); Magnesium 2.2 mg/dL (1.7-2.3); Osmolality Calculated 297 mOsm/kg (285-295); Sodium 136 mmol/L (136-145)
[2025-01-31 05:29] LABS: Anion Gap 15.6 (5-19); Potassium 5.6 mmol/L (3.5-5.1)
[2025-01-31] MEDS: metoprolol succinate ER (24 HR) 25 mg Tablet PO (07:49)
--- NOTE | 2025-01-31 09:26 | P.PN_ITS ---
Subjective 2 Subjective: Patient seen this morning on the medical floor in the company of the . He is an 79-year-old male who was admitted yesterday because of apparent persistent hypoglycemia. He was also found to be renal failure, and subsequently admitted. He just finished 1 bag of D5 and saline, and he reports feeling very well. He is eating, and tolerating his diet. He reports prior history of CKD, for which he follows up with his PCP on that. Vitals/I&O/Wt Last Vital Signs Temp 97.8 F 01/31/25 07:45 Pulse 66 01/31/25 07:45 Resp 17 01/31/25 07:45 BP 152/73 01/31/25 07:45 Pulse Ox 92 01/31/25 07:45 O2 Del Method Room Air 01/31/25 07:45 01/30/25 01/31/25 01/31/25 22:59 06:59 14:59 Intake Total 50 / 50 1480 / 1480 Output Total 630 / 630 700 / 700 Balance -580 / -580 780 / 780 Weight last 48 hrs Weight 80.739 kg Weight 80.422 kg Weight 80.371 kg Physical Exam 2 Narrative: General: Awake and alert. Cooperative. Chest/Resp: Normal respiratory chest movts; no obvious respiratory distress. CVS: Regular heart rate and rhythm. GI: Non-distended; No obvious organomegaly. Extremities: No obvious pitting pedal edema. Skin: No obvious new rashes or new skin lesions. Data 01/30/25 19:49 01/31/25 04:31 A&P Assessment and plan 1. Hypoglycemia: Apparently due to hypoglycemic medication; glimepiride likely Demoulas significant culprit here. 2. Acute hyperkalemia: Mild. We will treat this conservatively with oral Kayexalate x 1, and we will check potassium level later this evening, and then tomorrow. 3. Type 2 diabetes mellitus without complication, with no history of insulin use: Currently stable. We are holding the oral hypoglycemic medication: Metformin and glimepiride. Treats any severe elevated blood sugar with as needed sliding scale insulin. 4. Essential hypertension: Currently stable. . Resume patient's home dose of amlodipine and metoprolol, as adjusted. I will hold her losartan at this time, given current acute renal failure. 5. [id number] renal failure: Likely prerenal, and/or due to ongoing symptomatology. Rehydrate cautiously with normal saline, and recheck BMP tomorrow morning. Plan: Currently stable patient. Like mentioned above, will treat empirically, and conservatively, as described above. Anticipate discharge tomorrow. PDMP PDMP Reviewed: Not Reviewed Attestations 2 Medical Necessity Statement*: Patient admitted for apparent severe clinical condition, as outlined in the Assessment & Plan section above. Patient will need up to 2 midnight stay, estimated, at least, to adequately and appropriately treat and optimally control above-named clinical conditions,. Coding Level of Care Code Acute Code for Chg Fwd Diagnoses Hypoglycemia E16.2 Acute hyperkalemia E87.5 Type 2 diabetes mellitus without complication, with no history of insulin use E11.9 Essential hypertension I10 [id number] renal failure N17.9; N18.9
--- NOTE | 2025-01-31 11:48 | PC.CHAP ---
Pastoral Care Encounter/Spiritual Assessment Type of Contact [] Declined chemical laboratory tester visit [X] Patient/Family/Request visit [] Outpatient visit [] Follow-up visit [] Physician referral [] Code/Alert [X] Routine visit [] Staff referral [] Actively dying [] Patient sleeping [] Family support [] [] Out of room [] Palliative care [] [] Receiving care in room [] Pre-surgical visit [] Trauma [] Long length of stay [] ICU visit [] Other: Relational/Emotional Strength [x] Patient feels connected with others/family/visitors/staff [] Distress [] Loneliness/isolation [] Abandonment Spirituality of Patient [x] Person of Tracee [] Attends Alevism of their Tracee [x] Believes in Prayer [] Reads Bible or Mandaen materials [] There are Spiritual issues to be addressed Process Controller Interventions [x] Prayer [x] Active listening [x] Non-anxious presence [x] Spiritual/emotional support [] Crisis/trauma care [] Spiritual counseling [] Bereavement support [] Provided bereavement packet [] Provided Bible/devotional materials [] Provided toy/stuffed animal, coloring book to patient or family member [] Provided Communion [] Anointing/[facility] [] Salvation [] Completed spiritual assessment [] Other: Impact on Illness or Injury [] Angry [] Fearful [x] Anxious [] Often cries [] Exhaustion [] Unable to work [] Unable to attend zoroastrian [] Unable to walk/stand [] Unable to read [] Unable to drive [] Unable to eat/drink [] Unable to sleep [] Unable to be with family [] Patient intubated [] Other: Summary Prayer long visit Time spent with patient 1 Hrs
[2025-02-01] VITALS: BP 150/67; PULSE 76; RESP 16; TEMP 37; O2SAT 93
[2025-02-01 04:00] VITALS: BP 157/68; PULSE 80; RESP 17; TEMP 37.3; O2SAT 93
[2025-02-01] MEDS: metoprolol succinate ER (24 HR) 25 mg Tablet PO (04:20)
[2025-02-01 04:54] LABS: Blood Urea Nitrogen 45 mg/dL (8-23); Calcium 8.0 mg/dL (8.5-10.5); Carbon Dioxide 25 mmol/L (22-29); Chloride 107 mmol/L (98-107); Glucose 116 mg/dL (65-115); Osmolality Calculated 309 mOsm/kg (285-295); Sodium 143 mmol/L (136-145)
[2025-02-01 05:04] LABS: Anion Gap 15.1 (5-19); Potassium 4.1 mmol/L (3.5-5.1)
[2025-02-01 06:00] VITALS: BMI 26.1
[2025-02-01 07:12] VITALS: PULSE 68
[2025-02-01 07:30] VITALS: BP 172/80; PULSE 67; RESP 18; TEMP 36.9; O2SAT 93
--- NOTE | 2025-02-01 08:58 | P.DS_ITS ---
Discharge Providers Date of Admission: 01/30/25 21:10 Date of Discharge: February 01, 2025 Attending Provider at Admission: Linda Wei DO Attending Provider at Discharge: González Kohler MD Diagnoses at Discharge Discharge Diagnosis 1. Hypoglycemia: 2. Acute hyperkalemia: 3. [id number]-ssudtpi renal failure: 4. Type 2 diabetes mellitus without complication, with no history of insulin use: 5. Essential hypertension: 6. CKD (chronic kidney disease): Reason for Visit Reason for Visit: low blood sugar Brief History: Patient is an 79-year-old male with known diabetes mellitus type II & CKD, who came into the hospital with blood sugar that was persistently in the 30s. Initial blood sugar on presentation was 33. He was started on some IV d extrose infusion, while the antidiabetic medications were held. Also, losartan, his antihypertensive medication, was held, given apparent exacerbation of kidney function. Potassium was also elevated to 4.6; this was treated empirically with IV infusion and one-time dose of oral Kayexalate. Hospital Course Hospital Course Given apparent LEAH on top of CKD, she was started on some IV normal saline after the 5% dextrose infusion. Otherwise, his diet was advanced as tolerated. As at this morning, her blood sugar is blood sugar has remained stable, while the kidney function appears to have returned closer to baseline. Given stable symptoms, he is therefore discharged today. Advise: He is to stop/hold the glimepiride, while continuing the Januvia, until seen & reviewed by the PCP. Physical Exam Narrative: General: Awake and alert patient. Resp: No obvious respiratory distress or difficulty breathing. Skin: No obvious rashes or new skin lesions. All other physical findings essentially within normal limits. Discharge Data Studies Completed and Pending Pending at discharge Category Date Time Status Basic Metabolic Panel AM LABS Lab 02/02/25 04:00 Ordered Basic Metabolic Panel AM LABS Lab 02/03/25 04:00 Ordered Osmolality Serum Stat Lab 01/30/25 19:49 Received VBG [Venous Blood Gas] Stat Lab 01/30/25 18:56 Results Laboratory Results Sodium 143 mmol/L (136-145) 02/01/25 03:36 Potassium 4.1 mmol/L (3.5-5.1) 02/01/25 03:36 Chloride 107 mmol/L (98-107) 02/01/25 03:36 Carbon Dioxide 25 mmol/L (22-29) 02/01/25 03:36 Anion Gap 15.1 (5-19) 02/01/25 03:36 BUN 45 mg/dL (8-23) H 02/01/25 03:36 Creatinine 4.4 mg/dL (0.7-1.2) H 02/01/25 03:36 GFR Calculation Not Reportable 02/01/25 03:36 Glucose 116 mg/dL (65-115) H 02/01/25 03:36 POC Glucose 101 mg/dL (70-110) 02/01/25 06:31 Calculated Osmolality 309 mOsm/kg (285-295) H 02/01/25 03:36 Lactic Acid 1.3 mmol/L (0.5-2.2) 01/30/25 19:49 Calcium 8.0 mg/dL (8.5-10.5) L 02/01/25 03:36 Phosphorus 3.3 mg/dL (2.5-4.5) 01/31/25 04:31 Magnesium 2.2 mg/dL (1.7-2.3) 01/31/25 04:31 Vitals Last Vital Signs Temp 98.4 F 02/01/25 07:30 Pulse 67 02/01/25 07:30 Resp 18 02/01/25 07:30 BP 172/80 02/01/25 07:30 Pulse Ox 93 02/01/25 07:30 O2 Del Method Room Air 02/01/25 07:30 Discharge Plan Discharge Patient Disposition: Home Condition: Stable Prescriptions: Continued clopidogrel 75 mg tablet 75 mg PO DAILY amlodipine 5 mg tablet 5 mg PO DAILY tramadol 50 mg tablet 50 mg PO Q8H PRN (Reason: Pain) citalopram 20 mg tablet 20 mg PO DAILY metoprolol succinate 25 mg tablet extended release 24 hr 25 mg PO DAILY fluticasone propionate 50 mcg/actuation spray,suspension 1 spray INTRANASAL DAILY rosuvastatin 40 mg tablet 40 mg PO DAILY furosemide 20 mg tablet 20 mg PO DAILY PRN (Reason: Edema) Januvia 50 mg tablet 50 mg PO DAILY Qty: 30 0RF losartan 100 mg tablet 50 mg PO DAILY Qty: 30 0RF aspirin 81 mg Capsule 81 mg PO DAILY Discontinued glimepiride 2 mg Tablet 2 mg PO QAM Rx Instructions: administer with breakfast Discharge Order = DC NOW: Discharge Order (Routine); Ordered 02/01/25 Ordered By: González Kohler Discharge Diet: Diabetic Discharge Activity: Resume usual activity and Increase activity as tolerated Patient Instructions: Chronic Kidney Disease (GEN), Hypoglycemia in a Person with Diabetes (GEN), Opioid Safety, Patient Portal & Umesh Instructions Activity Restrictions/Additional Instructions: Measure and keep daily log of your blood sugars. Show blood sugar log to PCP during next office visit. Follow-up with PCP in the next 1 to 2 weeks. Discharge Attestations Time Spent in Discharge Care*: less than 30 min Quality Metrics Clinical Quality Measures [ No reported AMI, CVA or VTE this stay] Coding Level of Care Code Acute Code for Chg Fwd Diagnoses Hypoglycemia E16.2 Acute hyperkalemia E87.5 Qbnhq-sk-[id number] renal failure N17.9; N18.9 Type 2 diabetes mellitus without complication, with no history of insulin use E11.9 Essential hypertension I10 CKD (chronic kidney disease) N18.9
[2025-02-01 09:27] VITALS: BP 172/80; PULSE 67; RESP 18; TEMP 36.9; O2SAT 93
== END 2025-02-01 09:32 | disposition home or self-care (01) | DRG 682 ==
LOC: ER 19:58 → MEDSURG 21:44
PROVIDERS: Admitting Provider Internal Medicine; Emergency Provider Student in an Organized Health Care Education/Training Program; Visit Provider Family Medicine
DX: N17.9 Acute kidney failure, unspecified (principal); G93.41 Metabolic encephalopathy; E11.649 Type 2 diabetes mellitus with hypoglycemia without coma; E11.22 Type 2 diabetes mellitus with diabetic chronic kidney disease; I12.9 Hypertensive chronic kidney disease with stage 1 through stage 4 chronic kidney disease, or unspecified chronic kidney disease; N18.9 Chronic kidney disease, unspecified; E87.5 Hyperkalemia; F10.11 Alcohol abuse, in remission; F32.A Depression, unspecified; I25.10 Atherosclerotic heart disease of native coronary artery without angina pectoris; E83.42 Hypomagnesemia; E78.5 Hyperlipidemia, unspecified; I48.91 Unspecified atrial fibrillation; Z79.02 Long term (current) use of antithrombotics/antiplatelets; Z79.891 Long term (current) use of opiate analgesic; Z79.82 Long term (current) use of aspirin; Z87.891 Personal history of nicotine dependence
CPT/HCPCS: 36415; 36416; 80048; 82803; 82962; 83605; 83735; 83930; 84100; 85025; 96372; 96374; 96375; 99285; 99291; J0612; J1610; J2354; J2405; J3475; J7030; J7042; J7799; J9999